=== PATIENT | male | born 1930 | race Caucasian/White ===

== ENCOUNTER 2018-11-29 18:47 | Inpatient (IN) | payer OTHER ==
[~2018-11-29] VITALS: Ht 167.6 cm; Wt 73.9 kg
--- NOTE | 2018-11-29 18:47 | NUR ---
Patient BIBA [facility] accompanied by Robin 183, triaged by RN. Waiting for an available bed.
[2018-11-29 18:50] VITALS: BP 131/76
--- NOTE | 2018-11-29 18:50 | NUR ---
Patient transferred to bed 1. RN evaluating patient at bedside.
--- NOTE | 2018-11-29 18:59 | NUR ---
BIB [facility] FROM HOME WITH C/O SEPTIC, ALOC, AND SOB X 1 DAY. ON CONTINOUS BREATHING TX WITH ALBUTEROL UPON ARIVAL. PT NON VERBAL. HX ALL TAKEN FROM [facility]; STROKE 2 YRS AGO RX; SEE MED SHEETS Addendum: 11/29/18 at 1904 by [email or web address] PT HAS G TUBE AT ABDOMEN
--- NOTE | 2018-11-29 19:27 | NUR ---
Pt report given to MICHAEL PRITCHARD. Transfer of care at this time.
--- NOTE | 2018-11-29 19:27 | NUR ---
ASSUMED CARE OF PT FROM MACHO BOWLES
[2018-11-29] MEDS ORDERED: NACL 0.9% 1,000 ML IV ONE (19:30)
[2018-11-29] MEDS ORDERED: ALBUTEROL SULFATE/IPRATROPIU 3 ML SOL IH ONE (19:30)
--- NOTE | 2018-11-29 19:30 | NUR ---
# 14 FR Urinary catheter inserted utilizing sterile technique. Immediate return of 135 ml YELLOW CLEAR urine noted. Urine sample collected and sent to lab. Pt tolerated procedure WELL. CATH REMOVED, INTACT.
[2018-11-29] MEDS ORDERED: RIVA20TA PO (19:44)
[2018-11-29] MEDS ORDERED: FINA5TAB1 PO (19:44)
[2018-11-29] MEDS ORDERED: LEVE100S PO (19:44)
[2018-11-29] MEDS ORDERED: CAR30 PO (19:44)
[2018-11-29] MEDS ORDERED: METO25TA PO (19:44)
[2018-11-29] MEDS ORDERED: DIGO0.122 PO (19:44)
[2018-11-29] MEDS ORDERED: ACETAMINOPHEN 650 MG SUPP RC ONE (20:15)
[2018-11-29 20:22] LABS: BASOPHILS % (AUTO) 0.2 % (0.0-2.0); EOSINOPHILS % (AUTO) 0.3 % (0.0-4.0); HEMATOCRIT 37.3 % (36-52); HEMOGLOBIN 11.9 g/dL (12.0-18.0); LYMPHOCYTES # (AUTO) 1.8 K/uL (2.0-11.5); LYMPHOCYTES % (AUTO) 13.9 % (20.5-51.1); MEAN CORPUSCULAR HEMOGLOBIN 30 pg (27-31); MEAN CORPUSCULAR HGB CONC 32 g/dL (33-37); MEAN CORPUSCULAR VOLUME 94.9 fL (80-94); MONOCYTES % (AUTO) 7.4 % (1.7-9.3); NEUTROPHILS # (AUTO) 10.3 K/uL (1.8-7.7); NEUTROPHILS % (AUTO) 78.2 % (42.2-75.2); PLATELET COUNT (AUTO) 199 K/uL (140-450); RED BLOOD CELL COUNT(AUTO) 3.93 MIL/uL (4.20-6.10); RED CELL DISTRIBUTION WIDTH 15.6 % (11.6-13.7); WHITE BLOOD COUNT (AUTO) 13.2 K/uL (4.8-10.8)
[2018-11-29 20:29] LABS: APPEARANCE,URINE CLEAR (CLEAR); BILIRUBIN,URINE NEGATIVE (NEGATIVE); BLOOD, URINE NEGATIVE (NEGATIVE); COLOR,URINE YELLOW (YELLOW); LEUKOCYTE ESTERASE ,URINE NEGATIVE (NEGATIVE); NITRITE, URINE NEGATIVE (NEGATIVE); UGLUCOSE 3+ (NEGATIVE)
[2018-11-29 20:31] LABS: ANION GAP 12.6 (8-16); CARBON DIOXIDE 27.9 mmol/L (21-32); CHLORIDE 101 mmol/L (98-107); CREATININE 0.8 mg/dL (0.7-1.3); GLUCOSE 258 mg/dL (74-106); POTASSIUM 3.5 mmol/L (3.5-5.1); SODIUM SERUM 138 mmol/L (136-145); UREA NITROGEN, BLOOD 13 mg/dL (7-18)
[2018-11-29 20:37] LABS: ALBUMIN 2.3 g/dL (3.4-5.0); ASPARTATE AMINOTRANSFERASE 25 U/L (15-37); TOTAL BILIRUBIN 0.9 mg/dL (0.0-1.0)
[2018-11-29] MEDS ORDERED: PIPERACILLIN/TAZOBACTAM 3.375 GM in DEXTROSE 5% 50 ML IV ONE (20:40)
[2018-11-29 20:41] LABS: PROTHROMBIN TIME 13.2 secs (10.8-13.4)
[2018-11-29] MEDS ORDERED: PIPERACILLIN/TAZOBACTAM 3.375 GM VIAL IV ONE (20:49)
--- NOTE | 2018-11-29 20:53 | NUR ---
PT CLEANED AND REPOSITIONED. SHEETS CHANGED. PT FAMILY AT BEDSIDE AT THIS TIME. ALL QUESTIONS AND CONCERNS ADDRESSED.
--- NOTE | 2018-11-29 21:05 | NUR ---
FLU SWAB COMPLETE.
--- NOTE | 2018-11-29 21:32 | NUR ---
PT IN BED, ALL VSS.
[2018-11-29] MEDS ORDERED: ONDANSETRON 4 MG/2 ML VIAL IM/IVP PRN (22:25)
[2018-11-29] MEDS ORDERED: HYDROcodone/APAP 7.5/325 MG 1 TAB PO PRN (22:25)
[2018-11-29] MEDS ORDERED: DOCUSATE SODIUM 100 MG GELCAP PO PRN (22:25)
[2018-11-29] MEDS ORDERED: ACETAMINOPHEN 325 MG TAB PO PRN (22:25)
[2018-11-29] MEDS ORDERED: MEDICATION REC. PHARMACY CONS. 1 EA MISC MC PRN (22:30)
--- NOTE | 2018-11-29 22:54 | NUR ---
Patient will be admitted to care of DR RICHEY. Admited to TELE. Will go to room 107-B. Belongings list completed. Report to MACHO MEDINA.
--- NOTE | 2018-11-29 22:55 | NUR ---
Patient arrived in unit via [place], assisted by two TRAVELING FREIGHT AGENT's; patient is A/Ox1, drowsy and aphasic. Unable to ambulate from [facility]. Introduced self, updated board, oriented patient to hospital environment. No SOB or distress noted, on O2 at 2LPM via nasal cannula. IV site on right hand, 22 gauge, flushed and patent. Skin intact. Chief complaint of SOB and ALOC. Diagnosis is Sepsis, unknown source. Vital signs upon admission are as follows: BP 134/59, RR 21, HR 84, Temp 98.2 degrees F., O2Sat at 96% on O2 2LPM. Bed in the lowest position, call light within reach. Initial assessment done. Will continue to monitor.
[2018-11-29] MEDS ORDERED: NACL 0.9% 1,000 ML IV SCH (23:00)
[2018-11-29 23:08] LABS: CHOL/HDL RATIO 2.9 (1-4.5); FREE T4 (FREE THYROXINE) 1.06 ng/dL (0.76-1.46); MAGNESIUM 2.3 mg/dL (1.8-2.4); PHOSPHORUS 1.9 mg/dL (2.5-4.9); THYROID STIMULATING HORMONE 1.62 uIU/mL (0.34-3.74)
[2018-11-30] VITALS: BP 127/57
[2018-11-30] MEDS ORDERED: SODIUM PHOS / POTASSIUM PHOS 1 PKT PDR GT SCH
[2018-11-30] MEDS: DEXT 5% /NACL 0.9% 1,000 ML IV SCH ×3 (00:10→15:44)
--- NOTE | 2018-11-30 00:40 | NUR ---
Vitals taken; notice patient was shaking/possible seizure. Dr. Laws made aware; orders made and carried out. Will continue to monitor.
[2018-11-30] MEDS ORDERED: LORazepam 2 MG/ML VIAL IVP PRN (00:45)
--- NOTE | 2018-11-30 02:00 | NUR ---
Frequent checks made, no distress noted.
[2018-11-30 04:00] VITALS: BP 147/64
--- NOTE | 2018-11-30 04:05 | NUR ---
Vitals taken, patient asleep, visible chest rise and fall noted.
--- NOTE | 2018-11-30 07:05 | NUR ---
Endorsed patient to AM shift RN; patient in stable condition.
--- NOTE | 2018-11-30 07:06 | NUR ---
RECEIVED REPORT FROM PM NURSE AT BEDSIDE. PT IS ON SEIZURE PRECAUTION. AOX1/ HAS RT WRIST 22 G. IVF INFUSING WELL. PT IS APHASIC, IS NPO . PT HAS G-TUBE . NO TUBE FEEDING STARTED ON PT YET. SIDE RAILS PADDED, FALL RISK PROTOCOL IN PLACE. WILL CONTINUE TO MONITOR PT.
[2018-11-30 07:17] LABS: BASOPHILS % (AUTO) 0.3 % (0.0-2.0); EOSINOPHILS % (AUTO) 0.3 % (0.0-4.0); HEMATOCRIT 38.6 % (36-52); HEMOGLOBIN 12.4 g/dL (12.0-18.0); LYMPHOCYTES # (AUTO) 0.8 K/uL (2.0-11.5); LYMPHOCYTES % (AUTO) 6.2 % (20.5-51.1); MEAN CORPUSCULAR HEMOGLOBIN 31 pg (27-31); MEAN CORPUSCULAR HGB CONC 32 g/dL (33-37); MEAN CORPUSCULAR VOLUME 95.8 fL (80-94); MONOCYTES # (AUTO) 0.6 K/uL (0.8-1.0); MONOCYTES % (AUTO) 4.7 % (1.7-9.3); NEUTROPHILS # (AUTO) 10.9 K/uL (1.8-7.7); NEUTROPHILS % (AUTO) 88.5 % (42.2-75.2); PLATELET COUNT (AUTO) 220 K/uL (140-450); RED BLOOD CELL COUNT(AUTO) 4.02 MIL/uL (4.20-6.10); RED CELL DISTRIBUTION WIDTH 15.6 % (11.6-13.7); WHITE BLOOD COUNT (AUTO) 12.3 K/uL (4.8-10.8)
[2018-11-30 07:55] VITALS: BP 126/57
--- NOTE | 2018-11-30 08:38 | NUR ---
PATIENT HAS BEEN SCREENED AND CATEGORIZED HIGH NUTRITION RISK. PATIENT WILL BE SEEN WITHIN 1-2 DAYS OF ADMISSION. 11/30/18-12/01/[address]
[2018-11-30] MEDS ORDERED: levETIRAcetam 100 MG/ML ORASYR PO SCH (09:00)
[2018-11-30] MEDS ORDERED: DIGOXIN 0.125 MG TAB PO SCH (09:00)
[2018-11-30] MEDS: FINASTERIDE 5 MG TAB PO SCH (09:18)
[2018-11-30] MEDS: levETIRAcetam 100 MG/ML ORASYR PO SCH ×2 (09:18→20:47)
[2018-11-30] MEDS: LACTOBACILLUS RHAMNOSUS GG 1 EACH CAP PO SCH (09:18)
[2018-11-30] MEDS: PIPER/TAZO 3.375GM/D5W PREMIX 50 ML IV SCH ×3 (09:32→22:13)
--- NOTE | 2018-11-30 09:40 | NUR ---
ADMINISTERED MEDS TO PT ORDERED VIA G-TUBE. GT PATENT AND INTACT. NO GASTRIC RESIDUAL OBTAINED. PT TRANSPORTATION ESCORT AT THE BEDSIDE. STATES PT SLEEPS ALL THE TIME/ GETS ALL MEDS THROUGH HIS GT. NO SIGN OF DISTRESS NOTED. PTS LACTIC ACID 3.9, AWARE. WILL CONTINUE TO MONITOR PT
[2018-11-30] MEDS ORDERED: CLINICAL MONITORING MC PRN (10:25)
--- NOTE | 2018-11-30 11:00 | NUR ---
PT LYING ON HIS BED. CONTINUOUS IMPROVEMENT MANAGER AT THE BEDSIDE. TALKED TO HIS SON EARLIER, UPDATED ON PT. INFORMED PTS SON THAT PT IS BEING TREATED WITH ABX FOR HIS SEPSIS AND HAS HIGHER LACTIC ACID. NO SIGN OF DISTRESS NOTED. ALL SAFETY MEASURE IN PLACE. WILL CONTINUE TO MONITOR PT.
[2018-11-30 11:10] LABS: ANION GAP 17.2 (8-16); CARBON DIOXIDE 24.9 mmol/L (21-32); CHLORIDE 105 mmol/L (98-107); CREATININE 0.8 mg/dL (0.7-1.3); GLUCOSE 189 mg/dL (74-106); POTASSIUM 4.1 mmol/L (3.5-5.1); SODIUM SERUM 143 mmol/L (136-145); UREA NITROGEN, BLOOD 9 mg/dL (7-18)
[2018-11-30 12:00] VITALS: BP 115/52
[2018-11-30] MEDS ORDERED: DILTIAZEM 30 MG TAB PO SCH (13:00)
--- NOTE | 2018-11-30 13:55 | NUR ---
CHECKED ON THE PT. WITH SURGICAL TECH AT BEDSIDE. NO SIGN OF DISTRESS NOTED. NO SEIZURE NOTED AT THIS TIME. PT FAMILY AT THE BEDSIDE. WILL CONTINUE TO MONITOR PT.
--- NOTE | 2018-11-30 14:10 | NUR ---
11/30/18 RD INITIAL ASSESSMENT COMPLETED PLEASE REFER TO NUTRITION ASSESSMENT UNDER CARE ACTIVITY FOR ESTIMATED NUTRITIONAL NEEDS. 1. CONTINUE NPO MEDICALLY APPROPRIATE 2. WHEN PT IS STABLE TO RECEIVE NUTRITION, RECOMMEND VITAL 1.2 AT 65 ML/HR -THIS WILL PROVIDE A VOLUME OF 1560 ML, 1872 KCAL, 117 GRAM PROTEIN. IT WILL MEET 100% OF PT�S ENERGY AND PROTEIN NEEDS. 3. RECOMMEND FWF [address] TO FOLLOW-UP 2-3 DAYS, HIGH RISK JANICE LABOY RD
[2018-11-30 16:00] VITALS: BP 121/66
[2018-11-30] MEDS: RIVAROXABAN 10 MG TAB PO SCH (16:50)
--- NOTE | 2018-11-30 16:50 | NUR ---
ADMINISTERED MEDS TO PT ORDERED. PT LYING ON HIS LFT LATERAL POSITION. NO SIGN OF DISTRESS NOTED. PT CAREGIVER AT THE BEDSIDE. GT PATENT AND FLUSHED WELL. NO GASTRIC RESIDUAL NOTED FORM THE PT, HAS SLIGHTLY DISTENSION OF THE STOMACH. KUB DONE IN AM, WAITING FOR THE RESULT. PT DAUGHTER CALLED REGARDING THE GT TUBE FEEDING. INFORMED HER THAT WAITING ON THE KUB RESULT TO RULE OUT THE OBSTRUCTION OF THE STOMACH. VERBALIZED UNDERSTANDING. WILL CONTINUE TO MONITOR PT.
[2018-11-30] MEDS: DILTIAZEM 60 MG TAB PO SCH ×2 (18:00→23:58)
--- NOTE | 2018-11-30 19:20 | NUR ---
ENDORSED PT TO PM NURSE AT BEDSIDE. PT IN STABLE CONDITION.
--- NOTE | 2018-11-30 19:21 | NUR ---
RECEIVED REPORT FROM DAY SHIFT NURSE ERNA-RN AT BEDSIDE. PT FAMILY AT BEDSIDE. AOX1- NON-VERBAL, ON 2L/NC, RIGHT HAND #22G AND G-TUBE IN PLACE. DISCUSSED PLAN OF CARE AND PT FAMILY VERBALIZED UNDERSTANDING. NO S/S OF RESPIRATORY DISTRESS OR DISCOMFORT AT THIS TIME. BED IN LOWEST POSITION, BED BREAKS ON, BOTH SIDE RAILS UP AND BOTH FALL AND SEIZURE PRECAUTIONS ARE IN PLACE. BEDSIDE TABLE AND CALL LIGHT ARE WITHIN REACH. WILL CONTINUE TO MONITOR.
[2018-11-30 20:00] VITALS: BP 145/53
--- NOTE | 2018-11-30 20:00 | NUR ---
VITAL SIGNS TAKEN AND TOLERATED WELL. NO S/S OF RESPIRATORY DISTRESS OR DISCOMFORT NOTED AT THIS TIME. WILL CONTINUE TO MONITOR.
[2018-11-30] MEDS: METOPROLOL 50 MG TAB PO SCH (20:47)
--- NOTE | 2018-11-30 20:47 | NUR ---
SCHEDULED MEDICATION GIVEN AND TOLERATED WELL. ZERO RESIDUAL. NO S/S OF RESPIRATORY DISTRESS OR DISCOMFORT NOTED AT THIS TIME. WILL CONTINUE TO MONITOR.
--- NOTE | 2018-11-30 21:30 | NUR ---
G-TUBE FEEDING WITH VITAL AF 1.2 STARTING AT 35ML/HR AND INCREASE 10ML/HR Q6H, WATER FLUSHES 150ML @6H. HOLD IF RESIDUAL IS <200ML, REASSESS IN ONE HOUR AND RESUME IF RESIDUAL IS <50ML. PT TOLERATING WELL. NO S/S OF RESPIRATORY DISTRESS OR DISCOMFORT NOTED AT THIS TIME. WILL CONTINUE TO MONITOR.
--- NOTE | 2018-11-30 22:13 | NUR ---
SCHEDULED MEDICATION ZOSYN GIVEN AND TOLERATED WELL. NO S/S OF RESPIRATORY DISTRESS OR DISCOMFORT NOTED AT THIS TIME. WILL CONTINUE TO MONITOR.
--- NOTE | 2018-11-30 23:58 | NUR ---
VITAL SIGNS TAKEN AND TOLERATED WELL. SCHEDULED MEDICATION CARDIZEM GIVEN AND TOLERATED WELL. NO S/S OF RESPIRATORY DISTRESS OR DISCOMFORT NOTED AT THIS TIME. WILL CONTINUE TO MONITOR.
[2018-12-01] VITALS: BP 118/47
--- NOTE | 2018-12-01 02:00 | NUR ---
PT SLEEPING IN BED. NO S/S OF RESPIRATORY DISTRESS OR DISCOMFORT NOTED AT THIS TIME. WILL CONTINUE TO MONITOR.
[2018-12-01 04:00] VITALS: BP 113/50
--- NOTE | 2018-12-01 04:00 | NUR ---
VITAL SIGNS TAKEN AND TOLERATED WELL. NO S/S OF RESPIRATORY DISTRESS OR DISCOMFORT NOTED AT THIS TIME. WILL CONTINUE TO MONITOR.
[2018-12-01] MEDS: DILTIAZEM 60 MG TAB PO SCH ×3 (05:35→17:13)
--- NOTE | 2018-12-01 05:35 | NUR ---
SCHEDULED MEDICATION GIVEN AND TOLERATED WELL. NO S/S OF RESPIRATORY DISTRESS OR DISCOMFORT NOTED AT THIS TIME. WILL CONTINUE TO MONITOR.
[2018-12-01 06:19] LABS: BASOPHILS # (AUTO) 0.1 K/uL (0.00-0.22); BASOPHILS % (AUTO) 0.6 % (0.0-2.0); EOSINOPHILS # (AUTO) 0.4 K/uL (0-0.4); EOSINOPHILS % (AUTO) 4.1 % (0.0-4.0); HEMATOCRIT 33.8 % (36-52); HEMOGLOBIN 11.2 g/dL (12.0-18.0); LYMPHOCYTES % (AUTO) 10.5 % (20.5-51.1); MEAN CORPUSCULAR HEMOGLOBIN 32 pg (27-31); MEAN CORPUSCULAR HGB CONC 33 g/dL (33-37); MEAN CORPUSCULAR VOLUME 95.4 fL (80-94); MONOCYTES # (AUTO) 0.6 K/uL (0.8-1.0); MONOCYTES % (AUTO) 6.9 % (1.7-9.3); NEUTROPHILS # (AUTO) 7.1 K/uL (1.8-7.7); NEUTROPHILS % (AUTO) 77.9 % (42.2-75.2); PLATELET COUNT (AUTO) 207 K/uL (140-450); RED BLOOD CELL COUNT(AUTO) 3.55 MIL/uL (4.20-6.10); RED CELL DISTRIBUTION WIDTH 15.3 % (11.6-13.7); WHITE BLOOD COUNT (AUTO) 9.1 K/uL (4.8-10.8)
[2018-12-01 06:33] LABS: ANION GAP 8.7 (8-16); CARBON DIOXIDE 29.9 mmol/L (21-32); CHLORIDE 108 mmol/L (98-107); CREATININE 0.7 mg/dL (0.7-1.3); GLUCOSE 167 mg/dL (74-106); POTASSIUM 3.6 mmol/L (3.5-5.1); SODIUM SERUM 143 mmol/L (136-145); UREA NITROGEN, BLOOD 8 mg/dL (7-18)
[2018-12-01] MEDS: PIPER/TAZO 3.375GM/D5W PREMIX 50 ML IV SCH ×3 (06:35→20:20)
--- NOTE | 2018-12-01 06:35 | NUR ---
SCHEDULED MEDICATION ZOSYN GIVEN AND TOLERATED WELL. NO S/S OF RESPIRATORY DISTRESS OR DISCOMFORT NOTED AT THIS TIME. WILL CONTINUE TO MONITOR.
[2018-12-01] MEDS: DEXT 5% /NACL 0.9% 1,000 ML IV SCH (06:39)
[2018-12-01 06:43] LABS: MAGNESIUM 2.2 mg/dL (1.8-2.4); PHOSPHORUS 2.3 mg/dL (2.5-4.9)
--- NOTE | 2018-12-01 07:05 | NUR ---
ENDORSED PT CARE TO DAY SHIFT NURSE SITAL-RN FOR CONTINUITY OF CARE.
--- NOTE | 2018-12-01 07:06 | NUR ---
RECEIVED REPORT FROM PM NURSE AT BEDSIDE. PT ON TUBE FEEDING, INFUSING AT 45 ML/HR. TO BE INCREASED BY 10 ML EVERY 6 HRS, GAOL IS 65 ML/HR.TUBE FEEDING INFUSING WELL. PT IS ON SEIZURE PRECAUTION. HAS IVF INFUSING WELL. ALL SAFETY MEASURE IN PLACE. VS NOTED NORMAL . WILL CONTINUE TO MONITOR PT.
[2018-12-01 07:55] VITALS: BP 125/57
[2018-12-01 08:23] LABS: FOLIC ACID 17.5 ng/mL (>3.0)
[2018-12-01] MEDS: METOPROLOL 50 MG TAB PO SCH ×2 (09:40→20:22)
[2018-12-01] MEDS: FINASTERIDE 5 MG TAB PO SCH (09:40)
[2018-12-01] MEDS: LACTOBACILLUS RHAMNOSUS GG 1 EACH CAP PO SCH (09:40)
[2018-12-01] MEDS: levETIRAcetam 100 MG/ML ORASYR PO SCH ×2 (09:41→20:21)
[2018-12-01] MEDS: DIGOXIN 0.125 MG/2.5 ML UDC GT SCH (09:41)
--- NOTE | 2018-12-01 10:03 | NUR ---
ADMINISTERED MEDS O PT ORDERED. TELEPHONE ANSWERER AT THE BEDSIDE. PT HAS TUBE FEEDING RUNNING. INCREASED TO 55 ML/HR, 3 ML GASTRIC RESIDUAL OBSERVED. NO SIGN OF DISTRESS. PT HAS THE FLAME, SUCTIONED THE PT.TALKED TO PT FAMILY, ASKING IF PT CAN GET THE BREATHING TREATMENT PT GETS BREATHING TREATMENT AT HOME FOR THE FLAMES. CHARGE NURSE MADE AWARE. WILL TALK TO MD AT BED MOE.. NO DISTRESS NOTED AT THIS TIME. WILL CONTINUE TO MONITOR PT.
[2018-12-01] MEDS ORDERED: ALBUTEROL SULFATE/IPRATROPIU 3 ML SOL IH PRN (10:30)
[2018-12-01 12:00] VITALS: BP 118/57
--- NOTE | 2018-12-01 12:33 | NUR ---
ADMINISTERED MEDS TO PT ORDERED. PT LYING COMFORTABLY IN HIS BED. SPD MANAGER AT THE BEDSIDE. PT HAS NO GASTRIC RESIDUAL. HAS TUBE FEEDING INFUSING WELL. ALL SAFETY MEASURE IN PL;SANDOR. DR PEREZ AT THE BEDSIDE. WILL CONTINUE TO MONITOR PT.
[2018-12-01] MEDS: ALBUTEROL SULFATE/IPRATROPIU 3 ML SOL IH SCH ×2 (13:56→19:34)
--- NOTE | 2018-12-01 14:10 | NUR ---
BENNIE AT BEDSIDE FOR INTERPRETATION FOR INCENTIVE SPIROMETRY THERAPY PATIENT UNABLE TO SUSTAIN ADEQUATE INSPIRATION CABLE TELEVISION INSTALLER TO ATTEMPT AGAIN AT A LATER TIME
--- NOTE | 2018-12-01 14:23 | NUR ---
CHECKED PT AT HIS BEDSIDE. PT SEEMS MORE AWAKE, THAN BEFORE. PT SEEN BY NEUROLOGIST, AWARE. CHECKED ON THE IV ACCESS SITE, INFUSING WELL. ELEVATED RT HAND. IVF INFUSING WELL. PT HAS GT INFUSING WELL. NO SIGN OF DISTRESS. PT SEEN BY RT. MARINA PORTER AT THE BEDSIDE. WILL CONTINUE TO MONITOR PT.
[2018-12-01 16:00] VITALS: BP 115/48
[2018-12-01] MEDS: SODIUM PHOS / POTASSIUM PHOS 1 PKT PDR GT SCH (17:10)
[2018-12-01] MEDS: RIVAROXABAN 10 MG TAB PO SCH (17:15)
--- NOTE | 2018-12-01 17:32 | NUR ---
Internal Controls Analyst Note: I called and spoke with patient's son Jakob Cronin . He provided me with the following information. Patient lives alone at home. However, patient has 5 adult children including Jakob who visit patient at home and assist him with ADLs. Patient is never left alone. He has a angy lift, wheelchair, and hospital bed (no home O2). Patient's pcp is Nathan Stewart and his last appt with was about 6 months ago. Patient's children do not have any difficulty filling patient's prescriptions. Patient's family pays for private transportation to pcp's office. Patient was not receiving home health services prior to hospital admission. Jakob stated patient does not have capacity to make medical decisions and provided hospital staff with a copy of Power of Orthopedic Radiologic Technologist for health care documents. I reviewed documents for validity, no concerns noted. Documents indicate Jakob is patient's health care decision maker. Jakob would like patient to return home upon discharge, no temporary snf placement. Deputy County Clerk and/or Mechanical Apprentice will follow up as needed.
--- NOTE | 2018-12-01 19:20 | NUR ---
ENDORSED PT TO PM NURSE AT BEDSIDE. PT IN STABLE CONDITION.
--- NOTE | 2018-12-01 19:25 | NUR ---
SON AND DAUGHTER IN LAW AT BEDSIDE. STATED THAT PATIENT IS PHYSICALLY UNABLE TO PERFORM I.S. DUE TO EFFECTS OF PREVIOUS STROKE AND DIFFICULTY SWALLOWING.
--- NOTE | 2018-12-01 19:26 | NUR ---
RECEIVED REPORT FROM MACHO UMANZOR FOR CONTINUITY OF CARE. PT IS APHASIC ON 2L O2 VIA NASAL CANNULA. PT IS UNABLE TO FOLLOW COMMANDS, UNABLE TO MAKE NEEDS KNOWN. PT IS BEDBOUND AFTER STROKE IN 2017, AND SKIN IS INTACT. PT HAS A 22G IV TO RIGHT HAND, ASYMPTOMATIC AND INTACT. G-TUBE IN PLACE WITH TUBE FEEDING RUNNING. NO SIGNS OF DISTRESS NOTED AT THIS TIME. DISCUSSED PLAN OF CARE WITH PT, PT VERBALIZED UNDERSTANDING. PT DENIES PAIN. VITAL SIGNS STABLE. POSITIONED PT FOR COMFORT. BED IN LOWEST POSITION AND CALL LIGHT WITHIN REACH. WILL CONTINUE TO MONITOR.
[2018-12-01 20:00] VITALS: BP 130/47
--- NOTE | 2018-12-01 20:27 | NUR ---
ADMINISTERED SCHEDULED MEDICATIONS WITH WATER FLUSH AFTER EACH MED ADMINISTRATION. PT TOLERATED WELL. BED IN LOWEST POSITION, CALL LIGHT WITHIN REACH. WILL CONTINUE TO MONITOR.
[2018-12-01] MEDS ORDERED: MUPIROCIN CA NASAL 2% 1GM TUBE NS SCH (21:00)
[2018-12-01] MEDS ORDERED: INFLUENZA VIRUS VACCINE QUAD 0.5 ML SYR IMVAC PRN (21:40)
[2018-12-02] VITALS: BP 113/44
--- NOTE | 2018-12-02 | NUR ---
VITAL SIGNS STABLE, DENIES HAVING ANY PAIN. NO SIGNS OF DISTRESS NOTED. POSITIONED PT FOR COMFORT. BED IN LOWEST POSITION AND CALL LIGHT WITHIN REACH. WILL CONTINUE TO MONITOR.
[2018-12-02] MEDS: DILTIAZEM 60 MG TAB PO SCH ×4 (00:33→18:24)
--- NOTE | 2018-12-02 02:20 | NUR ---
PT HAD BM, AND WAS CLEANED AND REPOSITIONED PT FOR COMFORT. BED IN LOWEST POSITION AND CALL LIGHT WITHIN REACH. WILL CONTINUE TO MONITOR.
[2018-12-02 04:00] VITALS: BP 135/64
[2018-12-02] MEDS: PIPER/TAZO 3.375GM/D5W PREMIX 50 ML IV SCH ×2 (05:13→12:01)
--- NOTE | 2018-12-02 05:14 | NUR ---
ADMINISTERED SCHEDULED MEDICATIONS, PT TOLERATED WELL. BED IN LOWEST POSITION AND CALL LIGHT WITHIN REACH. WILL CONTINUE TO MONITOR.
--- NOTE | 2018-12-02 05:53 | NUR ---
STARTED NEW 24G IV TO LEFT HAND, PT TOLERATED WELL.
[2018-12-02 06:38] LABS: BASOPHILS % (AUTO) 0.8 % (0.0-2.0); EOSINOPHILS # (AUTO) 0.4 K/uL (0-0.4); EOSINOPHILS % (AUTO) 5.6 % (0.0-4.0); HEMATOCRIT 35.2 % (36-52); HEMOGLOBIN 11.4 g/dL (12.0-18.0); LYMPHOCYTES % (AUTO) 16.3 % (20.5-51.1); MEAN CORPUSCULAR HEMOGLOBIN 31 pg (27-31); MEAN CORPUSCULAR HGB CONC 32 g/dL (33-37); MEAN CORPUSCULAR VOLUME 95.3 fL (80-94); MONOCYTES # (AUTO) 0.4 K/uL (0.8-1.0); MONOCYTES % (AUTO) 6.1 % (1.7-9.3); NEUTROPHILS # (AUTO) 4.5 K/uL (1.8-7.7); NEUTROPHILS % (AUTO) 71.2 % (42.2-75.2); PLATELET COUNT (AUTO) 236 K/uL (140-450); RED BLOOD CELL COUNT(AUTO) 3.69 MIL/uL (4.20-6.10); RED CELL DISTRIBUTION WIDTH 15.4 % (11.6-13.7); WHITE BLOOD COUNT (AUTO) 6.4 K/uL (4.8-10.8)
[2018-12-02 06:56] LABS: ANION GAP 10.8 (8-16); CARBON DIOXIDE 28.8 mmol/L (21-32); CHLORIDE 107 mmol/L (98-107); CREATININE 0.6 mg/dL (0.7-1.3); GLUCOSE 155 mg/dL (74-106); POTASSIUM 3.6 mmol/L (3.5-5.1); SODIUM SERUM 143 mmol/L (136-145); UREA NITROGEN, BLOOD 12 mg/dL (7-18)
--- NOTE | 2018-12-02 07:05 | NUR ---
ENDORSED REPORT TO OBSTETRICS SPECIALIST RN LYRIC AT BEDSIDE FOR CONTINUITY OF CARE. PATIENT IN STABLE CONDITION WAITING TO BE TRANSPORTED HOME. Addendum: 12/02/18 at 2049 by Edinson Arcos RN WRONG TIME: 1904
--- NOTE | 2018-12-02 07:10 | NUR ---
RECEIVED REPORT FROM STOCKROOM ATTENDANT RN ELIZABETH AT BEDSIDE FOR CONTINUITY OF CARE. PATIENT APHASIC, RESPIRATIONS EVEN AND UNLABORED ON O2 VIA NC. IV SITE PATENT, INTACT AND INFUSING IVF. PATIENT HAS GTUBE, GTUBE AUSCULTATED FOR PLACEMENT, 0 ML OR RESIDUAL NOTED. FLACC-0. UPDATED BOARD. SAFETY, SEIZURE, AND ISOLATION PRECAUTION IN PLACE, CALL LIGHT WITHIN REACH, WILL CONTINUE TO MONITOR PATIENT.
--- NOTE | 2018-12-02 07:20 | NUR ---
ENDORSED PT TO DAY SHIFT RN KY FOR CONTINUITY OF CARE. PT IN STABLE CONDITION.
[2018-12-02] MEDS ORDERED: BUDESONIDE 0.5 MG/2 ML NEBU INH SCH (07:30)
[2018-12-02] MEDS: ALBUTEROL SULFATE/IPRATROPIU 3 ML SOL IH SCH ×2 (07:30→14:01)
[2018-12-02 08:00] VITALS: BP 133/84
[2018-12-02] MEDS: levETIRAcetam 100 MG/ML ORASYR PO SCH (08:33)
[2018-12-02] MEDS: LACTOBACILLUS RHAMNOSUS GG 1 EACH CAP PO SCH (08:33)
[2018-12-02] MEDS: DIGOXIN 0.125 MG/2.5 ML UDC GT SCH (08:33)
[2018-12-02] MEDS: FINASTERIDE 5 MG TAB PO SCH (08:33)
[2018-12-02] MEDS: METOPROLOL 50 MG TAB PO SCH (08:33)
--- NOTE | 2018-12-02 08:33 | NUR ---
0 ML RESIDUAL NOTED VIA GTUBE. ORDERED MEDICATIONS GIVEN VIA GTUBE WITH 120 ML OF WATER. PATIENT TOLERATED IT WELL. FLACC-0, NO SIGNS OF DISTRESS OR SOB NOTED. SAFETY PRECAUTIONS IN PLACE, CALL LIGHT WITHIN REACH, WILL CONTINUE TO MONITOR PATIENT.
[2018-12-02] MEDS ORDERED: CHLORHEXADINE GLUC 2% CLOTH TP SCH (09:00)
[2018-12-02] MEDS ORDERED: MUPIROCIN CA NASAL 2% 1GM TUBE NS SCH (09:00)
[2018-12-02] MEDS: DEXT 5% /NACL 0.9% 1,000 ML IV SCH (09:12)
[2018-12-02] MEDS ORDERED: KEP500L GT (11:45)
--- NOTE | 2018-12-02 11:55 | NUR ---
0 ML RESIDUAL NOTED VIA GTUBE. ORDERED MEDICATIONS GIVEN VIA GTUBE WITH 60 ML OF WATER. PATIENT TOLERATED IT WELL. FLACC-0, NO SIGNS OF DISTRESS OR SOB NOTED. PATIENT'S NIECE, ARNOL AT BEDSIDE. INFORMED HER OF DISCHARGE ORDER BUT NO NEWS OF TRANSPORTATION YET, SHE VERBALIZED UNDERSTANDING. SAFETY, ISOLATION, AND SEIZURE PRECAUTIONS IN PLACE, CALL LIGHT WITHIN REACH, WILL CONTINUE TO MONITOR PATIENT.
[2018-12-02 12:02] VITALS: BP 108/46
--- NOTE | 2018-12-02 14:26 | NUR ---
Hr Intern Note: I received a call from patient's son Jakob Cronin . He stated [facility] takes patient to pcp's office and coordinating transportation services with [facility] [employer] requires a day in advance notice. I told him Thread Drawer Audrey will contact Thread Drawer from patient's health insurance plan and inquire if transportation services to home from hospital are available and if not Thread Drawer Audrey will obtain private pay quote for transportation. Thread Drawer Audrey made aware of above information and will contact Jakob Mehrdad to provide him with an update. Addendum: 12/02/18 at 1451 by Glenna VASQUES I verified patient's home address [address] [place] [id number] with patient's son Jakob Cronin
--- NOTE | 2018-12-02 14:30 | NUR ---
CALLED PATIENT'S SON ROSHNI BECAUSE ARNOL, PT'S NIECE AND CAREGIVE STATES THAT HE MAKES ALL THE DECISIONS. HE STATED THAT HE JUST SPOKE TO JACKIE GARNER, SHE WILL HANDLE TRANSPORT AND WILL INFORM RN ONCE IT IS DONE. RN VERBALIZED UNDERSTANDING. CALLED PATSY, SHE STATED THAT KENDRA MOSAIC TILE MAKER WILL BE WORKING ON PATIENT'S DISCHARGE AND WILL GIVE INFO ABOUT DISCHARGE TRANSPORT WHEN THEY BECOME AVAILABLE.
--- NOTE | 2018-12-02 14:54 | NUR ---
PERICO NOTE PER JOSE DANIEL GARNER, THE PATIENT HAS NO TRANSPORTATION GOING HOME TODAY. PER ANATOLIY CORONADO PH# [phone], PATIENT'S INSURANCE DOESN'T COVER TRANSPORTATION GOING HOME. I SPOKE WITH GONZÁLEZ OF [facility] TO GET A [place] QUOTE AND I LET THE PATIENT'S SON ROSHNI AUGUST KNOW. PER PATIENT'S SON ROSHNI AUGUST PH# [phone], HE WILL BE FINANCIALLY RESPONSIBLE FOR [facility]. I CONFIRMED WITH ROSHNI THE PATIENT'S HOME ADDRESS. [facility] # [phone], PATIENT WILL BE PICKED UP 1800 TIME TODAY TO GO HOME. CHARGE NURSE SHAHEED SANTANA.
[2018-12-02] MEDS: SODIUM PHOS / POTASSIUM PHOS 1 PKT PDR GT SCH (16:20)
--- NOTE | 2018-12-02 16:20 | NUR ---
0 ML RESIDUAL NOTED VIA GTUBE. ORDERED MEDICATIONS GIVEN VIA GTUBE WITH 60 ML OF WATER. PATIENT TOLERATED IT WELL. FLACC-0, NO SIGNS OF DISTRESS OR SOB NOTED. INFORMED ARNOL THAT PATIENT WILL BE DISCHARGED AT 1800 BY [facility]. SON ROSHNI AWARE. SAFETY PRECAUTIONS IN PLACE, CALL LIGHT WITHIN REACH, WILL CONTINUE TO MONITOR PATIENT.
[2018-12-02] MEDS: RIVAROXABAN 10 MG TAB PO SCH (16:21)
--- NOTE | 2018-12-02 18:30 | NUR ---
DISCHARGE INSTRUCTIONS GIVEN TO PATIENT'S DAUGHTER. SHE VERBALIZED UNDERSTANDING, SIGNED ALL PAPERWORK AND VERBALIZED UNDERSTANDING ABOUT PATIENT'S NEW PRESCRIPTION. 0 ML RESIDUAL NOTED VIA GTUBE. ORDERED MEDICATIONS GIVEN VIA GTUBE WITH 30 ML OF WATER. PATIENT TOLERATED IT WELL. SAFETY PRECAUTIONS IN PLACE, CALL LIGHT WITHIN REACH, WILL CONTINUE TO MONITOR PATIENT AND WAIT FOR TRANSPORT TO ARRIVE TO DISCHARGE PATIENT.
[2018-12-02] MEDS ORDERED: PNEUMOCOCCAL VACCINE 23 MCG/0.5 ML VIAL IMVAC SCH (18:40)
--- NOTE | 2018-12-02 18:50 | NUR ---
FLU AND PNA VACCINE GIVEN. NO REACTION NOTED AT THIS TIME. WILL WAIT AND ASSESS PATIENT. IV SITE REMOVED, IV CATHETER INTACT, MINIMAL BLOOD NOTED. TELE MONITOR REMOVED, ID BANDS CUT. [facility] IS PRESENT WAITING TO TRANSPORT PATIENT HOME.
--- NOTE | 2018-12-02 19:10 | NUR ---
RECEIVED REPORT ON PT FROM AM NURSE. AWAKE, ON BEDREST. PT IS FOR DC HOME TO BE PORCELAIN FINISHER BY [facility]. FAMILY AT BEDSIDE. AM NURSE REMOVED ALREADY IV ACCESS, TELE MONITOR AND ALL THE DISCHARGE PAPERS GIVEN TO PT/FAMILY BY AM NURSE. WILL CONTINUE TO MONITOR WHILE WAITING FOR TRANSPORT.
--- NOTE | 2018-12-02 19:35 | NUR ---
FAMILY BROUGHT THEIR OWN PADS FOR THE PURVI LIFT. TRANSFERRED PT FROM BED TO WHEELCHAIR WITH NO PROBLEM. PT COMFORTABLE IN THE WHEELCHAIR [facility] TOOK PT IN STABLE CONDITION TO BE DISCHARGE TO HOME. FAMILY TOOK ALL PERSONAL BELONGINGS.
== END 2018-12-02 19:35 | disposition home or self-care (01) | DRG 100 ==
LOC: MED 18:47 → MTU 22:28
PROVIDERS: ADMIT General Practice; ATTEND General Practice
PROC: 4A00X4Z Measurement of Central Nervous Electrical Activity, External Approach (ICD-10-PCS; principal; 2018-12-01)
DX: G40.909 Epilepsy, unspecified, not intractable, without status epilepticus (principal); E43 Unspecified severe protein-calorie malnutrition; R65.10 Systemic inflammatory response syndrome (SIRS) of non-infectious origin without acute organ dysfunction; I69.351 Hemiplegia and hemiparesis following cerebral infarction affecting right dominant side; I50.42 Chronic combined systolic (congestive) and diastolic (congestive) heart failure; Z68.26 Body mass index [BMI] 26.0-26.9, adult; E83.39 Other disorders of phosphorus metabolism; Z93.1 Gastrostomy status; I10 Essential (primary) hypertension; Z60.2 Problems related to living alone; I27.20 Pulmonary hypertension, unspecified; R73.9 Hyperglycemia, unspecified; N40.0 Benign prostatic hyperplasia without lower urinary tract symptoms; Z74.01 Bed confinement status; I48.91 Unspecified atrial fibrillation; D63.8 Anemia in other chronic diseases classified elsewhere
CPT/HCPCS: 36415; 36600; 70450; 71045; 74018; 80048; 80053; 80162; 81003; 82140; 82550; 82607; 82728; 82746; 82803; 83036; 83540; 83605; 83690; 83735; 83880; 84100; 84439; 84443; 84484; 85025; 85045; 85610; 85730; 87040; 87081; 87086; 87804; 90732; 93005; 94640; 95816; 96361; 96365; 99285; C1758; J2060; J2543; J7030; J7042; J7060; J7620; J7626; Q0092

== ENCOUNTER 2019-02-21 15:53 | Inpatient (IN) | payer OTHER ==
[~2019-02-21] VITALS: Ht 172.7 cm; Wt 81.2 kg
[~2019-02-21 15:53] MED LIST: CAR30 PO; DIGO0.122 PO; FINA5TAB1 PO; KEP500L GT; LEVE100S PO; METO25TA PO; RIVA20TA PO
--- NOTE | 2019-02-21 15:55 | NUR ---
PT MIKALAA ALS TO ER BED 10, RT'S BEDSIDE
[2019-02-21 15:57] VITALS: BP 131/55
--- NOTE | 2019-02-21 16:00 | NUR ---
88 Y MALE BIBA FOR LOW OXYGEN SATURATION AT HOME. PT ON ARRIVAL WAS AT 88% RA, PT PLACED ON NON-REBREATHER 02 SAT AT 99%. PT AT NORMAL GCS, HX STROKE W/ RT SIDE DEFICEIT. PT IS NOT ON OXYGEN AT HOME AND IS DNR WITH COMFORT MEASURE. PT RESPONSIVE TO PAIN. EDEMA PRESENT BILATERALLY IN LOWER EXTREMITIES, NON-PITTING. PMH EMPHYSEMA, SEIZURE, CARDIAC PROBLEMS
--- NOTE | 2019-02-21 16:01 | NUR ---
PT IS NON-VERBAL. BED IS DOWN, LOCKED, BED RAIL X 2, ERMD TO SEE PT. SEIZURE PRECAUTIONS IN PLACE. PMH- STROKE R SIDED DEFICET
--- NOTE | 2019-02-21 16:02 | NUR ---
DR. PAINTING BEDSIDE EVALUATING PT
--- NOTE | 2019-02-21 16:02 | NUR ---
PT HAS GTUBE
--- NOTE | 2019-02-21 16:14 | NUR ---
PT STARTED ON NC AT 4 L. PATIENTS OXYGEN AT 100%
[2019-02-21] MEDS ORDERED: NACL 0.9% 1,000 ML IV ONE (16:15)
--- NOTE | 2019-02-21 16:19 | NUR ---
XRAY AT BEDSIDE
--- NOTE | 2019-02-21 16:19 | NUR ---
RT AT BEDSIDE
--- NOTE | 2019-02-21 16:20 | NUR ---
# 14 FR Urinary catheter inserted utilizing sterile technique. Immediate return of 300 ml YELLOW urine noted. Urine sample collected and sent to lab. Pt tolerated procedure WELL.
--- NOTE | 2019-02-21 16:32 | NUR ---
LAB AT BEDSIDE
--- NOTE | 2019-02-21 16:38 | NUR ---
PT TITRATED DOWN TO 2 L NC. OXYGEN SATURATING AT 94%
[2019-02-21 16:54] LABS: BASOPHILS # (AUTO) 0.1 K/uL (0.00-0.22); BASOPHILS % (AUTO) 0.7 % (0.0-2.0); EOSINOPHILS # (AUTO) 0.2 K/uL (0-0.4); EOSINOPHILS % (AUTO) 2.1 % (0.0-4.0); HEMATOCRIT 32.9 % (36-52); HEMOGLOBIN 10.1 g/dL (12.0-18.0); LYMPHOCYTES # (AUTO) 1.2 K/uL (2.0-11.5); LYMPHOCYTES % (AUTO) 16.3 % (20.5-51.1); MEAN CORPUSCULAR HEMOGLOBIN 27 pg (27-31); MEAN CORPUSCULAR HGB CONC 31 g/dL (33-37); MEAN CORPUSCULAR VOLUME 88.8 fL (80-94); MONOCYTES # (AUTO) 0.7 K/uL (0.8-1.0); MONOCYTES % (AUTO) 9.4 % (1.7-9.3); NEUTROPHILS # (AUTO) 5.3 K/uL (1.8-7.7); NEUTROPHILS % (AUTO) 71.5 % (42.2-75.2); PLATELET COUNT (AUTO) 306 K/uL (140-450); WHITE BLOOD COUNT (AUTO) 7.4 K/uL (4.8-10.8)
[2019-02-21 17:06] LABS: APPEARANCE,URINE CLEAR (CLEAR); BILIRUBIN,URINE NEGATIVE (NEGATIVE); BLOOD, URINE NEGATIVE (NEGATIVE); COLOR,URINE YELLOW (YELLOW); LEUKOCYTE ESTERASE ,URINE TRACE (NEGATIVE); NITRITE, URINE NEGATIVE (NEGATIVE); UGLUCOSE NEGATIVE (NEGATIVE)
[2019-02-21 17:07] LABS: ANION GAP 4.5 (8-16); CARBON DIOXIDE 36.3 mmol/L (21-32); CHLORIDE 102 mmol/L (98-107); CREATININE 0.6 mg/dL (0.7-1.3); GLUCOSE 99 mg/dL (74-106); POTASSIUM 3.8 mmol/L (3.5-5.1); SODIUM SERUM 139 mmol/L (136-145); UREA NITROGEN, BLOOD 13 mg/dL (7-18)
[2019-02-21 17:10] LABS: PROTHROMBIN TIME 9.9 secs (10.8-13.4)
[2019-02-21] MEDS ORDERED: NACL 0.9% 1,000 ML IV SCH (17:11)
[2019-02-21 17:15] LABS: RBC,URINE 0-5 /HPF (0-5); WBC,URINE 0-5 /HPF (0-5)
[2019-02-21] MEDS ORDERED: MORPHINE SULFATE 2 MG/ML SYR IVP PRN (17:15)
[2019-02-21] MEDS ORDERED: LORazepam 2 MG/ML VIAL IM/IVP PRN (17:15)
[2019-02-21] MEDS ORDERED: HYDROcodone/APAP 5/325 MG 1 TAB TAB PO PRN (17:15)
[2019-02-21] MEDS ORDERED: DOCUSATE SODIUM 100 MG GELCAP PO PRN (17:15)
[2019-02-21] MEDS ORDERED: ACETAMINOPHEN 325 MG TAB PO PRN (17:15)
[2019-02-21] MEDS ORDERED: ALBUTEROL SULFATE/IPRATROPIU 3 ML SOL IH PRN ×2 (17:15→19:10)
[2019-02-21] MEDS ORDERED: ONDANSETRON 4 MG/2 ML VIAL IM/IVP PRN (17:15)
[2019-02-21] MEDS ORDERED: methylPREDNISolone SS 125 MG in WATER STERILE 2 ML IV ONE (17:20)
[2019-02-21 17:21] LABS: ALBUMIN 2.3 g/dL (3.4-5.0); ASPARTATE AMINOTRANSFERASE 30 U/L (15-37); LIPASE 420 U/L (73-393); TOTAL BILIRUBIN 0.4 mg/dL (0.0-1.0)
[2019-02-21 17:43] LABS: MAGNESIUM 2.3 mg/dL (1.8-2.4); PHOSPHORUS 3.3 mg/dL (2.5-4.9); THYROID STIMULATING HORMONE 3.93 uIU/mL (0.34-3.74)
--- NOTE | 2019-02-21 18:15 | NUR ---
Patient will be admitted to care of RICHEY. Admited to TELE. Will go to room 113. Belongings list completed. Report to GEOVANY PRITCHARD.
--- NOTE | 2019-02-21 18:24 | NUR ---
RECEIVED PT FROM ED NURSE NICK. PT IS ASLEEP, ON 2L O2 NC, NO S/S OF ACUTE DISTRESS NOTED. PT IS NONVERBAL AND UNABLE TO SWALLOW. G TUBE NOTED; PER PT'S DAUGHTER, PT GETS ALL FEEDING AND MEDS THROUGH THE G-TUBE. SKIN IS INTACT. IV SITE IS ON THE R WRIST, 20 G, PATENT AND INTACT. LAST BM 02/21 IN THE ED. CALL LIGHT GIVEN WITHIN REACH, WILL CONTINUE TO MONITOR.
[2019-02-21] MEDS: ALBUTEROL SULFATE/IPRATROPIU 3 ML SOL IH SCH (19:12)
--- NOTE | 2019-02-21 19:25 | NUR ---
PT ENDORSED TO TAKE OUT WAITER IN STABLE CONDITION.
--- NOTE | 2019-02-21 19:28 | NUR ---
RCV'D PT ON 2 L NC. PT IS NOT ALERT. HHN TX GIVEN WITH NO ADVERSE REACTION. PT HAS BIPAP PRN ORDER BUT PT DOES NOT NEED BIPAP AT THIS TIME. MD LANDON AWARE. MACHO MEDINA AT BEDSIDE. NO SOB OR DISTRESS NOTED. DAUGHTER FORMINA AT BEDSIDE. WILL CONTINUE TO MONITOR.
--- NOTE | 2019-02-21 19:30 | NUR ---
Received endorsement from AM shift RN; patient A/Ox1, sleeping, unable to ambulate, aphasic. Daughter, Sofiya, in room, said patients current condition is baseline. Introduced self, updated board. No SOB or distress noted, on O2 2LPM via nasal cannula. IV site on right wrist, 20 gauge, saline locked. G-tube in place. Skin intact. Bed in the lowest position, call light within reach. Initial assessment done. Will continue to monitor.
--- NOTE | 2019-02-21 19:55 | NUR ---
Vitals taken, no distress noted.
[2019-02-21 20:00] VITALS: BP 126/51
--- NOTE | 2019-02-21 20:05 | NUR ---
Dr. Ramos at bedside consulting patient and daughter Sofiya.
[2019-02-21] MEDS: NYSTATIN 500 MU/5 ML UDC PO SCH (20:28)
[2019-02-21] MEDS ORDERED: LACTULOSE 20 GM/30 ML UDC GT SCH (20:30)
[2019-02-21] MEDS ORDERED: cefTRIAXone 1,000 MG VIAL ONE (20:33)
[2019-02-21] MEDS ORDERED: DEXT 5% /NACL 0.9% 1,000 ML IV SCH (21:00)
[2019-02-21] MEDS ORDERED: LORazepam 2 MG/ML VIAL IVP PRN (21:05)
--- NOTE | 2019-02-21 21:35 | NUR ---
Patient noted with wetness in diaper; patient cleaned, linens and chux changed; tolerated well.
--- NOTE | 2019-02-21 21:50 | NUR ---
Due meds given, tolerated well. No residual noted in g-tube.
[2019-02-21] MEDS ORDERED: levETIRAcetam 100 MG/ML ORASYR GT SCH (23:00)
[2019-02-21] MEDS ORDERED: ACETAMINOPHEN 325 MG TAB GT PRN (23:14)
[2019-02-21] MEDS ORDERED: DIGOXIN 0.125 MG/2.5 ML UDC GT SCH (23:15)
[2019-02-21] MEDS ORDERED: DOCUSATE 100 MG/10 ML UDC GT PRN (23:15)
[2019-02-21] MEDS ORDERED: HYDROcodone/APAP 5/325 MG 1 TAB TAB GT PRN (23:15)
[2019-02-21] MEDS ORDERED: FINASTERIDE 5 MG TAB GT SCH (23:30)
--- NOTE | 2019-02-21 23:55 | NUR ---
Vitals taken, no distress noted. Patient still asleep.
[2019-02-22] VITALS: BP 132/49
--- NOTE | 2019-02-22 01:48 | NUR ---
Rounds done; no SOB or distress noted.
[2019-02-22] MEDS: methylPREDNISolone SS 125 MG/2 ML VIAL IVP SCH ×4 (02:05→18:49)
[2019-02-22 04:00] VITALS: BP 132/51
--- NOTE | 2019-02-22 04:00 | NUR ---
Vitals taken, no distress noted. Patient asleep, visible chest rise and fall noted.
[2019-02-22 06:21] LABS: ANION GAP 7.3 (8-16); CARBON DIOXIDE 35.3 mmol/L (21-32); CHLORIDE 106 mmol/L (98-107); CREATININE 0.8 mg/dL (0.7-1.3); GLUCOSE 285 mg/dL (74-106); POTASSIUM 4.6 mmol/L (3.5-5.1); SODIUM SERUM 144 mmol/L (136-145); UREA NITROGEN, BLOOD 10 mg/dL (7-18)
[2019-02-22 06:38] LABS: CHOL/HDL RATIO 4.1 (1-4.5); MAGNESIUM 2.4 mg/dL (1.8-2.4); PHOSPHORUS 3.1 mg/dL (2.5-4.9)
[2019-02-22 07:16] LABS: BASOPHILS % (AUTO) 0.2 % (0.0-2.0); LYMPHOCYTES # (AUTO) 0.2 K/uL (2.0-11.5); LYMPHOCYTES % (AUTO) 3.7 % (20.5-51.1); MEAN CORPUSCULAR HEMOGLOBIN 28 pg (27-31); MEAN CORPUSCULAR HGB CONC 31 g/dL (33-37); MEAN CORPUSCULAR VOLUME 90.8 fL (80-94); MONOCYTES % (AUTO) 0.4 % (1.7-9.3); NEUTROPHILS # (AUTO) 6.2 K/uL (1.8-7.7); NEUTROPHILS % (AUTO) 95.7 % (42.2-75.2); PLATELET COUNT (AUTO) 318 K/uL (140-450); RED BLOOD CELL COUNT(AUTO) 3.97 MIL/uL (4.20-6.10); RED CELL DISTRIBUTION WIDTH 17.1 % (11.6-13.7); WHITE BLOOD COUNT (AUTO) 6.4 K/uL (4.8-10.8)
[2019-02-22] MEDS: ALBUTEROL SULFATE/IPRATROPIU 3 ML SOL IH SCH ×3 (07:23→19:38)
--- NOTE | 2019-02-22 07:23 | NUR ---
ENDORSED PATIENT TO DAY SHIFT NURSE. PATIENT IS STABLE AT THIS TIME.
--- NOTE | 2019-02-22 07:25 | NUR ---
RECEIVED REPORT FROM ETHYLBENZENE CRACKING SUPERVISOR NURSE. PT ASLEEP LYING IN BED, UNABLE TO ASSESS ORIENTATION LEVEL AT THIS TIME. RESPIRATIONS EVEN AND UNLABORED ON O2 1L VIA N/C. PT ON COMIC BOOK DESIGNER. BOWEL SOUNDS ACTIVE, LBM 02/21. GTUBE IN PLACE, NO RESIDUALS AT THIS TIME AND FLUSHING WELL, DRESSING CLEAN, DRY AND INTACT. IV ON RT WRIST 20 GA RUNNING IVF PER ORDER, DRESSING CLEAN, DRY AND INTACT. SKIN COLOR IS APPROPRIATE TO ETHNICITY, WARM TO TOUCH, SKIN IS INTACT. NO EDEMA NOTED. WILL REVIEW PLAN OF CARE WHEN PT IS AWAKE. WILL CONTINUE TO MONITOR.
[2019-02-22 08:00] VITALS: BP 129/63
--- NOTE | 2019-02-22 08:15 | NUR ---
FNS notified of tube feeding order for Osmolite 1.5 @ 20ml/hr. Per Radha, she will assess pt & will notify primary nurse of dietary recommendation. Pt currently resting in bed, nonverbal, responsive to verbal & tactile stimuli. No signs of distress. GT intact & patent, no feeding at this time. Right hand IV intact with ongoing 1/2 NS @ 60ml/hr. Call light within reach.
[2019-02-22] MEDS: METOPROLOL 25 MG TAB GT SCH ×3 (08:20→21:06)
[2019-02-22] MEDS: FINASTERIDE 5 MG TAB GT SCH ×2 (08:20→08:36)
[2019-02-22] MEDS: DIGOXIN 0.125 MG/2.5 ML UDC GT SCH (08:21)
[2019-02-22] MEDS: levETIRAcetam 100 MG/ML ORASYR GT SCH ×2 (08:22→21:07)
[2019-02-22] MEDS: NYSTATIN 500 MU/5 ML UDC PO SCH ×4 (08:22→21:07)
[2019-02-22] MEDS: DILTIAZEM 30 MG TAB GT SCH ×3 (08:22→21:06)
--- NOTE | 2019-02-22 08:46 | NUR ---
PER D[facility] FROM RADIOLOGY, PT/FAMILY NEEDS TO SIGN CONSENT FOR CT CHEST WITH CONTRAST PROCEDURE, AND REQUIRES IV 20 GA.
--- NOTE | 2019-02-22 09:16 | NUR ---
LEFT VOICEMAIL FOR LESLEE REGARDING CONSENT FOR PROCEDURE TO BE DONE TODAY.
--- NOTE | 2019-02-22 09:22 | NUR ---
PATIENT HAS BEEN SCREENED AND CATEGORIZED HIGH NUTRITION RISK. PATIENT WILL BE SEEN WITHIN 1-2 DAYS OF ADMISSION. 02/22/19-02/23/[address]
[2019-02-22] MEDS ORDERED: LACTOBACILLUS RHAMNOSUS GG 1 EACH CAP PO SCH (09:30)
[2019-02-22] MEDS ORDERED: LACTULOSE 20 GM/30 ML UDC GT SCH (09:30)
[2019-02-22] MEDS ORDERED: AZITHROMYCIN 250 MG TAB PO SCH (09:30)
--- NOTE | 2019-02-22 09:30 | NUR ---
PT GIVEN ICE PER REQUEST. NO SIGNS OF DISTRESS AND NO C/O PAIN AT THIS TIME. Addendum: 02/22/19 at 1243 by Sarai Jacobs RN CLARIFICATION: WRONG PATIENT.
--- NOTE | 2019-02-22 10:55 | NUR ---
SPOKE WITH PT'S SON ROSHNI AUGUST TO OBTAIN CONSENT FOR CT CHEST WITH CONTRAST PROCEDURE TO BE DONE TODAY. CONSENT VERIFIED BY 2 NURSES.
[2019-02-22] MEDS: NACL 0.45% 1,000 ML IV SCH (11:11)
[2019-02-22 12:00] VITALS: BP 116/44
--- NOTE | 2019-02-22 12:15 | NUR ---
INSERTED IV TO RIGHT FA 20 GA, BLOOD RETURN NOTED, LINE FLUSHING WELL. PT TOLERATED WELL.
--- NOTE | 2019-02-22 12:55 | NUR ---
PT TRANSPORTED TO RADIOLOGY BY [facility]. PT SHOWS NO SIGNS OF DISTRESS AT THIS TIME.
[2019-02-22] MEDS ORDERED: FUROSEMIDE 20 MG/2 ML VIAL IVP SCH (15:30)
--- NOTE | 2019-02-22 15:33 | NUR ---
02/22/19 RD INITIAL ASSESSMENT COMPLETED PLEASE REFER TO NUTRITION ASSESSMENT UNDER CARE ACTIVITY FOR ESTIMATED NUTRITIONAL NEEDS. CONSIDER INCREASING OSMOLITE RATE TO 50 ML/HR X 24 HRS -THIS WILL PROVIDE 1,764 KCAL, 74 G PROTEIN AND 927 ML OF FREE WATER. WHICH MEETS 100% OF ESTIMATED NEEDS. 2. FREE WATER FLUSH OF [address] TO FOLLOW-UP 2-3 DAYS, HIGH RISK JANICE LABOY RD
[2019-02-22 16:00] VITALS: BP 119/56
[2019-02-22] MEDS: RIVAROXABAN 10 MG TAB GT SCH (16:13)
--- NOTE | 2019-02-22 18:00 | NUR ---
Pt resting in bed, awake, respirations even & nonlabored. SaO2 96-97% on O2 @ 3Lpm via n/c. O2 titrated down to 2Lpm with SaO2 94-96%. Pt HOB @ 30�. GT intact with ongoing feeding. Right forearm IV intact with ongoing IVF. Call light within reach. Will cont to monitor.
--- NOTE | 2019-02-22 19:10 | NUR ---
RECEIVED BEDSIDE REPORT FROM DAY SHIFT NURSE. PATIENT IS AWAKE, APHASIC, AND COOPERATIVE. RESPIRATION EVEN UNLABORED ON 2L NC. NO DISTRESS NOTED. SKIN IS WARM AND DRY. IV PATENT AND INTACT. FAMILY AT BEDSIDE. PLAN OF CARE WAS DISCUSSED. ALL SAFETY MEASURES IN PLACE. PATIENT PLACE IN ISOLATION FOR CONTACT PRECAUTION MRSA NARES. BED IS AT LOW POSITION. BED ALARM ON. CALL LIGHT WITHIN REACH WILL CONTINUE TO MONITOR.
--- NOTE | 2019-02-22 19:10 | NUR ---
ENDORESED PT TO MONUMENT MASON NURSE. PT HAS NO SIGNS OF DISTRESS AT THIS TIME.
--- NOTE | 2019-02-22 19:10 | NUR ---
PATIENT HAS A G-TUBE RUNNING AT 50ML/HR.
--- NOTE | 2019-02-22 19:20 | NUR ---
ADVANCED DIRECTIVES/DPOA: Dyllan Robert came in to see pt with Advance Directives/DPOA documents. Copy made & filed in pt's chart. Original documents returned to son.
[2019-02-22 20:00] VITALS: BP 140/65
--- NOTE | 2019-02-22 20:00 | NUR ---
INITIAL ASSESSMENT DONE. VITALS WERE TAKEN. CHECKED G-TUBE RESIDUAL. OBTAINED 0CC. NO DISTRESS NOTED. WILL CONTINUE TO MONITOR.
--- NOTE | 2019-02-22 21:00 | NUR ---
ALL SCHEDULED MEDS WERE GIVEN AND TOLERATED THEM WELL. WILL CONTINUE TO MONITOR
--- NOTE | 2019-02-22 22:30 | NUR ---
CHECKED PATIENT. PATIENT SLEEPING RESPIRATION EVEN UNLABORED ON 2L NC. NO DISTRESS NOTED. WILL CONTINUE TO MONITOR.
[2019-02-23] VITALS: BP 118/60
--- NOTE | 2019-02-23 | NUR ---
VITALS WERE TAKEN. PATIENT CONDITION STABLE. NO DISTRESS NOTED. WILL CONTINUE TO MONITOR.
--- NOTE | 2019-02-23 02:00 | NUR ---
CHECKED PATIENT. PATIENT SLEEPING RESPIRATION EVEN UNLABORED ON 2L NC. NO DISTRESS NOTED. WILL CONTINUE TO MONITOR.
[2019-02-23 04:00] VITALS: BP 130/47
--- NOTE | 2019-02-23 04:05 | NUR ---
PER PIPE ROLLER PATIENT IS HAVING A SEIZURE FOR 35SECS. CHECKED PATIENT. PATIENT IS OKAY WITH NO DISTRESS NOTED. CHECKED TELE MONITOR FOR ANY SIGNS OF SEIZURE ACTIVITIES NO NOTED. WILL CONTINUE TO MONITOR.
[2019-02-23] MEDS: NACL 0.45% 1,000 ML IV SCH ×2 (04:21→17:07)
[2019-02-23] MEDS: methylPREDNISolone SS 40 MG/ML VIAL IVP SCH ×2 (05:48→17:07)
--- NOTE | 2019-02-23 06:00 | NUR ---
CHECKED PATIENT. PATIENT SLEEPING NO DISTRESS NOTED. WILL CONTINUE TO MONITOR.
[2019-02-23 06:54] LABS: BASOPHILS % (AUTO) 0.2 % (0.0-2.0); HEMATOCRIT 31.2 % (36-52); HEMOGLOBIN 9.6 g/dL (12.0-18.0); LYMPHOCYTES # (AUTO) 0.5 K/uL (2.0-11.5); LYMPHOCYTES % (AUTO) 5.7 % (20.5-51.1); MEAN CORPUSCULAR HEMOGLOBIN 27 pg (27-31); MEAN CORPUSCULAR HGB CONC 31 g/dL (33-37); MEAN CORPUSCULAR VOLUME 89.5 fL (80-94); MONOCYTES # (AUTO) 0.7 K/uL (0.8-1.0); MONOCYTES % (AUTO) 7.2 % (1.7-9.3); NEUTROPHILS # (AUTO) 7.9 K/uL (1.8-7.7); NEUTROPHILS % (AUTO) 86.9 % (42.2-75.2); PLATELET COUNT (AUTO) 311 K/uL (140-450); RED BLOOD CELL COUNT(AUTO) 3.49 MIL/uL (4.20-6.10); RED CELL DISTRIBUTION WIDTH 17.5 % (11.6-13.7); WHITE BLOOD COUNT (AUTO) 9.1 K/uL (4.8-10.8)
[2019-02-23 07:04] LABS: MAGNESIUM 2.2 mg/dL (1.8-2.4); PHOSPHORUS 2.1 mg/dL (2.5-4.9)
[2019-02-23 07:12] LABS: CREATININE 0.7 mg/dL (0.7-1.3); GLUCOSE 241 mg/dL (74-106); UREA NITROGEN, BLOOD 18 mg/dL (7-18)
[2019-02-23 07:16] LABS: CARBON DIOXIDE 35.4 mmol/L (21-32); CHLORIDE 104 mmol/L (98-107); POTASSIUM 4.1 mmol/L (3.5-5.1); SODIUM SERUM 142 mmol/L (136-145)
[2019-02-23] MEDS: ALBUTEROL SULFATE/IPRATROPIU 3 ML SOL IH SCH ×3 (07:19→19:52)
--- NOTE | 2019-02-23 07:28 | NUR ---
ENDORSED PATIENT TO DAY SHIFT NURSE. PATIENT IS STABLE AT THIS TIME.
[2019-02-23 07:31] LABS: ANION GAP 6.7 (8-16)
--- NOTE | 2019-02-23 07:40 | NUR ---
PATIENT WAS SLEEPING COMFORTABLY, EASILY AROUSABLE BY NAME. RESPIRATION EVEN, UNLABOR ON 2L NC. SKIN DRY AND WARM. IV PATENT AND INTACT. FLACC 0. GTUBE CLEAR AND DRY. PLAN OF CARE WAS DISCUSSED WITH PATIENT. BED AT LOW POSITION, SIDE RAILS UP. CALL LIGHT WITHIN REACH
[2019-02-23 08:00] VITALS: BP 134/57
[2019-02-23] MEDS: DILTIAZEM 30 MG TAB GT SCH ×2 (09:00→21:14)
[2019-02-23 09:06] LABS: TRANSFERRIN 290 mg/dL (200-370)
[2019-02-23] MEDS: DIGOXIN 0.125 MG/2.5 ML UDC GT SCH (09:27)
[2019-02-23] MEDS: levETIRAcetam 100 MG/ML ORASYR GT SCH ×2 (09:27→21:15)
[2019-02-23] MEDS: AZITHROMYCIN 250 MG TAB PO SCH (09:28)
[2019-02-23] MEDS: LACTOBACILLUS RHAMNOSUS GG 1 EACH CAP PO SCH (09:28)
[2019-02-23] MEDS: NYSTATIN 500 MU/5 ML UDC PO SCH ×4 (09:29→21:16)
[2019-02-23] MEDS: FINASTERIDE 5 MG TAB GT SCH (09:29)
[2019-02-23] MEDS: METOPROLOL 25 MG TAB GT SCH ×2 (09:29→21:15)
[2019-02-23] MEDS ORDERED: LACTULOSE 20 GM/30 ML UDC GT SCH (09:30)
[2019-02-23] MEDS ORDERED: SODIUM PHOS / POTASSIUM PHOS 1 PKT PDR GT SCH (09:30)
--- NOTE | 2019-02-23 10:04 | NUR ---
PATIENT WAS AWAKE, RESPONSIVE TO NAME. RESPIRATION EVEN, UNLABOR ON 2L. RESIDUAL CHECK AT 0. PATIENT TOLERATED FEEDING WELL. PATIENT WAS REPOSITIONED, PERINEAL CARE WAS GIVEN. OCCULT BLOOD WAS COLLECTED TO SENT TO LAB PER ORDER
--- NOTE | 2019-02-23 11:07 | NUR ---
REMOVED 2 LITER NASAL CANULA. PT SATURATING 98% ON ROOM AIR.
--- NOTE | 2019-02-23 11:55 | NUR ---
PATIENT WAS AWAKE, EYES OPENING SPONTANEOUSLY. RESPIRATION EVEN, UNLABOR ON 2L NC. FLACC 0. NO DISTRESS NOTED AT THIS TIME
--- NOTE | 2019-02-23 13:28 | NUR ---
CALLED GENARO FROM [facility] AT [phone], PROVIDED HER WITH UPDATES ON PATIENT'S CONDITION AND MADE HER AWARE THAT PATIENT IS BEING EVALUATED FOR HOME 02.
--- NOTE | 2019-02-23 13:30 | NUR ---
NEW TUBE FEEDING WAS CHANGED, RESIDUAL CHECK AT 5ML. PATIENT TOLERATED FEEDING WELL. NO DISTRESS NOTED AT THIS TIME. FAMILY AT BEDSIDE
[2019-02-23 16:00] VITALS: BP 127/88
--- NOTE | 2019-02-23 16:00 | NUR ---
PATIENT WAS AWAKE. RESPIRATION EVEN, UNLABOR ON ROOM AIR. FLACC 0. NO DISTRESS NOTED AT THIS TIME. FAMILY AT BEDSIDE
[2019-02-23] MEDS: RIVAROXABAN 10 MG TAB GT SCH (17:18)
[2019-02-23] MEDS ORDERED: BOWEL EVACUANT DRINK 4,000 ML PDS GT ONE (18:00)
--- NOTE | 2019-02-23 18:03 | NUR ---
CONSENT FOR COLONOSCOPY AND EGD WERE OBTAINED VIA TELEPHONE WITH SON AUTHOR AUGUST, WITNESSED BY 2 RN
[2019-02-23] MEDS ORDERED: MAGNESIUM CITRATE 300 ML BTL PO SCH (19:00)
--- NOTE | 2019-02-23 19:23 | NUR ---
ENDORSEMENT GIVEN TO ICE HANDLER NURSE. PATIENT IS STABLE AT THIS TIME
--- NOTE | 2019-02-23 19:24 | NUR ---
RECD. RESTING IN BED, AWAKE, ALERT, APHASIC. IV OF 1/S NS INFUSING AT 40 ML/HR. GT FEEDING OF OSMOLITE 1.2 INFUSING AT 50 ML/HR. RESIDUAL - 2 ML, TOLERATING FEEDING WELL. ON BILATERAL LEG SEQUENTIALS. SAFETY MEASURES ENFORCED. FAMILY AT THE BEDSIDE. PLAN OF CARE DISCUSSED WITH PATIENT, NEEDS REINFORCEMENT. FAMILY VERBALIZED UNDERSTANDING. NO APPEARANCE OF PAIN NOTED 0/10.
--- NOTE | 2019-02-23 20:00 | NUR ---
Patient's Plan of Care was discussed and reviewed with HARMAN: MANPREET
--- NOTE | 2019-02-23 20:01 | NUR ---
RECEIVED PATIENT ON ROM AIR, PULSE OX SAT 91%. FAMILY AT BEDSIDE. SCHEDULED BREATHING TREATMENT ADMINISTERED. TOLERATED TX WELL WITHOUT ADVERSE SIDE EFFECTS. NO RESPIRATORY DISTRESS NOTED AT THIS TIME. WILL CONTINUE TO MONITOR.
--- NOTE | 2019-02-23 22:00 | NUR ---
ON GOLYTELY, CLEANSED WITH EQUINE INTERNSHIP. PATIENT NOT YET CLEAR. WILL CONTINUE GIVING BOWEL PREP.
[2019-02-24] VITALS: BP 134/68
--- NOTE | 2019-02-24 | NUR ---
CLEANSED AND MADE COMFORTABLE, BM NOT YET CLEAR.
--- NOTE | 2019-02-24 04:00 | NUR ---
REPOSITIONED, CLEANSED, BM NOT YET CLEAR.
[2019-02-24] MEDS ORDERED: BOWEL EVACUANT DRINK 4,000 ML PDS GT ONE (06:00)
[2019-02-24 06:21] LABS: FOLIC ACID > 20.00 ng/mL (>3.0)
[2019-02-24] MEDS: methylPREDNISolone SS 40 MG/ML VIAL IVP SCH ×2 (06:30→17:53)
[2019-02-24] MEDS: ALBUTEROL SULFATE/IPRATROPIU 3 ML SOL IH SCH ×3 (06:57→19:30)
[2019-02-24 07:00] LABS: CREATININE 0.6 mg/dL (0.7-1.3); GLUCOSE 264 mg/dL (74-106); UREA NITROGEN, BLOOD 18 mg/dL (7-18)
[2019-02-24] MEDS ORDERED: MAGNESIUM CITRATE 300 ML BTL PO SCH (07:00)
[2019-02-24 07:10] LABS: ANION GAP 6.9 (8-16); CHLORIDE 101 mmol/L (98-107); POTASSIUM 3.9 mmol/L (3.5-5.1); SODIUM SERUM 139 mmol/L (136-145)
--- NOTE | 2019-02-24 07:10 | NUR ---
MEDICATED WITH CITROMA ORDERED. CONDITION REMAIN STABLE. WILL ENDORSE TO AM NURSE FOR CONTINUITY OF CARE.
[2019-02-24 07:15] LABS: MAGNESIUM 2.4 mg/dL (1.8-2.4); PHOSPHORUS 2.1 mg/dL (2.5-4.9)
--- NOTE | 2019-02-24 07:30 | NUR ---
RECEIVED BEDSIDE REPORT FROM MACHO CASE. PT STABLE, AWAKE, ALERT AND ORIENTED X1. NO SIGNS OF DISTRESS NOTED. NO REDNESS, SWELLING, OR INFLAMMATION NOTED ON IV SITE. ON TUBE FEEDING AT 50ML/HR. CALL TAYLOR WITHIN REACH. BED IN LOWEST POSITION, BED ALARM ON. SAFETY MEASURES IN PLACE. PLAN OF CARE REVIEWED.
[2019-02-24 08:00] VITALS: BP 116/56
[2019-02-24 08:21] LABS: HEMATOCRIT 29.6 % (36-52); HEMOGLOBIN 9.3 g/dL (12.0-18.0); LYMPHOCYTES # (AUTO) 0.5 K/uL (2.0-11.5); LYMPHOCYTES % (AUTO) 7.3 % (20.5-51.1); MEAN CORPUSCULAR HEMOGLOBIN 28 pg (27-31); MEAN CORPUSCULAR HGB CONC 31 g/dL (33-37); MEAN CORPUSCULAR VOLUME 88.2 fL (80-94); MONOCYTES # (AUTO) 0.5 K/uL (0.8-1.0); MONOCYTES % (AUTO) 7.9 % (1.7-9.3); NEUTROPHILS # (AUTO) 5.5 K/uL (1.8-7.7); NEUTROPHILS % (AUTO) 84.8 % (42.2-75.2); PLATELET COUNT (AUTO) 287 K/uL (140-450); RED BLOOD CELL COUNT(AUTO) 3.36 MIL/uL (4.20-6.10); RED CELL DISTRIBUTION WIDTH 17.2 % (11.6-13.7); WHITE BLOOD COUNT (AUTO) 6.4 K/uL (4.8-10.8)
--- NOTE | 2019-02-24 09:05 | NUR ---
TUBE FEEDING STOPPED PER DR REYES ORDER.
[2019-02-24] MEDS: DILTIAZEM 30 MG TAB GT SCH ×2 (09:56→20:12)
[2019-02-24] MEDS: AZITHROMYCIN 250 MG TAB PO SCH (09:57)
[2019-02-24] MEDS: METOPROLOL 25 MG TAB GT SCH ×2 (09:57→20:14)
[2019-02-24] MEDS: LACTOBACILLUS RHAMNOSUS GG 1 EACH CAP PO SCH (09:57)
[2019-02-24] MEDS: FINASTERIDE 5 MG TAB GT SCH (09:57)
[2019-02-24] MEDS: levETIRAcetam 100 MG/ML ORASYR GT SCH ×2 (09:58→20:13)
[2019-02-24] MEDS: DIGOXIN 0.125 MG/2.5 ML UDC GT SCH (09:58)
[2019-02-24] MEDS: NYSTATIN 500 MU/5 ML UDC PO SCH ×4 (09:58→20:14)
--- NOTE | 2019-02-24 09:58 | NUR ---
ADMINISTERED SCHEDULED MEDICATIONS, PT TOLERATED WELL. NO OTHER NEEDS AT THIS TIME. Addendum: 02/24/19 at 1417 by Min Bah RN VS RECHECKED, BP 142/77 HR 90.
--- NOTE | 2019-02-24 10:30 | NUR ---
PT HAD BOWEL MOVEMENT, LINENS AND GOWN CHANGED.
[2019-02-24] MEDS ORDERED: BOWEL EVACUANT DRINK 4,000 ML PDS PO SCH (11:00)
[2019-02-24] MEDS ORDERED: LACTULOSE 20 GM/30 ML UDC GT SCH (11:00)
[2019-02-24 12:29] LABS: FERRITIN 21 ng/mL (30-400)
--- NOTE | 2019-02-24 12:49 | NUR ---
ADMINISTERED SCHEDULED MEDICATIONS, PT TOLERATED WELL. NO OTHER NEEDS AT THIS TIME. FAMILY AT THE BEDSIDE. Addendum: 02/24/19 at 1250 by Min Bah RN NO RESIDUAL NOTED FROM G-TUBE.
[2019-02-24] MEDS ORDERED: fentaNYL 0.05 MG/ML VIAL ONE (13:53)
[2019-02-24] MEDS ORDERED: diphenhydrAMINE 50 MG/ML VIAL ONE (13:54)
[2019-02-24] MEDS ORDERED: MIDAZOLAM 2 MG/2 ML VIAL ONE (13:54)
--- NOTE | 2019-02-24 14:15 | NUR ---
PT'S DAUGHTER IN LAW ALEAH AT THE BEDSIDE. MADE ALEAH AWARE THAT PATIENT IS GOING TO HAVE EGD TODAY.
--- NOTE | 2019-02-24 15:45 | NUR ---
PT TAKEN TO THE OR FOR EGD AND COLONOSCOPY.
[2019-02-24] MEDS: MIDAZOLAM 2 MG/2 ML VIAL IVP ONE ×2 (15:46→18:04)
[2019-02-24] MEDS: fentaNYL 0.05 MG/ML VIAL IVP ONE ×2 (15:47→18:04)
[2019-02-24] MEDS ORDERED: CALCIUM CARBONATE 500 MG TAB GT SCH (16:30)
[2019-02-24] MEDS ORDERED: SODIUM PHOS / POTASSIUM PHOS 1 PKT PDR GT SCH (16:30)
[2019-02-24 17:30] VITALS: BP 119/60
--- NOTE | 2019-02-24 17:30 | NUR ---
PT CAME BACK FROM OR. VITAL SIGNS TAKEN, PT STABLE. FAMILY AT THE BEDSIDE.
--- NOTE | 2019-02-24 19:25 | NUR ---
ENDORSED PT TO MACHO CRYSTAL FOR CONTINUITY OF CARE. PT STABLE.
--- NOTE | 2019-02-24 19:25 | NUR ---
RECIEVED PT AWAKE , ALERT . BUT NON VERBAL - LIMITED ORIENTATION TO STIMULI AND SORROUNDING DUE TO APHASIA , NID DISTRESS ,ON RA 02 SAT 92 , NPO EXCEPT MEDS , IV SITE INTACT AND PATENT ON LEFT FOREARM , INCONTINENT , SIDERAILS UP X2 , BED IN LOW POSITION , CALL LIGHT WITHIN REACH ,FOR CT ABD/ PELVIS WITH ,WITHOUT CONTRAST TODAY - FOR CONSENT , WILL CONTINUE TO MONITOR,
[2019-02-24] MEDS ORDERED: cefTRIAXone 1,000 MG VIAL ONE (20:13)
--- NOTE | 2019-02-24 22:00 | NUR ---
IV CANNULA RE INSERTION FOR CT SCAN OF ABD. /PELVIS WITH CONTRAST ACCESS - FAILED TO STABLISH IV ACCESS , REFERRED TO CHARGE NURSE FOR IV CANNULA RE INSERTION.
[2019-02-25] VITALS: BP 132/60
--- NOTE | 2019-02-25 | NUR ---
PT AWAKE , ALERT , NID , ON RA , O2 SAT 100% , REINSERTION OF IV CANNULLA DONE C/O CHARGE NURSE , FAILED TO STABLISH IV ACCESS FOR CT SCAN PROCEDURE, WILL CONTINUE TO MONITOR. MAINTAIN NPO EXCEPT MEDS.
[2019-02-25] MEDS: NACL 0.45% 1,000 ML IV SCH (01:46)
--- NOTE | 2019-02-25 02:00 | NUR ---
REINSERTION OF IV CANNULA FOR CT PROCEDURE ACCESS DONE BY ER NURSES BUT FAILED. THE RADIOLOGIST INFORMED THAT THE RNS' FROM THE ER TRIED INSERTION OF IV CANNULA SO MANY TIMES BUT STILL FAILED TO STABLISH IV ACCESS FOR CT PROCEDURE, WILL CONTINUE TO MONITOR.
--- NOTE | 2019-02-25 04:00 | NUR ---
MADE ROUNDS , NO SIGNS OF DISTRESS NOTED AT THIS TIME. THE ADBL./ PELVIS , WITH/ W/O CONTRAST IS PENDING DUE TO NO IV ACCESS FOR THE PROCEDURE. INFORM CHARGE NURSE AND HEEL BLACKER. WILL CONTINUE TO MONITOR .
--- NOTE | 2019-02-25 06:00 | NUR ---
INFORM RADHA FOR SO MANY TIMES FAILURE OF IV REINSERTION , STILL NO IV ACCESS FOR CT PROCEDURE, RADIOLOGIST AWARE ABOUT THE SITUATION . MAINTAIN NPO EXCEPT MEDS. WILL CONTINUE TO MONITOR.
[2019-02-25] MEDS: methylPREDNISolone SS 40 MG/ML VIAL IVP SCH ×2 (06:18→17:03)
[2019-02-25] MEDS: ALBUTEROL SULFATE/IPRATROPIU 3 ML SOL IH SCH ×3 (07:26→18:57)
--- NOTE | 2019-02-25 07:30 | NUR ---
ENDORSED TO AM SHIFT NURSE , NO RESP. DISTRESS NOTED FOR THE WHOLE SHIFT , LATEST O2 SAT. 100%,STILL FOR ABDL./PELVIS CT SCAN .
--- NOTE | 2019-02-25 07:30 | NUR ---
RECEIVED BEDSIDE REPORT FROM MACHO CRYSTAL. PT STABLE, AWAKE, ALERT AND ORIENTED X1. NO SIGNS OF DISTRESS NOTED. NO REDNESS, SWELLING, OR INFLAMMATION NOTED ON IV SITE. PT NPO AT THIS TIME, TUBE FEEDING HELD. CALL TAYLOR WITHIN REACH. BED IN LOWEST POSITION, BED ALARM ON. SAFETY MEASURES IN PLACE. PLAN OF CARE REVIEWED.
[2019-02-25 07:31] LABS: MAGNESIUM 2.2 mg/dL (1.8-2.4); PHOSPHORUS 3.2 mg/dL (2.5-4.9)
[2019-02-25 07:57] LABS: HEMATOCRIT 32.9 % (36-52); HEMOGLOBIN 10.1 g/dL (12.0-18.0); LYMPHOCYTES # (AUTO) 0.3 K/uL (2.0-11.5); LYMPHOCYTES % (AUTO) 6.5 % (20.5-51.1); MEAN CORPUSCULAR HEMOGLOBIN 27 pg (27-31); MEAN CORPUSCULAR HGB CONC 31 g/dL (33-37); MONOCYTES # (AUTO) 0.3 K/uL (0.8-1.0); MONOCYTES % (AUTO) 5.1 % (1.7-9.3); NEUTROPHILS # (AUTO) 4.7 K/uL (1.8-7.7); NEUTROPHILS % (AUTO) 88.4 % (42.2-75.2); PLATELET COUNT (AUTO) 273 K/uL (140-450); RED BLOOD CELL COUNT(AUTO) 3.74 MIL/uL (4.20-6.10); WHITE BLOOD COUNT (AUTO) 5.3 K/uL (4.8-10.8)
[2019-02-25 08:00] VITALS: BP 156/63
[2019-02-25 08:07] LABS: CHLORIDE 102 mmol/L (98-107); CREATININE 0.7 mg/dL (0.7-1.3); GLUCOSE 165 mg/dL (74-106); SODIUM SERUM 138 mmol/L (136-145)
--- NOTE | 2019-02-25 08:45 | NUR ---
NEW ORDER TO TRANSFER TO HIGHER LEVEL OF CARE- TO [facility] FOR FURTHER GI MASS WORKUPS. CALLED [facility] AND LEFT MESSAGE TO GENARO [phone] FOR AUTHORIZATION.
[2019-02-25] MEDS: METOPROLOL 25 MG TAB GT SCH ×2 (09:00→20:26)
[2019-02-25] MEDS: DILTIAZEM 30 MG TAB GT SCH ×2 (09:00→20:26)
--- NOTE | 2019-02-25 09:10 | NUR ---
GENARO RIVER PROM[facility] CALLED BACK AND NOTIFIED OF NEW ORDER TO TRANSFER HIGHER LEVEL OF CARE, NEEDS MORE MEDICAL INFORMATION ON THE URGENGY TO TRANSFER, WILL CONTACT DR PEACOCK.
[2019-02-25] MEDS: FINASTERIDE 5 MG TAB GT SCH (09:43)
[2019-02-25] MEDS: LACTOBACILLUS RHAMNOSUS GG 1 EACH CAP PO SCH (09:44)
[2019-02-25] MEDS: NYSTATIN 500 MU/5 ML UDC PO SCH ×4 (09:44→20:24)
[2019-02-25] MEDS: levETIRAcetam 100 MG/ML ORASYR GT SCH ×2 (09:44→20:25)
[2019-02-25] MEDS: DIGOXIN 0.125 MG/2.5 ML UDC GT SCH (09:45)
[2019-02-25] MEDS: AZITHROMYCIN 250 MG TAB PO SCH (09:45)
[2019-02-25 09:51] LABS: UREA NITROGEN, BLOOD 16 mg/dL (7-18)
--- NOTE | 2019-02-25 09:55 | NUR ---
CALLED AND SPOKE WITH GENARO [phone], NOTIFIED HER THE URGENCY TO TRANSFER TO [facility] FAXED TO [phone]. PROVIDED GENARO DIRECT LINE OF DR GARVIN IF NEEDED TO VERIFY MORE INFORMATION [phone].
--- NOTE | 2019-02-25 09:56 | NUR ---
DR PAULINO AT THE BEDSIDE. NO RESIDUAL NOTED FROM THE G-TUBE. VS CHECKED. BP 124/55, HR 91. HELD SCHEDULED CARDIZEM AND METOPROLOL PER PARAMETERS, ADMINISTERED ALL OTHER SCHEDULED MEDICATIONS. TUBE FEEDING STILL HELD. PT TOLERATED WELL. NO OTHER NEEDS AT THIS TIME.
--- NOTE | 2019-02-25 10:45 | NUR ---
CALLED [facility] [phone] TRANSFER CENTER SPOKE TO [place] [facility], ALL CLINICALS FAXED TO [phone],
--- NOTE | 2019-02-25 10:51 | NUR ---
PT TAKEN TO RADIOLOGY FOR CT OF THE ABDOMEN AND PELVIS WITH AND WITHOUT CONTRAST.
--- NOTE | 2019-02-25 11:05 | NUR ---
INFORMED BY DHIRAJ FROM RADIOLOGY THAT PT'S IV WAS LEAKING DURING PROCEDURE. PT IS COMING BACK TO THE UNIT. WILL INSERT NEW IV.
--- NOTE | 2019-02-25 11:29 | NUR ---
GENARO RIVER FROM [facility] CALLED [phone], SHE SAID THAT THEIR BLOW MOLD OPERATOR DEJAH ORTIZ DID NOT AUTHORIZE TRANSFER TO HIGHER LEVEL AND SHE SAID THAT THEY WILL DO THIS OUTPATIENT CONSULT . DEJAH ORTIZ PHONE NUMBER IS [phone] GARVIN [phone] AND AWARE THAT INSURANCE DECLINE TRANSFER.
--- NOTE | 2019-02-25 12:20 | NUR ---
CN JOWIE INSERTED IV ON RIGHT UA 20G. FLUSHED AND PATENT. PT TOLERATED WELL. INFORMED RADIOLOGY THAT PT IS READY FOR CT OF THE ABDOMEN AND PELVIS.
--- NOTE | 2019-02-25 13:10 | NUR ---
PT BACK FROM RADIOLOGY. PER RADIOLOGY STAFF, THEY WERE UNABLE TO DO CT OF THE ABDOMEN AND PELVIS DUE THEIR CT MACHINE BROKE. PER RADIOLOGY STAFF, THEY WILL LET MD KNOW.
--- NOTE | 2019-02-25 14:06 | NUR ---
02/25/19 RD FOLLOW UP COMPLETED PLEASE REFER TO NUTRITION ASSESSMENT UNDER CARE ACTIVITY FOR ESTIMATED NUTRITIONAL NEEDS. 1. WHEN/IF PT MEDICALLY STABLE TO BEGIN NUTRITION, CONSIDER ADVANCE DIET TOLERATED TO OSMOLITE RATE TO 50 ML/HR X 24 HRS -THIS WILL PROVIDE 1,764 KCAL, 74 G PROTEIN AND 927 ML OF FREE WATER. WHICH MEETS 100% OF ESTIMATED NEEDS. 2. CONTINE FREE WATER FLUSH OF [address] WILL FOLLOW UP 2-3 DAYS, HIGH RISK JANICE LABOY RD
--- NOTE | 2019-02-25 15:30 | NUR ---
PT STABLE, SLEEPING, BUT EASILY AROUSABLE. FAMILY AT THE BEDSIDE.
[2019-02-25 16:00] VITALS: BP 138/59
--- NOTE | 2019-02-25 16:00 | NUR ---
ENDORSED PT TO MACHO FISHER FOR CONTINUITY OF CARE. PT STABLE.
--- NOTE | 2019-02-25 16:01 | NUR ---
RECEIVED REPORT FROM DAY NURSE. PT IS RESTING IN BED BREATHING UNLABORED WITH A RIGHT UPPER ARM IV THAT IS ASYMPTOMATIC AND PATENT. IV IS INFUSING 0.45 DEXTROSE AT 40 ML/HR. PATIENT HAS G TUBE WITH ALL LINES TRACED TO ORIGIN. SAFETY MEASURES IN PLACE AND FAMILY AT BEDSIDE, CALL LIGHT WITHIN REACH.
--- NOTE | 2019-02-25 16:22 | NUR ---
ADMINISTERED MEDICATION VIA G TUBE. 0 RESIDUAL AND FLUSHES WELL.
--- NOTE | 2019-02-25 16:35 | NUR ---
PT RESTING IN BED BREATHING UNLABORED, FEMALE VISITOR AT BEDSIDE. FLACC 0 WITH NO SIGNS OF OBVIOUS DISTRESS.
--- NOTE | 2019-02-25 17:07 | NUR ---
ADMINISTERED MEDICATION TO PT. HE IS BREATHING UNLABORED WITH NO OBVIOUS SIGNS OF DISTRESS. 3 FAMILY MEMBERS AT BEDSIDE VISITING. NO REQUESTS FROM ANYONE PRESENT AT THIS TIME. PT FLACC 0
--- NOTE | 2019-02-25 18:11 | NUR ---
PT RESTING IN BED BREATHING UNLABORED AND WITHOUT DISTRESS.
--- NOTE | 2019-02-25 18:51 | NUR ---
WAS AT BEDSIDE WITH DR BARROW AND PATIENT'S POA SON WHERE DR. BARROW DISCUSSED WITH PATIENT OPTIONS FOR SURGERY AND INFORMED HIM OF THE DECISION HE CAN MAKE RATHER OR NOT TO OPERATE AND ALSO INFORMED HIM OF PENDING BIOPSY RESULTS FROM COLONOSCOPY POLYPS.
--- NOTE | 2019-02-25 19:09 | NUR ---
GAVE BEDSIDE REPORT TO NIGHT NURSE, PT STABLE RECEIVING BREATHING TREATMENT AT THIS TIME FAMILY AT BEDSIDE.
--- NOTE | 2019-02-25 19:10 | NUR ---
REPORT RECEIVED FROM AM NURSE AT BEDSIDE. PT IN STABLE CONDITION. AAOX2. BOARD UPDATED. FLACC 0. NO SOB. AFEBRILE. PT IS UNABLE TO AMBULATE. IV SITE R UA 20G RUNNING NS@40ML/HR PATENT AND INTACT. SKIN WARM, DRY, AND INTACT WITH NO OPEN WOUNDS. BED LOCKED IN LOW POSITION. CALL TAYLOR WITHIN REACH. SAFETY PRECAUTION IN PLACE. ALL NEEDS MET AT THIS TIME.
--- NOTE | 2019-02-25 20:25 | NUR ---
KEPPRA GIVEN THROUGH GTUBE. ROCEPHIN HUNG AND RUNNING. MYCOSTATIN SWABBED MOUTH. PT TOLERATED WELL. CARDIZEM AND LOPRESSOR HELD DUE TO LOW DIASTOLIC BP OF 127/49.
--- NOTE | 2019-02-25 21:45 | NUR ---
PT SLEEPING COMFORTABLY IN BED. NO S/S OF DISTRESS NOTED. RESPIRATIONS EVEN, UNLABORED, AND WNL. WILL CONTINUE TO MONITOR.
[2019-02-26] VITALS: BP 135/57
--- NOTE | 2019-02-26 00:10 | NUR ---
PT AWAKE IN BED WATCHING TV. NO S/S OF DISTRESS NOTED. FLACC 0. NO SOB. AFEBRILE. WILL CONTINUE TO MONITOR.
--- NOTE | 2019-02-26 02:00 | NUR ---
PT SLEEPING COMFORTABLY IN BED. NO S/S OF DISTRESS NOTED. RESPIRATIONS EVEN, UNLABORED, AND WNL. WILL CONTINUE TO MONITOR.
--- NOTE | 2019-02-26 03:00 | NUR ---
PT SLEEPING COMFORTABLY IN BED BUT AROUSABLE. NO S/S OF DISTRESS NOTED. FLACC 0. NO SOB. AFEBRILE. WILL CONTINUE TO MONITOR.
[2019-02-26] MEDS: NACL 0.45% 1,000 ML IV SCH (04:26)
[2019-02-26] MEDS: methylPREDNISolone SS 40 MG/ML VIAL IVP SCH ×2 (05:03→17:03)
--- NOTE | 2019-02-26 05:03 | NUR ---
SOLUMEDROL GIVEN IVP. PT TOLERATED WELL.
[2019-02-26 06:45] LABS: ANION GAP 9.7 (8-16); CARBON DIOXIDE 33.2 mmol/L (21-32); CHLORIDE 101 mmol/L (98-107); CREATININE 0.7 mg/dL (0.7-1.3); GLUCOSE 152 mg/dL (74-106); POTASSIUM 3.9 mmol/L (3.5-5.1); SODIUM SERUM 140 mmol/L (136-145); UREA NITROGEN, BLOOD 15 mg/dL (7-18)
[2019-02-26 06:51] LABS: MAGNESIUM 2.1 mg/dL (1.8-2.4); PHOSPHORUS 3.6 mg/dL (2.5-4.9)
--- NOTE | 2019-02-26 07:10 | NUR ---
RECEIVED BEDSIDE REPORT FROM MACHO RAZA. PT STABLE, SLEEPING, BUT EASILY AROUSABLE. NO SIGNS OF DISTRESS NOTED. FLACC 0. NO REDNESS, SWELLING, OR INFLAMMATION NOTED ON IV SITE. TUBE FEEDING STILL ON HOLD PER MD ORDER. G-TUBE IN PLACE, NO LEAKING NOTED, DRESSING INTACT. CALL TAYLOR WITHIN REACH. BED IN LOWEST POSITION, BED ALARM ON. SAFETY MEASURES IN PLACE. PLAN OF CARE REVIEWED.
[2019-02-26] MEDS: ALBUTEROL SULFATE/IPRATROPIU 3 ML SOL IH SCH ×2 (07:21→13:41)
[2019-02-26 07:31] LABS: HEMATOCRIT 34.4 % (36-52); HEMOGLOBIN 10.7 g/dL (12.0-18.0); LYMPHOCYTES # (AUTO) 0.3 K/uL (2.0-11.5); LYMPHOCYTES % (AUTO) 5.5 % (20.5-51.1); MEAN CORPUSCULAR HEMOGLOBIN 27 pg (27-31); MEAN CORPUSCULAR HGB CONC 31 g/dL (33-37); MEAN CORPUSCULAR VOLUME 86.6 fL (80-94); MONOCYTES # (AUTO) 0.4 K/uL (0.8-1.0); MONOCYTES % (AUTO) 7.5 % (1.7-9.3); NEUTROPHILS # (AUTO) 4.8 K/uL (1.8-7.7); PLATELET COUNT (AUTO) 282 K/uL (140-450); RED BLOOD CELL COUNT(AUTO) 3.98 MIL/uL (4.20-6.10); RED CELL DISTRIBUTION WIDTH 16.9 % (11.6-13.7); WHITE BLOOD COUNT (AUTO) 5.5 K/uL (4.8-10.8)
[2019-02-26 08:00] VITALS: BP 113/67
--- NOTE | 2019-02-26 08:20 | NUR ---
PT REPOSITIONED, LINENS AND GOWN CHANGED. PT STABLE.
[2019-02-26] MEDS ORDERED: LACT10CA1 PO (09:31)
[2019-02-26] MEDS ORDERED: AZIT250T3 PO (09:31)
[2019-02-26] MEDS ORDERED: CEPH500C16 PO (09:31)
[2019-02-26] MEDS ORDERED: METH4TAB3 PO (09:44)
[2019-02-26] MEDS: METOPROLOL 25 MG TAB GT SCH (09:59)
[2019-02-26] MEDS: DIGOXIN 0.125 MG/2.5 ML UDC GT SCH (09:59)
[2019-02-26] MEDS: levETIRAcetam 100 MG/ML ORASYR GT SCH (09:59)
[2019-02-26] MEDS: AZITHROMYCIN 250 MG TAB PO SCH (10:00)
[2019-02-26] MEDS: LACTOBACILLUS RHAMNOSUS GG 1 EACH CAP PO SCH (10:00)
[2019-02-26] MEDS: NYSTATIN 500 MU/5 ML UDC PO SCH ×3 (10:00→17:02)
[2019-02-26] MEDS: DILTIAZEM 30 MG TAB GT SCH (10:01)
[2019-02-26] MEDS: FINASTERIDE 5 MG TAB GT SCH (10:01)
--- NOTE | 2019-02-26 10:30 | NUR ---
ADMINISTERED SCHEDULED MEDICATIONS, PT TOLERATED WELL. NO SIGNS OF DISTRESS NOTED.
--- NOTE | 2019-02-26 11:40 | NUR ---
PT'S SON ART AT THE BEDSIDE SPEAKING WITH DR CAPONE REGARDING PLAN OF CARE.
[2019-02-26] MEDS ORDERED: LACT1TAB47 PO (12:58)
[2019-02-26] MEDS ORDERED: LACT10SO1 PO (12:58)
[2019-02-26] MEDS ORDERED: SULF-59 PO (12:58)
--- NOTE | 2019-02-26 12:58 | NUR ---
CALLED PATIENTS INSURANCE GROUP [facility] AT [phone], SPOKE TO ASHLEY IN REGARDS TO NEEDING A HOME HEALTH PLAN FOR THE PATIENT. SHE ASKED FOR PATIENTS INSURANCE INFORMATION AND SAID THEY WILL CALL ME BACK AT [phone] WITH THE PATIENTS BENEFITS
[2019-02-26] MEDS ORDERED: ASPI-1718 PO (13:08)
--- NOTE | 2019-02-26 13:20 | NUR ---
ADMINISTERED SCHEDULED MEDICATION, PT TOLERATED WELL. FAMILY AT THE BEDSIDE. NO SIGNS OF DISTRESS NOTED.
[2019-02-26] MEDS ORDERED: LEVO750T2 PO (13:53)
[2019-02-26] MEDS ORDERED: METR500T1 PO (13:53)
--- NOTE | 2019-02-26 15:30 | NUR ---
SPOKE TO ROSHNI AUGUST, SON, HE IS AWARE THAT I AM UNABLE TO CONTACT INSURANCE OR BENEFITS FOR HOME HEALTH AT THIS TIME. DR CAPONE IS AWARE. FAMILY AGREED TO DISCHARGE THE PATIENT AND CELL ATTENDANT OR REFERRAL CLERK CAN WORK ON HOME HEALTH ON THURSDAY AND PROVIDE INFORMATION TO THE FAMILY. FAMILY WANTS TRANSPORTATION HOME BUT INSURANCE DOES NOT COVER IT, FAMILY AGREED TO PAY 90$ FOR TRANSPORT HOME. CALLED [employer] AT [phone] AND ARRANGED TRANSPORT AT 6:45PM. NARENDRA SCHULTZ RN AWARE, AND SON IS AWARE. HE SAID HE WILL COME BACK AROUND 6-6:45PM BEFORE TRANSPORT ARRIVES.
--- NOTE | 2019-02-26 15:50 | NUR ---
VITAL SIGNS TAKEN, PT STABLE. PT SLEEPING, CHEST RISE AND FALL VISIBLY NOTED. WILL CONTINUE TO MONITOR.
[2019-02-26 16:00] VITALS: BP 140/73
--- NOTE | 2019-02-26 17:08 | NUR ---
NO RESIDUAL NOTED FROM G-TUBE. ADMINISTERED SCHEDULED MEDICATIONS, PT TOLERATED WELL. NO SIGNS OF DISTRESS NOTED.
--- NOTE | 2019-02-26 18:50 | NUR ---
D/C INSTRUCTIONS AND PAPERWORK GIVEN TO PT'S SON TYRELL AND PT'S DAUGHTER NADINE. FAMILY VERBALIZED UNDERSTANDING. QUESTIONS AND CONCERNS WERE ADDRESSED. D/C IV, CATHETER TIP INTACT, BLEEDING CONTROLLED. PT IS STABLE, AAOX1. G-TUBE INTACT, NO SIGNS OF INFECTION NOTED. SKIN INTACT. PT'S PNEUMONIA AND FLU VACCINE ARE UP TO DATE. PT'S FAMILY TOOK ALL BELONGINGS WITH THEM. PT IS PICKED UP BY [employer] [facility]SPORT TO BE TAKEN BACK TO HIS HOME.
--- NOTE | 2019-02-28 10:04 | NUR ---
I endorsed to social service to ff up for the appt
--- NOTE | 2019-02-28 11:12 | NUR ---
Assistant Infant Toddler Teacher Note: I called and spoke with patient's son Jakob Cronin ; I informed him I was going to contact patient's health insurance plan to inquire if home health services can be approved. I explained to him that if onsite case manager from health insurance plan does not approve home health services I will call him and let him know. Otherwise, [facility]. He verbalized understanding. I verified patient's home address with Jakob [address] [place] [phone]. I faxed 's home health order to [facility], fax number . I called onsite case manager Marie from [facility] , no answer, left message.
== END 2019-02-26 18:56 | disposition home or self-care (01) | DRG 177 ==
LOC: MED 15:53 → MTU 17:20
PROVIDERS: ADMIT General Practice; ATTEND General Practice
PROC: 0DJ08ZZ Inspection of Upper Intestinal Tract, Via Natural or Artificial Opening Endoscopic (ICD-10-PCS; principal; 2019-02-24 15:50)
PROC: 0DBK8ZX Excision of Ascending Colon, Via Natural or Artificial Opening Endoscopic, Diagnostic (ICD-10-PCS; 2019-02-24 15:50)
PROC: 0DBN8ZZ Excision of Sigmoid Colon, Via Natural or Artificial Opening Endoscopic (ICD-10-PCS; 2019-02-24 15:50)
PROC: 0DBL8ZZ Excision of Transverse Colon, Via Natural or Artificial Opening Endoscopic (ICD-10-PCS; 2019-02-24 15:50)
DX: J69.0 Pneumonitis due to inhalation of food and vomit (principal); J96.02 Acute respiratory failure with hypercapnia; E43 Unspecified severe protein-calorie malnutrition; J96.01 Acute respiratory failure with hypoxia; N39.0 Urinary tract infection, site not specified; K92.2 Gastrointestinal hemorrhage, unspecified; C18.9 Malignant neoplasm of colon, unspecified; J43.9 Emphysema, unspecified; I50.9 Heart failure, unspecified; D64.9 Anemia, unspecified; E02 Subclinical iodine-deficiency hypothyroidism; G40.909 Epilepsy, unspecified, not intractable, without status epilepticus; R13.10 Dysphagia, unspecified; I10 Essential (primary) hypertension; I48.91 Unspecified atrial fibrillation; Z68.24 Body mass index [BMI] 24.0-24.9, adult; Z74.01 Bed confinement status; Z90.49 Acquired absence of other specified parts of digestive tract; Z86.73 Personal history of transient ischemic attack (TIA), and cerebral infarction without residual deficits; K72.90 Hepatic failure, unspecified without coma
CPT/HCPCS: 36415; 36600; 45381; 71045; 71260; 76604; 80048; 80053; 80162; 81001; 82140; 82150; 82272; 82607; 82728; 82746; 82803; 83036; 83540; 83605; 83690; 83735; 83880; 84100; 84439; 84443; 84484; 85025; 85045; 85610; 85730; 87040; 87081; 87086; 88305; 93005; 93970; 94640; 96361; 96374; 99285; C1758; J0696; J1200; J1940; J2250; J2920; J2930; J3010; J7030; J7042; J7060; J7620; Q0092; Q9967

== ENCOUNTER 2019-03-31 10:15 | Emergency (ER) | payer OTHER ==
[~2019-03-31] VITALS: Ht 162.6 cm; Wt 72.6 kg
[~2019-03-31 10:15] MED LIST changes: +ASPI-1718 PO; +LACT10SO1 PO; +LACT1TAB47 PO; +LEVO750T2 PO; +METH4TAB3 PO; +METR500T1 PO; -RIVA20TA PO
[2019-03-31 10:16] VITALS: BP 127/67
--- NOTE | 2019-03-31 10:22 | NUR ---
PT WHEELCHAIRED TO BED 3 Addendum: 03/31/19 at 1025 by [facility] BED 2
--- NOTE | 2019-03-31 10:30 | NUR ---
BIB FAMILY MEMBER C/O R KNEE PAIN X 3 DAYS. CAREGIVER STATES PT GROANS WHEN BEING MOVED. NO OBVIOUS DEFORMITY. WARM TO TOUCH. +3 SWELLING NOTICED. DENIES N/V/D; SKIN IS PINK/WARM/DRY; PT DENIES ANY FEVER, CP, SOB, OR COUGH AT THIS TIME; PER PATIENT'S FAMILY MEMBERS PT IS HAVING KNEE PAIN OF 8/10 AT THIS TIME; VSS; PATIENT POSITIONED FOR COMFORT AND SITTING IN WHEELCHAIR; ER MD MADE AWARE OF PT STATUS. FAMILY MEMBERS ARE AT BEDSIDE.
[2019-03-31 12:39] VITALS: BP 122/65
--- NOTE | 2019-03-31 12:39 | NUR ---
Patient discharged with v/s stable. Written and verbal after care instructions given and explained. Patient alert, oriented and verbalized understanding of instructions. Wheel Chair Assisted with by caregiver. All questions addressed prior to discharge. ID band removed. Patient advised to follow up with PMD. Rx of KEFLEX, MOTRIN given. Patient educated on indication of medication including possible reaction and side effects. Opportunity to ask questions provided and answered.
== END 2019-03-31 12:39 | disposition home or self-care (01) ==
LOC: MED 10:15
DX: L03.115 Cellulitis of right lower limb (principal); J44.9 Chronic obstructive pulmonary disease, unspecified; Z86.73 Personal history of transient ischemic attack (TIA), and cerebral infarction without residual deficits; Z90.49 Acquired absence of other specified parts of digestive tract; Z79.82 Long term (current) use of aspirin; Z79.899 Other long term (current) drug therapy
CPT/HCPCS: 93971; 99284

== ENCOUNTER 2019-08-02 13:41 | Inpatient (IN) | payer OTHER ==
[~2019-08-02] VITALS: Ht 170.2 cm; Wt 74.8 kg
--- NOTE | 2019-08-02 13:41 | NUR ---
Patient BIBA BLS, transferred to bed 6. RN evaluating patient at bedside.
[2019-08-02 13:45] VITALS: BP 122/60
--- NOTE | 2019-08-02 13:49 | NUR ---
PT BIBA BLS FOR SHORTNESS OF BREATH. PT NORMALLY ON 2L NC, PT RAN OUT OF OXYGEN SUPPLY AT HOME. PT SATURATION 95% ON 2L OF O2 VIA NC. PT HAS G-TUBE IN PLACE. DAUGHTER NOTICED BLOOD COMING FROM G-TUBE THE LAST 2 DAYS. ALLERGIES: UNKNOWN MED HX: PARALYZED FROM STROKE, SEIZURES, AND HTN.
--- NOTE | 2019-08-02 14:01 | NUR ---
88 Y/O M BIBA FOR SHORTNESS OF BREATH. PT NORMALLY ON 2L NC, PT RAN OUT OF BREATHING TX RX. PT SHORTNESS OF BREATH BECAME WORSE TODAY. PT SATURATION 95% ON 2L OF O2 VIA NC. GCS 8, PT AT BASELINE. PT NONVERBAL AND UNABLE TO MOVE RIGHT UPPER AND LOWER EXTREMITY. PT HAS HX OF STROKE IN 2017. HOB ELEVATED TO HIGH FOWLERS, BED IN LOWEST POSITION, BED RAIL UP X2. ERMD MADE AWARE OF PT STATUS. ALLERGIES: UNKNOWN MED HX: CVA 2017, SEIZURES, COPD, AND HTN.
--- NOTE | 2019-08-02 14:01 | NUR ---
Note undone in EDM - 08/02/19 at 1701 by [email or web address] PT BIBA FOR SHORTNESS OF BREATH. PT NORMALLY ON 2L NC, PT RAN OUT OF OXYGEN SUPPLY AT HOME. PT SATURATION 95% ON 2L OF O2 VIA NC. GCS 8, PT AT BASELINE. PT NONVERBAL AND UNABLE TO MOVE EXTREMITIES. PT IS PARALYZED FROM HX OF STROKE. ALLERGIES: UNKNOWN MED HX: PARALYZED FROM STROKE, SEIZURES, AND HTN.
--- NOTE | 2019-08-02 14:30 | NUR ---
FAMILY AT BEDSIDE
[2019-08-02 15:07] LABS: BASOPHILS % (AUTO) 0.2 % (0.0-2.0); EOSINOPHILS # (AUTO) 0.1 K/uL (0-0.4); EOSINOPHILS % (AUTO) 1.2 % (0.0-4.0); HEMATOCRIT 39.1 % (36-52); HEMOGLOBIN 12.4 g/dL (12.0-18.0); LYMPHOCYTES # (AUTO) 1.2 K/uL (2.0-11.5); LYMPHOCYTES % (AUTO) 11.7 % (20.5-51.1); MEAN CORPUSCULAR HEMOGLOBIN 30 pg (27-31); MEAN CORPUSCULAR HGB CONC 32 g/dL (33-37); MONOCYTES # (AUTO) 0.7 K/uL (0.8-1.0); MONOCYTES % (AUTO) 6.8 % (1.7-9.3); NEUTROPHILS # (AUTO) 8.1 K/uL (1.8-7.7); NEUTROPHILS % (AUTO) 80.1 % (42.2-75.2); PLATELET COUNT (AUTO) 252 K/uL (140-450); RED BLOOD CELL COUNT(AUTO) 4.12 MIL/uL (4.20-6.10); RED CELL DISTRIBUTION WIDTH 15.6 % (11.6-13.7); WHITE BLOOD COUNT (AUTO) 10.1 K/uL (4.8-10.8)
[2019-08-02 15:17] LABS: ANION GAP 7.9 (8-16); CARBON DIOXIDE 35.4 mmol/L (21-32); CHLORIDE 96 mmol/L (98-107); CREATININE 0.7 mg/dL (0.7-1.3); GLUCOSE 359 mg/dL (74-106); POTASSIUM 4.3 mmol/L (3.5-5.1); SODIUM SERUM 135 mmol/L (136-145); UREA NITROGEN, BLOOD 13 mg/dL (7-18)
[2019-08-02 15:23] LABS: ALBUMIN 2.8 g/dL (3.4-5.0); ASPARTATE AMINOTRANSFERASE 39 U/L (15-37); TOTAL BILIRUBIN 0.4 mg/dL (0.0-1.0)
--- NOTE | 2019-08-02 15:42 | NUR ---
PT IN HIGH FOWLERS POSITION. VSS. DAUGHTER IN LAW AND DAUGHTER AT BEDSIDE. PER FAMILY MEMBERS PT HAS COPD AND RAN OUT OF BREATHING TX ALBUTEROL "AND ANOTHER ONE RX"
--- NOTE | 2019-08-02 16:46 | NUR ---
PT RESTING IN BED WITH FAMILY AT BEDSIDE. VSS. WILL CONTINUE TO MONITOR.
--- NOTE | 2019-08-02 17:15 | NUR ---
DR. HUNTER PERFORMING BEDSIDE ULTRASOUND
[2019-08-02] MEDS ORDERED: FUROSEMIDE 40 MG/4 ML VIAL IVP ONE (17:35)
--- NOTE | 2019-08-02 18:00 | NUR ---
PT RESTING IN BED IN HIGH FOWLERS POSITION. VSS. WILL CONTINUE TO MONITOR.
--- NOTE | 2019-08-02 18:12 | NUR ---
PT WENT TO CT [facility]IA [facility]
[2019-08-02] MEDS ORDERED: MORPHINE SULFATE 2 MG/ML SYR IVP PRN (18:15)
[2019-08-02] MEDS ORDERED: ZOLPIDEM 5 MG TAB PO PRN (18:15)
[2019-08-02] MEDS ORDERED: HYDROcodone/APAP 5/325 MG 1 TAB TAB PO PRN (18:15)
[2019-08-02] MEDS ORDERED: ONDANSETRON 4 MG/2 ML VIAL IM/IVP PRN (18:15)
[2019-08-02] MEDS ORDERED: LORazepam 2 MG/ML VIAL IM/IVP PRN (18:15)
[2019-08-02] MEDS ORDERED: ACETAMINOPHEN 325 MG TAB PO PRN (18:15)
[2019-08-02] MEDS ORDERED: DOCUSATE SODIUM 100 MG GELCAP PO PRN (18:15)
[2019-08-02] MEDS ORDERED: BUDE1AER2 IH (18:23)
--- NOTE | 2019-08-02 18:25 | NUR ---
RETURN FROM CT.
--- NOTE | 2019-08-02 18:27 | NUR ---
CONTACT NUMBER FOR PT: ART (POWER OF CHEMICAL RESEARCH ENGINEER) [phone].
--- NOTE | 2019-08-02 18:55 | NUR ---
TRANSFER OF CARE AND REPORT GIVEN TO MACHO CAMERON
--- NOTE | 2019-08-02 18:55 | NUR ---
Patient will be admitted to care of [facility]. Admited to TELE. Will go to [id number]. Belongings list completed. Report to MACHO CAMERON.
[2019-08-02] MEDS: NACL 0.9% 1,000 ML IV SCH (18:58)
--- NOTE | 2019-08-02 18:58 | NUR ---
STARTED IVF PER MD ORDER. DR KERR IS BY BEDSIDE AND ASSESSING PATIENT. SAFETY MEASURES IN PLACE.
--- NOTE | 2019-08-02 19:13 | NUR ---
UNABLE TO OBTAIN ABG IN THE ER. NURSE IS AWARE. WILL ATTEMPT TO GET ABG WHEN PATIENT GETS TRANSFERRED TO THE FLOOR
[2019-08-02 19:28] LABS: PROTHROMBIN TIME 9.8 secs (10.8-13.4)
--- NOTE | 2019-08-02 19:28 | NUR ---
ENDORSED PATIENT AT BEDSIDE TO BRAKE MECHANIC NURSE FOR CONTINUITY OF CARE. FAMILY MEMBERS BY BEDSIDE. NO SIGNS OF DISTRESS NOTED. PATIENT IS IN STABLE CONDITION. SAFETY MEASURES IN PLACE.
--- NOTE | 2019-08-02 19:29 | NUR ---
RECEIVED PATIENT FROM PREVIOUS AM SHIFT NURSE, PT WITH IV ON THE LEFT HAND G 22 HEPARIN DRIP AT 650 U/HR, PATENT. ON RIGHT FOREARM G 22 AT 60 ML/ HR. PT IS LETHARGIC; AWAKE ONLY . NONVERBAL; BEDBOUND. PLACED ON LOW BED; WILL CO NTINUE TO MONITOR. .
[2019-08-02 20:00] VITALS: BP 143/71
[2019-08-02 20:07] LABS: MAGNESIUM 2.2 mg/dL (1.8-2.4); PHOSPHORUS 2.7 mg/dL (2.5-4.9); THYROID STIMULATING HORMONE 2.52 uIU/mL (0.34-3.74)
[2019-08-02] MEDS: levETIRAcetam 100 MG/ML ORASYR GT SCH (20:48)
--- NOTE | 2019-08-02 20:48 | NUR ---
GAVE KEPPRA- VERIFIED W/ DR. BARAKAT DISCARD THE 2. 5 ML, DOSAGE ON HAND IS 1000ML. THEN ALSO TO GIVE ANOTHER KEPPRA 100MG LATER Addendum: 08/02/19 at 2247 by Radha Villalobos RN DOSAGE ON HAND IS 1000MG. NOT ML
[2019-08-02] MEDS: METOPROLOL 25 MG TAB PO SCH (20:49)
[2019-08-02] MEDS: FINASTERIDE 5 MG TAB PO SCH (20:49)
[2019-08-02] MEDS ORDERED: LEVOFLOXACIN 750 MG/D5W PREMIX 150 ML IV SCH (21:00)
[2019-08-02] MEDS: ALBUTEROL SULFATE/IPRATROPIU 3 ML SOL IH PRN (21:27)
--- NOTE | 2019-08-02 22:00 | NUR ---
INSERTED CARMONA CATHETER ASEPTICALLY, URINE FLOWING NOTED.
[2019-08-02] MEDS: levETIRAcetam 100 MG/ML ORASYR PO SCH (22:45)
--- NOTE | 2019-08-02 22:45 | NUR ---
GAVE THE 100MG KEPPRA- DISCARDED 4 ML, GAVE 1 ML ONLY
[2019-08-03] VITALS: BP 144/68
[2019-08-03] MEDS ORDERED: LACTULOSE 20 GM/30 ML UDC PO SCH
--- NOTE | 2019-08-03 | NUR ---
CHECKED ON PATIENT VITALS ARE WNL; WILL CONTINUE TO MONITOR
--- NOTE | 2019-08-03 02:00 | NUR ---
TURNED PATIENT AND CLEANED PATIENT, WILL CONTINUE TO MONITOR
[2019-08-03 02:36] LABS: APPEARANCE,URINE CLEAR (CLEAR); BILIRUBIN,URINE NEGATIVE (NEGATIVE); BLOOD, URINE TRACE-I (NEGATIVE); COLOR,URINE YELLOW (YELLOW); LEUKOCYTE ESTERASE ,URINE NEGATIVE (NEGATIVE); NITRITE, URINE NEGATIVE (NEGATIVE); PH,URINE 5.5 (5.0-9.0); UGLUCOSE NEGATIVE (NEGATIVE)
[2019-08-03 03:25] LABS: RBC,URINE 0-5 /HPF (0-5); WBC,URINE 0-5 /HPF (0-5)
[2019-08-03 06:00] VITALS: BP 139/61
[2019-08-03] MEDS: ALBUTEROL SULFATE/IPRATROPIU 3 ML SOL IH SCH ×3 (06:00→18:33)
--- NOTE | 2019-08-03 06:12 | NUR ---
PT STILL LETHARGIC NON VERBAL;PT IN STABLE CONDITION. STILL FOR GT FEEDING. WILL ENDORSE TO NEXT SHIFT
[2019-08-03 06:19] LABS: BASOPHILS % (AUTO) 0.3 % (0.0-2.0); EOSINOPHILS # (AUTO) 0.1 K/uL (0-0.4); EOSINOPHILS % (AUTO) 0.8 % (0.0-4.0); HEMATOCRIT 39.1 % (36-52); HEMOGLOBIN 12.3 g/dL (12.0-18.0); LYMPHOCYTES # (AUTO) 1.2 K/uL (2.0-11.5); LYMPHOCYTES % (AUTO) 11.5 % (20.5-51.1); MEAN CORPUSCULAR HEMOGLOBIN 30 pg (27-31); MEAN CORPUSCULAR HGB CONC 32 g/dL (33-37); MEAN CORPUSCULAR VOLUME 96.2 fL (80-94); MONOCYTES # (AUTO) 0.8 K/uL (0.8-1.0); MONOCYTES % (AUTO) 7.5 % (1.7-9.3); NEUTROPHILS # (AUTO) 8.1 K/uL (1.8-7.7); NEUTROPHILS % (AUTO) 79.9 % (42.2-75.2); PLATELET COUNT (AUTO) 248 K/uL (140-450); RED BLOOD CELL COUNT(AUTO) 4.06 MIL/uL (4.20-6.10); RED CELL DISTRIBUTION WIDTH 15.9 % (11.6-13.7); WHITE BLOOD COUNT (AUTO) 10.1 K/uL (4.8-10.8)
[2019-08-03 06:23] LABS: ANION GAP 9.7 (8-16); CARBON DIOXIDE 36.1 mmol/L (21-32); CHLORIDE 99 mmol/L (98-107); CREATININE 0.7 mg/dL (0.7-1.3); GLUCOSE 215 mg/dL (74-106); POTASSIUM 3.8 mmol/L (3.5-5.1); SODIUM SERUM 141 mmol/L (136-145); UREA NITROGEN, BLOOD 11 mg/dL (7-18)
[2019-08-03 06:33] LABS: CHOL/HDL RATIO 4.9 (1-4.5)
--- NOTE | 2019-08-03 07:30 | NUR ---
PATIENT AWAKE, STUPOROUS, NON VERBAL. RESPIRATION EVEN AND UNLABORED. O2 NC ON @ 2L. PER NIGHT NURSE GT FEEDING TO START THIS MORNING. GT INTACT AND PATENT. IV INTACT AND PATENT TO RIGHT HAND 22G WITH IVF NS @ 80ML/HR. TOLERATING WELL. CARMONA CATHETER INTACT AND DRAINING DARK YELLOW COLORED URINE. BED ALARM ON. WILL CONTINUE TO MONITOR. CALL LIGHT WITHIN REACH.
[2019-08-03 08:00] VITALS: BP 121/50
[2019-08-03 08:10] LABS: T4 (THYROXINE) 7.4 ug/dL (4.5-12.0)
--- NOTE | 2019-08-03 08:17 | NUR ---
PATIENT HAS BEEN SCREENED AND CATEGORIZED HIGH NUTRITION RISK. PATIENT WILL BE SEEN WITHIN 1-2 DAYS OF ADMISSION. 08/03/19-08/04/[address]
[2019-08-03] MEDS ORDERED: FUROSEMIDE 40 MG/4 ML VIAL IVP SCH (09:00)
[2019-08-03] MEDS ORDERED: NON-FORMULARY ITEM (Lactulose 30 ML) PO SCH (09:00)
[2019-08-03] MEDS: METOPROLOL 25 MG TAB PO SCH ×2 (09:00→20:35)
[2019-08-03] MEDS: levETIRAcetam 100 MG/ML ORASYR GT SCH ×2 (09:28→20:34)
[2019-08-03] MEDS: LACTULOSE 20 GM/30 ML UDC PO SCH ×2 (09:30→20:34)
[2019-08-03] MEDS: levETIRAcetam 100 MG/ML ORASYR PO SCH ×2 (09:30→20:34)
[2019-08-03] MEDS: ASPIRIN 81 MG TAB.CHEW PO SCH (09:31)
[2019-08-03] MEDS: DIGOXIN 0.125 MG TAB PO SCH (09:31)
[2019-08-03] MEDS: DILTIAZEM 30 MG TAB PO SCH (09:32)
[2019-08-03] MEDS: RIVAROXABAN 10 MG TAB PO SCH (09:33)
[2019-08-03] MEDS: FUROSEMIDE 40 MG/4 ML VIAL IVP SCH (09:34)
--- NOTE | 2019-08-03 09:45 | NUR ---
STILL AWAITING FOR GT FEEDING TO BE DELIVERED FOR PT. PT IN BED, HOB ELEVATED. AM MEDICATIONS GIVEN VIA GT. NO S/S OF DISTRESS NOTED. WILL CONTINUE TO MONITOR. FAMILY AT BEDSIDE.
--- NOTE | 2019-08-03 10:30 | NUR ---
GT FEEDING STARTED WITH OSMOLITE 1.5 @ 30ML. PT HOB ELEVATED. PT ASLEEP, RESPIRATION EVEN AND UNLABORED. FAMILY AT BEDSIDE. O2 @ 2L IN PLACE. CARMONA CATHETER INTACT AND DRAINING WITH DARK YELLOW COLORED URINE. WILL CONTINUE TO MONITOR.
[2019-08-03] MEDS: NACL 0.9% 1,000 ML IV SCH (10:54)
--- NOTE | 2019-08-03 11:55 | NUR ---
DISCHARGE PLANNIN88 Y/O MALE PATIENT FROM HOME, WHO CAME IN DUE TO WORSENING SOB AND WORK OF BREATHING. PAST MEDICAL HISTORY INCLUDE COPD, ACUTE HYPOXIC HYPERCAPNIC RESPIRATORY FAILURE, EMPHYSEMA AND SEVERE MALNUTRITION. INITIAL DIAGNOSIS OF ALOC, SOB AND CHF EXACERBATION. CXR NORMAL ON ADMISSION, TODAY IT SHOWED PROMINENT INTERSTITIAL MARKINGS SUGGESTIVE CHRONIC LUNG CHANGE. 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 CURRENT LABS INCLUDE WBC 10.1, H/H 12.3/39.1 AND CO2 36.1. PULMO CONSULT WITH DR. PAULINO FOR PNEUMONIA. ON SOLUMEDROL, XARELTO AND LEVOFLOXACIN. DC PLAN PENDING ON PATIENT'S RESPONSE TO TREATMENT. Addendum: 08/03/19 at 1353 by Audrey Cook CM CONTACTED PERICO MCFARLANE AT [phone], REGARDING AUTH FOR TODAY'S STAY. SHE STATED TO FAX CLINICALS SO SHE CAN REVIEW IT AND WILL GIVE ME CALL BACK. CLINICALS FAXED TO [phone]. PERICO TO FOLLOW UP.
[2019-08-03 12:00] VITALS: BP 118/40
--- NOTE | 2019-08-03 12:00 | NUR ---
GT FEEDING INCREASED TO 55ML/HR. WILL MONITOR PATIENT.
--- NOTE | 2019-08-03 13:00 | NUR ---
GT FEEDING CHECKED, NO RESIDUAL NOTED. PATIENT TOLERATING WELL. PATIENT IN BED, ASLEEP ABLE TO WAKE, NON VERBAL. NO S/S OF DISTRESS NOTED.
--- NOTE | 2019-08-03 13:43 | NUR ---
08/03/19 RD INITIAL ASSESSMENT COMPLETED PLEASE REFER TO NUTRITION ASSESSMENT UNDER CARE ACTIVITY FOR ESTIMATED NUTRITIONAL NEEDS. 1. RECOMMEND INCREASING OSMOLITE 1.5 TO 55 ML/HR X 24 HR GOAL RATE -THIS WILL PROVIDE 1320 ML OF VOLUME, 1980 KCAL, 83 GM PROTEIN WHICH MEETS 100% OF ESTIMATED NEEDS 2. RECOMMEND FREE WATER FLUSH [address] TO FOLLOW-UP 2-3 DAYS, HIGH RISK JANICE LABOY RD
[2019-08-03 16:00] VITALS: BP 134/59
--- NOTE | 2019-08-03 16:00 | NUR ---
PATIENT IS IN BED, RESPIRATION EVEN AND UNLABORED. NO S/S OF RESPIRATORY DISTRESS NOTED. HOB ELEVATED, GT FEEDING CONTINUED. IVF INFUSING @ 80ML/HR. CALL LIGHT WITHIN REACH.
--- NOTE | 2019-08-03 16:05 | NUR ---
Customer Liaison Assessment/Discharge Plan: I met with patient and patient's niece Zeinab Blunt at bedside. Zeinab speaks Emirati. She stated she does not know if patient has an Advance Directive and referred me to ask patient's daughter Lupe Austin . Patient lives at home with Lupe. Patient's pcp is Nathan Stewart. Lupe takes patient to medical appointments. Zeinab and her daughter Crissy Banks assist patient with ADLs at home. Patient's daughters Sofiya and Lupe picker packer patient's medication from pharmacy without any difficulty. Zeinab stated patient is non ambulatory and non verbal. Patient has a wheelchair and nebulizer at home. I called patient's daughter Lupe, no answer, left message. Addendum: 08/08/19 at 1326 by Glenna Damico Late entry for 08/03/19: Per Zeinab, patient has a angy lift at home.
--- NOTE | 2019-08-03 18:39 | NUR ---
PT IN STABLE CONDITION. WILL ENDORSE TO NIGHT NURSE.
--- NOTE | 2019-08-03 19:30 | NUR ---
ASSUMED CARE OF PATIENT, LETHARGIC, NONVERBAL. NO DISTRESS NOTED. FAMILY AT BEDSIDE. CARE BOARD UPDATED. CALL LIGHT WITHIN REACH.
--- NOTE | 2019-08-03 20:00 | NUR ---
VITALS STABLE. HOB ELEVATED AT ALL TIMES. AFEBRILE. CALL LIGHT WITHIN REACH.
[2019-08-03] MEDS: FINASTERIDE 5 MG TAB PO SCH (20:35)
--- NOTE | 2019-08-03 21:00 | NUR ---
RESIDUAL-20ML. DUE MEDS GIVEN. REPOSITIONED. PERICARE DONE. CALL LIGHT WITHIN REACH.
[2019-08-03 22:26] VITALS: BP 123/55
--- NOTE | 2019-08-04 | NUR ---
REPOSITIONED WITH SUMO WRESTLER. GT FEEDING TOLERATED WELL. CALL LIGHT WITHIN REACH. VITAL SIGNS STABLE. AFEBRILE. SLEEPING WELL.
[2019-08-04 01:03] VITALS: BP 135/59
--- NOTE | 2019-08-04 02:00 | NUR ---
NO RESIDUAL GT FEEDING NOTED. REPOSITIONED. CALL LIGHT WITHIN REACH.
[2019-08-04] MEDS: NACL 0.9% 1,000 ML IV SCH (03:34)
[2019-08-04 04:33] VITALS: BP 125/56
--- NOTE | 2019-08-04 04:35 | NUR ---
PERICARE DONE AND AM CARE DONE WITH DRILL PUNCH OPERATOR. REPOSITIONED. AFEBRILE. VITAL SIGNS STABLE. NO DISTRESS. HOB ELEVATED AT ALL TIME. CALL LIGHT WITHIN REACH.
--- NOTE | 2019-08-04 09:45 | NUR ---
Civil Process Server Note: I called patient's daughter Lupe Austin , no answer, left message.
[2019-08-04] MEDS ORDERED: metroNIDAZOLE 500 MG/NS PREMIX 100 ML IV ONE ×2 (18:16→22:52)
[2019-08-05] MEDS: ALBUTEROL SULFATE/IPRATROPIU 3 ML SOL IH SCH (07:05)
--- NOTE | 2019-08-05 07:20 | NUR ---
RECEIVED REPORT FROM NIGHT NURSESWAPNA. PT IS ASLEEP IN BED, PT HAS A DX. ALOC, SOB, R HEMIPLEGIA, GCS 5, A FIB, SEIZURE, HTN, HEPATIC ENCEPHALOPATHY. PT ON GT FEEDING, OSMOLITE 1.5 AT RATE OF 55 ML.HR, PT HAD A TARRY STOOL YESTERDAY, PT HAS A L HAND 22 G IV, RUNNING AT 60 ML/H NORMAL SALINE. PT HAS CARMONA CATH IN PLACE, WITH YELLOW URINE. PT IS ON 2 L NC AND CURRENTLY RECEIVING A BREATHING TREATMENT BY RT. PT HAS L HAND HEMATOMA. PT APPEARS STABLE WITHOUT ANY SIGNS OF DISTRESS. CALL LIGHT WITHIN REACH. Addendum: 08/05/19 at 0832 by Ana Landaverde RN SAFETY MEASURES IN PLACE, BED IN LOW POSITION
[2019-08-05 08:00] VITALS: BP 139/57
--- NOTE | 2019-08-05 15:32 | NUR ---
Content Designer Note: I called patient's daughter Lupe Austin , no answer, left message.
--- NOTE | 2019-08-05 19:30 | NUR ---
RECEIVED BEDSIDE REPORT FROM DAY SHIFT NURSE JESSICA RN, PT STABLE, NO DISTRESS NOTED, IV TO R HAND 24G PATENT INTACT, INFUSING WELL, PT ON 2LPM O2 VIA NC, NO SOB NOTED, CARMONA CATH IN PLACE DRAINING YELLOW URINE, G TUBE IN PLACE WITH FEEDINGS, PT APHASIC, INITIAL ASSESSMENT DONE ALL SAFETY PRECAUTION MET, CALL LIGHT WITHIN REACH, WILL CONTINUE TO MONITOR.
[2019-08-05 20:00] VITALS: BP 139/67
--- NOTE | 2019-08-05 20:01 | NUR ---
PT RESTING, NO DISTRESS NOTED, SON AT BEDSIDE, CALL LIGHT WITHIN REACH, V/S TAKEN WITHIN PT BASELINE, WILL CONTINUE TO MONITOR.
[2019-08-05 20:11] LABS: CARBON DIOXIDE 36.9 mmol/L (21-32); CHLORIDE 102 mmol/L (98-107); CREATININE 0.7 mg/dL (0.7-1.3); GLUCOSE 315 mg/dL (74-106); MAGNESIUM 2.2 mg/dL (1.8-2.4); PHOSPHORUS 2.5 mg/dL (2.5-4.9); POTASSIUM 3.9 mmol/L (3.5-5.1); SODIUM SERUM 141 mmol/L (136-145); UREA NITROGEN, BLOOD 11 mg/dL (7-18)
[2019-08-05] MEDS: FINASTERIDE 5 MG TAB PO SCH (21:00)
[2019-08-05] MEDS: LACTULOSE 20 GM/30 ML UDC PO SCH (22:48)
[2019-08-05] MEDS: METOPROLOL 25 MG TAB PO SCH (22:49)
[2019-08-05] MEDS: methylPREDNISolone SS 40 MG/ML VIAL IVP SCH (22:50)
--- NOTE | 2019-08-05 22:57 | NUR ---
DUE MEDICATION ADMINISTERED, PT TOLERATED WELL, MEDICATION WAS DELAYED DUE NOT FUNCTIONING PHYXIS, PT RESTING, NO DISTRESS NOTED, CALL LIGHT WITHIN REACH, WILL CONTINUE TO MONITOR.
[2019-08-05] MEDS ORDERED: levETIRAcetam 100 MG/ML ORASYR ONE (23:03)
[2019-08-05] MEDS: levETIRAcetam 100 MG/ML ORASYR GT SCH (23:03)
[2019-08-06] VITALS: BP 143/55
--- NOTE | 2019-08-06 00:30 | NUR ---
CHECKED ON PT, PT SLEEPING, NO DISTRESS NOTED,V/S TAKEN, CALL LIGHT WITHIN REACH, WILL CONTINUE TO MONITOR.
[2019-08-06 04:00] VITALS: BP 142/63
--- NOTE | 2019-08-06 04:13 | NUR ---
PT SLEEPING, NO DISTRESS NOTED, CALL LIGHT WITHIN REACH, V/S TAKEN, WILL CONTINUE TO MONITOR.
[2019-08-06] MEDS: NACL 0.9% 1,000 ML IV SCH (05:34)
[2019-08-06] MEDS: methylPREDNISolone SS 40 MG/ML VIAL IVP SCH ×3 (05:55→21:10)
[2019-08-06] MEDS: metroNIDAZOLE 500 MG/NS PREMIX 100 ML IV SCH ×2 (06:00→12:08)
[2019-08-06] MEDS ORDERED: methylPREDNISolone SS 40 MG/ML VIAL ONE (06:54)
[2019-08-06] MEDS: ALBUTEROL SULFATE/IPRATROPIU 3 ML SOL IH SCH ×3 (07:02→19:54)
--- NOTE | 2019-08-06 07:15 | NUR ---
RECEIVED PT FROM STEEL DETAILER NURSE. PT IS AWAKE, BUT DOES NOT APPEAR TO BE ALERT/ORIENTED. PT IS APHASIC. LARGE PURPLE BRUISE IS NOTED ON THE L HAND, AND ON THE L AC. IV IS NOTED ON THE R HAND 24 G, INFUSING NS 60 ML/HR. CARMONA CATHETER IN PLACE. G TUBE IS RUNNING OSMOLITE 55 ML/HR, WITH WATER FLUSHES 240 ML Q6H. SCD'S ARE ON. SEIZURE AND FALL PRECAUTIONS ARE IN PLACE. CALL LIGHT IS WITHIN REACH. WILL CONTINUE TO MONITOR. Addendum: 08/06/19 at 0815 by Mariaelena Silva RN PT IS ON 2L O2 NC. SKIN, ASIDE FROM LUE BRUISES, IS INTACT. NO S/S OF ACUTE DISTRESS NOTED.
--- NOTE | 2019-08-06 07:23 | NUR ---
ENDORSED PT TO DAY SHIFT NURSE GEOVANY RN, PT STABLE, NO DISTRESS NOTED, CALL LIGHT WITHIN REACH.
[2019-08-06 08:00] VITALS: BP 145/64
[2019-08-06 08:05] LABS: BASOPHILS % (AUTO) 0.1 % (0.0-2.0); HEMATOCRIT 35.8 % (36-52); HEMOGLOBIN 11.2 g/dL (12.0-18.0); LYMPHOCYTES # (AUTO) 0.4 K/uL (2.0-11.5); LYMPHOCYTES % (AUTO) 7.9 % (20.5-51.1); MEAN CORPUSCULAR HEMOGLOBIN 30 pg (27-31); MEAN CORPUSCULAR HGB CONC 31 g/dL (33-37); MEAN CORPUSCULAR VOLUME 96.8 fL (80-94); MONOCYTES # (AUTO) 0.2 K/uL (0.8-1.0); MONOCYTES % (AUTO) 3.2 % (1.7-9.3); NEUTROPHILS # (AUTO) 4.5 K/uL (1.8-7.7); NEUTROPHILS % (AUTO) 88.8 % (42.2-75.2); PLATELET COUNT (AUTO) 243 K/uL (140-450); RED CELL DISTRIBUTION WIDTH 15.1 % (11.6-13.7)
[2019-08-06 08:56] LABS: ANION GAP 8.4 (8-16); CARBON DIOXIDE 33.9 mmol/L (21-32); CHLORIDE 105 mmol/L (98-107); CREATININE 0.8 mg/dL (0.7-1.3); POTASSIUM 4.3 mmol/L (3.5-5.1); SODIUM SERUM 143 mmol/L (136-145); UREA NITROGEN, BLOOD 13 mg/dL (7-18)
[2019-08-06 09:07] LABS: MAGNESIUM 2.1 mg/dL (1.8-2.4); PHOSPHORUS 2.3 mg/dL (2.5-4.9)
[2019-08-06 09:14] LABS: GLUCOSE 474 mg/dL (74-106)
[2019-08-06] MEDS ORDERED: DEXTROSE 50% 50 ML SYR IVP PRN (09:20)
--- NOTE | 2019-08-06 09:42 | NUR ---
DR ALAMO AWARE OF PT'S GLUCOSE 474 AND WILL ORDER INSULIN COVERAGE
[2019-08-06] MEDS ORDERED: INSULIN LISPRO 100 UNITS/ML VIAL SUBQ SCH ×3 (10:00→14:30)
[2019-08-06] MEDS: ASPIRIN 81 MG TAB.CHEW PO SCH (10:31)
[2019-08-06] MEDS: LACTULOSE 20 GM/30 ML UDC PO SCH ×2 (10:31→21:10)
[2019-08-06] MEDS: FUROSEMIDE 40 MG/4 ML VIAL IVP SCH (10:32)
[2019-08-06] MEDS: DIGOXIN 0.125 MG TAB PO SCH (10:32)
[2019-08-06] MEDS: METOPROLOL 25 MG TAB PO SCH ×2 (10:32→21:19)
[2019-08-06 10:36] LABS: BASOPHILS % (AUTO) 0.4 % (0.0-2.0); EOSINOPHILS # (AUTO) 0.1 K/uL (0-0.4); EOSINOPHILS % (AUTO) 1.8 % (0.0-4.0); HEMATOCRIT 36.2 % (36-52); HEMOGLOBIN 11.3 g/dL (12.0-18.0); LYMPHOCYTES % (AUTO) 12.9 % (20.5-51.1); MEAN CORPUSCULAR HEMOGLOBIN 30 pg (27-31); MEAN CORPUSCULAR HGB CONC 31 g/dL (33-37); MEAN CORPUSCULAR VOLUME 97.1 fL (80-94); MONOCYTES # (AUTO) 0.8 K/uL (0.8-1.0); MONOCYTES % (AUTO) 9.5 % (1.7-9.3); NEUTROPHILS % (AUTO) 75.4 % (42.2-75.2); PLATELET COUNT (AUTO) 230 K/uL (140-450); RED BLOOD CELL COUNT(AUTO) 3.73 MIL/uL (4.20-6.10); RED CELL DISTRIBUTION WIDTH 15.9 % (11.6-13.7)
--- NOTE | 2019-08-06 10:52 | NUR ---
AM MEDS ADMINISTERED, 10 UNITS HUMALOG ADMINISTERED FOR ELEVATED BLOOD GLUCOSE, WILL RECHECK WITHIN AN HOUR.
[2019-08-06] MEDS: INSULIN LISPRO SLIDING SCALE 100 UNITS/ML VIAL SUBQ PRN ×3 (11:57→23:03)
[2019-08-06 12:00] VITALS: BP 113/49
[2019-08-06] MEDS ORDERED: metroNIDAZOLE 500 MG/NS PREMIX 100 ML IV SCH (12:00)
[2019-08-06] MEDS: BLOOD GLUCOSE MONITORING 1 DEV DEV FS SCH ×3 (12:02→21:00)
[2019-08-06] MEDS: RIVAROXABAN 10 MG TAB PO SCH (12:22)
[2019-08-06] MEDS: DILTIAZEM 30 MG TAB PO SCH (12:22)
[2019-08-06] MEDS: levETIRAcetam 100 MG/ML ORASYR GT SCH ×2 (12:26→21:12)
--- NOTE | 2019-08-06 12:41 | NUR ---
PT BG IS 498 AT THIS TIME, AFTER THE 10 UNITS OF SLIDING SCALE INSULIN WAS GIVEN. DR PAEZ MADE AWARE
--- NOTE | 2019-08-06 14:00 | NUR ---
BLOOD GLUCOSE IS 376 AT THIS TIME, DR GARVIN IS AWARE.
[2019-08-06] MEDS ORDERED: INSULIN REGULAR, HUMAN 100 UNIT/ML VIAL IVP ONE (14:10)
--- NOTE | 2019-08-06 14:30 | NUR ---
PT'S SON VISITING AT BEDSIDE. NO S/S OF ACUTE DISTRESS NOTED.
[2019-08-06] MEDS ORDERED: LACTULOSE 20 GM/30 ML UDC PO SCH (15:00)
[2019-08-06] MEDS ORDERED: SODIUM PHOS / POTASSIUM PHOS 1 PKT PDR PO SCH (15:00)
[2019-08-06 16:00] VITALS: BP 118/43
--- NOTE | 2019-08-06 16:55 | NUR ---
PT'S BLOOD GLUCOSE IS 169. WILL ADMINISTER 2 UNITS SLIDING SCALE INSULIN PER MD ORDER.
--- NOTE | 2019-08-06 19:22 | NUR ---
PT ENDORSED TO FLIGHT RADIO OPERATOR IN STABLE CONDITION
--- NOTE | 2019-08-06 19:30 | NUR ---
RECEIVED REPORT FROM AM RN IN BED . GT FEEDING IN PLACE AT 15 ML/H . TO INCREASE TOLERATED WITH INCREMENTS OF 10 ML PER AM RN RT SUGAR HIGH LATELY. NEEDS WILL BE ANTICIPATED AND WILL BE MET. FAMILY MEMBER PRESENT VISITING. TELEMETRY MONITORING. BED RAILS PADDED FOR SEIZURE PRECAUTIONS. CALL LIGHT WITH IN REACH. NEEDS WILL BE ANTICIPATED AND WILL BE MET. TOTAL CARE RT GENERALIZED WEAKNESS. PT. DX. OF CHANGE OF LOC, SOB AND CHF EXACERBATION. WITH CARMONA CATHETER IN PLACE AND DRAINING WELL WITH YELLOW URINE. FAMILY MEMBERS NO COMPLAINTS DONE. ENCOURAGED TO CALL FOR ANY HELP THEY MAY NEED.
[2019-08-06 20:00] VITALS: BP 132/49
--- NOTE | 2019-08-06 20:01 | NUR ---
RECEIVED PT ON 2L NC WITH SP02 96%. COARSE BREATH SOUNDS. PT IN NO RESPIRATORY DISTRESS. TX GIVEN ORDERED WITH NO ADVERSE REACTION. WILL CONTINUE TO MONITOR PT
[2019-08-06] MEDS: FINASTERIDE 5 MG TAB PO SCH (21:10)
[2019-08-06] MEDS: PIPERACILLIN/TAZOBACTAM 3.375 GM in DEXTROSE 5% 50 ML IV SCH (21:13)
[2019-08-07] VITALS: BP 130/55
--- NOTE | 2019-08-07 00:22 | NUR ---
ENDORSED TO CHARGE NURSE FOR CONTINUITY OF CARE. PT. BEING TURNED AT THIS TIME WITH PILLOW SUPPORT TO PRESSURE AREAS. AWAKE.
--- NOTE | 2019-08-07 00:30 | NUR ---
RECEIVED REPORTOF PT IN STABLE CONDITION.RESP IS UNLABORED W/O2 AT 2L/NC.VS STABLE.TELE IS ON AND SHOWING SR W/ST DEP. NO S/S OF ANY DISTRESS NOTED NOW.CALL LIGHT IN REACH.F/C PATENT AND DRAINING CLEAR YELLOW COLOR URINE.WILL CONT.MONITORING.
[2019-08-07 04:00] VITALS: BP 125/45
--- NOTE | 2019-08-07 04:59 | NUR ---
SLEEPING.HR IS SR W/OCC.PVC AND ST DEP. RESP.UNLABORED.NO DISTRESS NOTED AT THIS TIME.CALL LIGHT IN REACH.
[2019-08-07] MEDS ORDERED: PIPERACILLIN/TAZOBACTAM 3.375 GM VIAL IV ONE (05:47)
[2019-08-07] MEDS: PIPERACILLIN/TAZOBACTAM 3.375 GM in DEXTROSE 5% 50 ML IV SCH ×3 (05:58→20:17)
[2019-08-07] MEDS: BLOOD GLUCOSE MONITORING 1 DEV DEV FS SCH ×4 (06:00→20:15)
[2019-08-07] MEDS: INSULIN LISPRO SLIDING SCALE 100 UNITS/ML VIAL SUBQ PRN ×4 (06:03→20:26)
[2019-08-07] MEDS: ALBUTEROL SULFATE/IPRATROPIU 3 ML SOL IH SCH ×3 (06:21→19:15)
--- NOTE | 2019-08-07 07:46 | NUR ---
REPORT GIVEN TO AM RN .PT IS IN STABLE CONDITION.BS THIS MB=259,10 UNITS HUMALOG SUB.Q GIVEN.THIS AM HIS ZOSYN DROPPED AND BROKEN ANOTHER ZOSYN TOOK OUT FROM [facility] AND GAVE TO PT.
--- NOTE | 2019-08-07 07:47 | NUR ---
RECIEVE REPORT FROM NIGHT NURSE. PT IN STABLE CONDITION, SAFETY MEASURES IN PLACE, CALL LIGHT WITHIN REACH.
[2019-08-07 08:00] VITALS: BP 134/59
[2019-08-07 08:01] LABS: HEMATOCRIT 34.8 % (36-52); HEMOGLOBIN 10.8 g/dL (12.0-18.0); LYMPHOCYTES # (AUTO) 0.3 K/uL (2.0-11.5); LYMPHOCYTES % (AUTO) 4.2 % (20.5-51.1); MEAN CORPUSCULAR HEMOGLOBIN 30 pg (27-31); MEAN CORPUSCULAR HGB CONC 31 g/dL (33-37); MONOCYTES # (AUTO) 0.3 K/uL (0.8-1.0); MONOCYTES % (AUTO) 3.4 % (1.7-9.3); NEUTROPHILS # (AUTO) 7.3 K/uL (1.8-7.7); NEUTROPHILS % (AUTO) 92.4 % (42.2-75.2); PLATELET COUNT (AUTO) 280 K/uL (140-450); RED BLOOD CELL COUNT(AUTO) 3.62 MIL/uL (4.20-6.10); RED CELL DISTRIBUTION WIDTH 15.6 % (11.6-13.7); WHITE BLOOD COUNT (AUTO) 7.9 K/uL (4.8-10.8)
[2019-08-07 08:38] LABS: MAGNESIUM 2.1 mg/dL (1.8-2.4)
[2019-08-07 08:50] LABS: CARBON DIOXIDE 35.4 mmol/L (21-32); CHLORIDE 107 mmol/L (98-107); CREATININE 0.8 mg/dL (0.7-1.3); GLUCOSE 376 mg/dL (74-106); POTASSIUM 4.4 mmol/L (3.5-5.1); SODIUM SERUM 148 mmol/L (136-145); UREA NITROGEN, BLOOD 21 mg/dL (7-18)
--- NOTE | 2019-08-07 10:00 | NUR ---
PT RECEIVED MEDICATION, CHANGED FEEDING TUBE FOOD, PT TOLERATING FEEDING WITH NO RESIDUAL. PT TOLERATED MEDICATION WITH NO SIGNS OF DISTRESS. PT IS STABLE, CALL LIGHT WITHIN REACH.
[2019-08-07] MEDS: LACTULOSE 20 GM/30 ML UDC PO SCH ×2 (10:41→20:17)
[2019-08-07] MEDS: METOPROLOL 25 MG TAB PO SCH ×2 (10:43→20:16)
[2019-08-07] MEDS: DILTIAZEM 30 MG TAB PO SCH (10:44)
[2019-08-07] MEDS: DIGOXIN 0.125 MG TAB PO SCH (10:44)
[2019-08-07] MEDS: ASPIRIN 81 MG TAB.CHEW PO SCH (10:45)
[2019-08-07] MEDS: RIVAROXABAN 10 MG TAB PO SCH (10:46)
[2019-08-07] MEDS: levETIRAcetam 100 MG/ML ORASYR GT SCH ×2 (10:48→20:16)
[2019-08-07] MEDS: methylPREDNISolone SS 40 MG/ML VIAL IVP SCH (10:49)
[2019-08-07] MEDS: NACL 0.9% 1,000 ML IV SCH (10:49)
[2019-08-07] MEDS: FUROSEMIDE 40 MG/4 ML VIAL IVP SCH (10:49)
[2019-08-07 12:00] VITALS: BP 118/59
[2019-08-07] MEDS ORDERED: LACTULOSE 20 GM/30 ML UDC PO SCH (12:00)
--- NOTE | 2019-08-07 12:54 | NUR ---
INFORMED DR. ESPINOSA ABOUT PT'S SODIUM LEVEL OF 148. ORDER CHANGE OF IV FLUID TO 0.45 NS. WILL CARRY OUT THE ORDER ONCE ORDER RECEIVED.
[2019-08-07] MEDS: NACL 0.45% 1,000 ML IV SCH (13:17)
--- NOTE | 2019-08-07 15:00 | NUR ---
PT STABLE IN BED, DR. RICARDO WANTS THE PT WEANED AND TURNED DOWN O2 TO WEAN PT. WILL CONTINUE TO MONITOR. PT IS STABLE WITHOUT SIGNS OF DISTRESS. CALL LIGHT WITHIN REACH.
--- NOTE | 2019-08-07 15:39 | NUR ---
Insulation Inspector Note: Late entry for today 10:05am I called and spoke with patient's daughter Lupe Austin , she stated her brother Jakob Cronin is the one who is listed on patient's Advance Directive. I called and spoke with Jakob. He stated Lupe should not be listed as "person to notify" it should be him. Patient's face sheet currently has Lupe listed as "person to notify" on face sheet. He told me every time patient is admitted at [facility], hospital staff always list Lupe as "person to notify" and he has told hospital staff it should be him. I told him I will notify Admitting Dept of this. I reviewed patient's Advance Directive in chart, Jakob is listed as agent. I told Marie from Admitting Dept what Jakob told me and requested for her to please list Jakob as "person to notify". Jakob is aware of 's order for snf placement. He would like patient to be transferred to [facility] if possible, he stated patient was at that facility before. He is aware health insurance plan will be contacted regarding snf authorization and if snf is approved contracted snfs will be contacted. I faxed 's snf order to [facility], fax [phone]
--- NOTE | 2019-08-07 15:48 | NUR ---
Yeast Tender Note: I called Call Centre Supervisor Marie from [facility] , recording states to call "hand almond blancher nurse" during weekends . I called and spoke with Ruma from Answering Service at [facility] , she stated she will contact Call Centre Supervisor Lidia and request for Lidia to call me back. I received a call from Call Centre Supervisor Lidia , she stated she will find out if they can approve snf placement and call me back. I informed her patient's son Jakob is requesting [facility] , she stated [facility] is also contracted with [facility] . I faxed inquiries to both [facility] and [facility].
[2019-08-07 16:00] VITALS: BP 140/60
--- NOTE | 2019-08-07 16:28 | NUR ---
Polymer Engineer Note: I received a call from Dining Room Attendant Cafeteria Lidia at [facility], she stated they will not authorize snf placement and would like to know if patient can be discharged with oral medication or be discharged with home health services for Zosyn and have family be taught how to administer Zosyn. Lidia stated they are contracted with [place] infusion services and with [facility] . Per , patient cannot be discharged with oral medication, needs Zosyn. I called and spoke with patient's son Jakob , he stated he does not feel comfortable administering Zosyn even if he is taught by home health nursing staff. He stated other family members also do not feel comfortable administering Zosyn. Per Lidai, patient can remain hospitalized today and we will not receive a denial letter from [facility] for today. She stated [place] might be able to provide medication pump for patient so that it is easier to administer Zosyn at home. made aware Case Management/Joint Cutter Dept will continue to follow up with discharge plan tomorrow. Per Radha from [facility], they are not able to accept referral because Zosyn is every Q8 and their nursing staff is not able to teach patient's family how to administer Zosyn. Addendum: 08/07/19 at 1645 by Glenna Damico SS Patient's son Jakob is aware Case Management/Joint Cutter Dept will continue to follow up on discharge plan tomorrow.
--- NOTE | 2019-08-07 17:20 | NUR ---
PT RESTING IN BED, ON 1L 02 NC, PT IS STABLE, NO SIGNS OF DISTRESS. CALL LIGHT WITHIN REACH.
--- NOTE | 2019-08-07 19:00 | NUR ---
GAVE REPORT TO NIGHT NURSE FOR CONTINUITY OF CARE. PT IS STABLE, NO SIGNS OF DISTRESS, SAFETY MEASURES IN PLACE.
--- NOTE | 2019-08-07 19:01 | NUR ---
RECEIVED BEDSIDE REPORT FROM DAY SHIFT NURSE. GT FEEDING RUNNING MD ORDERED. FAMILY MEMBER AT BEDSIDE. TELEMETRY MONITORING. IV SITE ON RH 24G, PATENT, INTACT AND ASYMPTOMATIC. BED RAILS PADDED FOR SEIZURE PRECAUTIONS. TOTAL CARE RT GENERALIZED WEAKNESS. PT. DX. OF CHANGE OF LOC, SOB AND CHF EXACERBATION. WITH CARMONA CATHETER IN PLACE AND DRAINING WELL WITH YELLOW URINE. BED IN LOW POSITION, CALL LIGHT WITHIN REACH.
[2019-08-07 19:07] LABS: ANION GAP 9.3 (8-16); CARBON DIOXIDE 36.6 mmol/L (21-32); CHLORIDE 107 mmol/L (98-107); CREATININE 0.9 mg/dL (0.7-1.3); POTASSIUM 3.9 mmol/L (3.5-5.1); SODIUM SERUM 149 mmol/L (136-145); UREA NITROGEN, BLOOD 22 mg/dL (7-18)
[2019-08-07 19:18] LABS: GLUCOSE 407 mg/dL (74-106)
[2019-08-07 19:24] LABS: ANION GAP 8.6 (8-16); CHLORIDE 101 mmol/L (98-107); MAGNESIUM 2.1 mg/dL (1.8-2.4); PHOSPHORUS 2.6 mg/dL (2.5-4.9); POTASSIUM 3.6 mmol/L (3.5-5.1); SODIUM SERUM 141 mmol/L (136-145)
[2019-08-07 19:25] LABS: CREATININE 0.7 mg/dL (0.7-1.3); GLUCOSE 243 mg/dL (74-106); UREA NITROGEN, BLOOD 10 mg/dL (7-18)
--- NOTE | 2019-08-07 19:38 | NUR ---
RECEIVED PATIENT ON 2L NASAL CANNULA, SPO2 94%. SCHEDULED BREATHING TREATMENT ADMINISTERED. TOLERATED TX WELL WITHOUT ADVERSE SIDE EFFECTS. NASOTRACHEALLY SUCTIONED PATIENT WITHOUT INCIDENT. SUCTIONED LARGE AMOUNT OF THICK YELLOW SECRETIONS. NO ACUTE RESPIRATORY DISTRESS NOTED. WILL CONTINUE TO MONITOR. FAMILY AT BEDSIDE.
[2019-08-07 20:00] VITALS: BP 122/55
[2019-08-07] MEDS: FINASTERIDE 5 MG TAB PO SCH (20:15)
--- NOTE | 2019-08-07 20:26 | NUR ---
GIVEN KEPPRA, ZOSYN, LOPRESSOR, AND PROSCAR. HELD CEPHULAC D/T DIARRHEA. BS CHECKED, 338, ADMINISTERED INSULIN SLIDING SCALE. PT TOLERATED WELL.
--- NOTE | 2019-08-07 22:21 | NUR ---
PT SLEEPING IN BED. NO ACUTE DISTRESS NOTED.
[2019-08-08] VITALS: BP 128/59
--- NOTE | 2019-08-08 00:05 | NUR ---
VS CHECKED, WITHIN PT'S BASELINE. WILL CONTINUE TO MONITOR.
[2019-08-08] MEDS: ALBUTEROL SULFATE/IPRATROPIU 3 ML SOL IH PRN (01:58)
--- NOTE | 2019-08-08 02:11 | NUR ---
PRN BREATHING TREATMENT ADMINISTERED. TOLERATED TX WELL WITHOUT ADVERSE SIDE EFFECTS. ORALLY SUCTIONED MODERATE AMOUNT OF THICK, YELLOW SECRETIONS. ORAL CARE DONE. NO ACUTE RESPIRATORY DISTRESS NOTED AT THIS TIME. WILL CONTINUE TO MONITOR.
--- NOTE | 2019-08-08 02:39 | NUR ---
PT SLEEPING IN BED. NO ACUTE DISTRESS NOTED.
[2019-08-08 04:00] VITALS: BP 142/59
[2019-08-08] MEDS: PIPERACILLIN/TAZOBACTAM 3.375 GM in DEXTROSE 5% 50 ML IV SCH ×3 (05:03→21:08)
--- NOTE | 2019-08-08 05:03 | NUR ---
GIVEN ZOSYN MD ORDERED. PT TOLERATED WELL.
[2019-08-08] MEDS: NACL 0.45% 1,000 ML IV SCH ×2 (05:35→21:00)
[2019-08-08] MEDS: INSULIN LISPRO SLIDING SCALE 100 UNITS/ML VIAL SUBQ PRN ×4 (05:59→21:07)
[2019-08-08] MEDS: BLOOD GLUCOSE MONITORING 1 DEV DEV FS SCH ×4 (05:59→21:09)
--- NOTE | 2019-08-08 05:59 | NUR ---
BS CHECKED, 349, ADMINISTERED INSULIN MD ORDERED. PT TOLERATED WELL.
--- NOTE | 2019-08-08 06:40 | NUR ---
PT SLEEPING IN BED. NO ACUTE DISTRESS NOTED.
--- NOTE | 2019-08-08 07:08 | NUR ---
RECEIVE REPORT FROM NIGHT NURSE, FOR CONTINUITY OF CARE, PT ASLEEP IN BED, IV SITE HAND 24G, RUNNING 0.45NS AT 60ML/H. G-TUBE FEEDING IS OSMOLITE AT 55ML/H WITH WATER FLUSH OF 240 Q6H, PT IS ON OXYGEN 2L NC, PT IS STABLE, NO SIGNS OF DISTRESS, SAFETY MEASURES IN PLACE. CALL LIGHT WITHIN REACH.
[2019-08-08] MEDS: ALBUTEROL SULFATE/IPRATROPIU 3 ML SOL IH SCH ×3 (07:12→20:00)
[2019-08-08 07:14] LABS: BASOPHILS % (AUTO) 0.1 % (0.0-2.0); HEMATOCRIT 36.4 % (36-52); HEMOGLOBIN 11.2 g/dL (12.0-18.0); LYMPHOCYTES % (AUTO) 15.2 % (20.5-51.1); MEAN CORPUSCULAR HEMOGLOBIN 30 pg (27-31); MEAN CORPUSCULAR HGB CONC 31 g/dL (33-37); MEAN CORPUSCULAR VOLUME 96.7 fL (80-94); MONOCYTES # (AUTO) 0.5 K/uL (0.8-1.0); MONOCYTES % (AUTO) 7.8 % (1.7-9.3); NEUTROPHILS # (AUTO) 5.2 K/uL (1.8-7.7); NEUTROPHILS % (AUTO) 76.9 % (42.2-75.2); PLATELET COUNT (AUTO) 280 K/uL (140-450); RED BLOOD CELL COUNT(AUTO) 3.76 MIL/uL (4.20-6.10); WHITE BLOOD COUNT (AUTO) 6.7 K/uL (4.8-10.8)
[2019-08-08 07:25] LABS: ANION GAP 10.2 (8-16); CARBON DIOXIDE 36.2 mmol/L (21-32); CHLORIDE 106 mmol/L (98-107); CREATININE 0.8 mg/dL (0.7-1.3); GLUCOSE 358 mg/dL (74-106); POTASSIUM 3.4 mmol/L (3.5-5.1); SODIUM SERUM 149 mmol/L (136-145); UREA NITROGEN, BLOOD 22 mg/dL (7-18)
[2019-08-08 07:27] LABS: MAGNESIUM 2.1 mg/dL (1.8-2.4); PHOSPHORUS 2.7 mg/dL (2.5-4.9)
[2019-08-08 08:00] VITALS: BP 127/60
--- NOTE | 2019-08-08 09:05 | NUR ---
SCREEN FOR LOW VAHE SCALE AT RISK: CONTINUE FOR ALL PRESSURE ULCER INTERVENTIONS -KEEP SKIN DRY AND CLEAN AT ALL TIMES -OFFLOAD BILATERAL HEELS BY PLACING PILLOWS UNDER CALVES UNLESS OTHERWISE CONTRAINDICATED -PRESSURE REDISTRIBUTION SURFACE THERAPY -TURN AND REPOSITION Q2H, OFFLOAD SACRALCOCCYX BY TURNING RIGHT AND LEFT -MONITOR SKIN CONDITION EACH TIME PT IS REPOSITIONS -CONTINUE TO FOLLOW RD RECOMMENDATIONS
[2019-08-08] MEDS: DILTIAZEM 30 MG TAB PO SCH (10:19)
[2019-08-08] MEDS: predniSONE 20 MG TAB PO SCH (10:20)
[2019-08-08] MEDS: DIGOXIN 0.125 MG TAB PO SCH (10:20)
[2019-08-08] MEDS: ASPIRIN 81 MG TAB.CHEW PO SCH (10:21)
[2019-08-08] MEDS: METOPROLOL 25 MG TAB PO SCH ×2 (10:21→21:09)
[2019-08-08] MEDS: levETIRAcetam 100 MG/ML ORASYR GT SCH ×2 (10:22→21:08)
[2019-08-08] MEDS: LACTULOSE 20 GM/30 ML UDC PO SCH ×2 (10:23→21:00)
[2019-08-08] MEDS: FUROSEMIDE 40 MG/4 ML VIAL IVP SCH (10:23)
[2019-08-08] MEDS: RIVAROXABAN 10 MG TAB PO SCH (10:26)
[2019-08-08] MEDS: INSULIN LANTUS 100 UNITS/ML 10 ML VIAL SUBQ SCH (10:27)
--- NOTE | 2019-08-08 10:30 | NUR ---
GAVE PT G-TUBE AM MEDICATION, WASHED PT MOUTH, PT TOLERATED IT WELL. PT IS STABLE, NO SIGNS OF DISTRESS. CALL LIGHT WITHIN REACH. FAMILY AT THE BEDSIDE.
--- NOTE | 2019-08-08 11:02 | NUR ---
Ceo Note: I faxed 's order for [facility] for In[facility]z to [facility], fax . I called Water And Sewer Systems Supervisor [facility] , no answer, left message. I faxed referral to [facility], phone number , fax . Addendum: 08/08/19 at 1258 by Glenna VASQUES I called Water And Sewer Systems Supervisor Marie from [facility] again , no answer, left message.
--- NOTE | 2019-08-08 11:10 | NUR ---
STARTED PT FEEDING TUBE OF OSMOLITE. PT IS TOLERATING WELL. PT IS STABLE, CALL LIGHT WITHIN REACH
[2019-08-08 12:00] VITALS: BP 120/52
[2019-08-08] MEDS ORDERED: LACTULOSE 20 GM/30 ML UDC GT SCH (13:00)
[2019-08-08] MEDS ORDERED: INSULIN LANTUS 100 UNITS/ML 10 ML VIAL SUBQ SCH (13:00)
--- NOTE | 2019-08-08 13:15 | NUR ---
FEEDING MACHINE ALARMING. CHECK RESIDUAL, 1ML RESIDUAL. CHANGED OUT THE BAG AND RESUME FEEDING. PT IS TOLERATING FEEDING WELL. PT IS STABLE, NO SIGNS OF DISTRESS.
--- NOTE | 2019-08-08 13:17 | NUR ---
Yard Pipe Grader Note: I called and spoke with Nisha from [facility] , I explained to her I was attempting to speak with Yard Laborer Marie from [facility] again , Nisha transferred me to Marie. Per Marie, she cannot listen to her voicemails at this time due to phone issues. She stated she received MD's home health order for Invanz and she will contact a home infusion pharmacy and make arrangements. I informed her [facility] , fax is able to provide nursing staff for 5 days. She is aware plan is to discharge patient today 08/08/19. She told me she will contact me once she arranges home infusion services. Per Inga from [facility], phone number , fax , they are able to provide nursing staff for the 5 days.
--- NOTE | 2019-08-08 13:35 | NUR ---
Rehab Technician Note: I called and spoke with welfare case worker Marie from [facility] / , she stated she will be the one arranging home infusion pharmacy services for patient. She stated she will contact [place] infusion pharmacy.
--- NOTE | 2019-08-08 14:10 | NUR ---
WAS CLEANING THE IV SITE, THE IV CAME OUT. IV INTACT. ASKED CHARGE NURSE TO PUT IN IV. WILL FOLLOW UP. ADMINISTER LACTULOSE, PT TOLERATED WELL. PT IS STABLE
--- NOTE | 2019-08-08 14:13 | NUR ---
Called PERICO Murillo at [facility]. She confirmed that they have been receiving the clinicals. I gave her a verbal update. She said no determination has been made yet and the case is under review.
[2019-08-08] MEDS ORDERED: INV1I IV (14:32)
[2019-08-08] MEDS ORDERED: PRED10TA5 PO (14:37)
[2019-08-08] MEDS ORDERED: PRED20TA5 PO (14:37)
[2019-08-08] MEDS ORDERED: PRED5TAB7 PO (14:37)
[2019-08-08 15:37] LABS: ANION GAP 7.4 (8-16); CARBON DIOXIDE 38.2 mmol/L (21-32); CHLORIDE 104 mmol/L (98-107); CREATININE 0.8 mg/dL (0.7-1.3); GLUCOSE 332 mg/dL (74-106); POTASSIUM 3.6 mmol/L (3.5-5.1); SODIUM SERUM 146 mmol/L (136-145); UREA NITROGEN, BLOOD 20 mg/dL (7-18)
[2019-08-08 16:00] VITALS: BP 120/52
--- NOTE | 2019-08-08 16:47 | NUR ---
Finance Business Manager Note: Per Jordy from [facility] infusion pharmacy / , they barely received referral for Invanz from Alex and they are going to review referral and insurance eligibility. I told Jordy Johnson had provided me with authorization [id number] and provided Jordy with auth. Jordy told me I can contact their representatives at for updates.
--- NOTE | 2019-08-08 17:00 | NUR ---
Regional Engineer Note: I called and spoke with Tony from [facility] infusion pharmacy / , he stated they still need to verify patient's insurance edibility, he told me this can take between 30 minutes to 1 hour. I requested Tony to please contact Charge Nurse Thanh and provide her with update. I provided Tony with telemetry's phone number. Charge Nurse Thanh made aware. Per Tony, they have authorization from [employer] [id number] . Addendum: 08/08/19 at 1712 by Glenna VASQUES Per Inga from [facility], she will call nurses' station in 1 hour and inquire if patient will be discharge today or not. Inga already has authorization from [employer] [id number]
--- NOTE | 2019-08-08 17:35 | NUR ---
EARLENE FROM [facility] SAID THAT THEIR NOT ABLE TO GET THE PATIENT TONIGHT DUE TO PENDING INSURANCE APPROVAL. SHE SAID SHE WILL FOLLOW UP TOMORROW MORNING. WILL CONTINUE TO MONITOR.
--- NOTE | 2019-08-08 18:00 | NUR ---
PT CARMONA CATHETER NOTED TO HAVE HEMATURIA, CALLED RESIDENT CELL AND LEFT A MESSAGE TO THE PT'S DOCTOR. WILL ENDORSE THIS INFORMATION TO NIGHT NURSE TO FOLLOW UP. PT IS STABLE, NO SIGNS OF DISTRESS.
--- NOTE | 2019-08-08 19:15 | NUR ---
RECEIVED BEDSIDE REPORT FROM DAY SHIFT NURSE. GT FEEDING RUNNING MD ORDERED. FAMILY MEMBER AT BEDSIDE. TELEMETRY MONITORING. IV SITE ON RH 24G, PATENT, INTACT AND ASYMPTOMATIC. BED RAILS PADDED FOR SEIZURE PRECAUTIONS. TOTAL CARE RT GENERALIZED WEAKNESS. PT. WITH CARMONA CATHETER IN PLACE. BED IN LOW POSITION, CALL LIGHT WITHIN REACH.
[2019-08-08 20:00] VITALS: BP 132/52
[2019-08-08] MEDS: FINASTERIDE 5 MG TAB PO SCH (21:08)
--- NOTE | 2019-08-08 21:09 | NUR ---
GIVEN KEPPRA, ZOSYN, LOPRESSOR, AND PROSCAR. HELD CEPHULAC D/T DIARRHEA. BS CHECKED, 303. GIVEN INSULIN SLIDING SCALE. PT TOLERATED WELL.
--- NOTE | 2019-08-08 23:55 | NUR ---
VS CHECKED, WITHIN PT'S BASELINE. WILL CONTINUE TO MONITOR.
[2019-08-09] VITALS: BP 123/55
[2019-08-09] MEDS: NACL 0.45% 1,000 ML IV SCH (01:00)
--- NOTE | 2019-08-09 02:05 | NUR ---
PT SLEEPING IN BED. NO ACUTE DISTRESS NOTED.
[2019-08-09 04:00] VITALS: BP 128/66
[2019-08-09] MEDS: PIPERACILLIN/TAZOBACTAM 3.375 GM in DEXTROSE 5% 50 ML IV SCH ×3 (05:21→21:00)
--- NOTE | 2019-08-09 05:21 | NUR ---
GIVEN ZOSYN MD ORDERED. PT TOLERATED WELL.
[2019-08-09] MEDS: BLOOD GLUCOSE MONITORING 1 DEV DEV FS SCH ×4 (06:05→21:00)
[2019-08-09] MEDS: INSULIN LISPRO SLIDING SCALE 100 UNITS/ML VIAL SUBQ PRN ×4 (06:07→22:24)
--- NOTE | 2019-08-09 06:12 | NUR ---
BS CHECKED, 91. NO INSULIN COVERAGE NEEDED.
--- NOTE | 2019-08-09 06:40 | NUR ---
PT LYING IN BED. NO ACUTE DISTRESS NOTED. PT IN STABLE CONDITION.
[2019-08-09 06:53] LABS: BASOPHILS % (AUTO) 0.1 % (0.0-2.0); EOSINOPHILS # (AUTO) 0.1 K/uL (0-0.4); EOSINOPHILS % (AUTO) 1.2 % (0.0-4.0); HEMATOCRIT 34.3 % (36-52); HEMOGLOBIN 10.8 g/dL (12.0-18.0); LYMPHOCYTES # (AUTO) 1.2 K/uL (2.0-11.5); LYMPHOCYTES % (AUTO) 16.9 % (20.5-51.1); MEAN CORPUSCULAR HEMOGLOBIN 30 pg (27-31); MEAN CORPUSCULAR HGB CONC 32 g/dL (33-37); MEAN CORPUSCULAR VOLUME 94.8 fL (80-94); MONOCYTES # (AUTO) 0.4 K/uL (0.8-1.0); MONOCYTES % (AUTO) 5.2 % (1.7-9.3); NEUTROPHILS # (AUTO) 5.6 K/uL (1.8-7.7); NEUTROPHILS % (AUTO) 76.6 % (42.2-75.2); PLATELET COUNT (AUTO) 262 K/uL (140-450); RED BLOOD CELL COUNT(AUTO) 3.63 MIL/uL (4.20-6.10); RED CELL DISTRIBUTION WIDTH 15.5 % (11.6-13.7); WHITE BLOOD COUNT (AUTO) 7.3 K/uL (4.8-10.8)
[2019-08-09] MEDS: ALBUTEROL SULFATE/IPRATROPIU 3 ML SOL IH SCH ×3 (06:54→18:58)
[2019-08-09 07:13] LABS: CARBON DIOXIDE 35.1 mmol/L (21-32); CHLORIDE 104 mmol/L (98-107); CREATININE 0.7 mg/dL (0.7-1.3); GLUCOSE 223 mg/dL (74-106); POTASSIUM 3.1 mmol/L (3.5-5.1); SODIUM SERUM 144 mmol/L (136-145); UREA NITROGEN, BLOOD 17 mg/dL (7-18)
--- NOTE | 2019-08-09 07:20 | NUR ---
RECEIVED PT FROM NIGHT NURSE. PT WITH EYES CLOSED, AROUSABLE TO SPEECH, AAOX1. NO DISTRESS NOTED. RESPIRATIONS EVEN AND UNLABORED ON O2 2L NC. IV IN PLACE PATENT AND ASYMPTOMATIC IN R AC 22G INFUSING PER ORDER. SKIN INTACT. CARMONA IN [place]. G TUBE FEEDING OSMOLITE 1.5 INFUSING PER ORDER. BED IN LOW POSITION. SAFETY MEASURES IN PLACE. CALL LIGHT WITHIN REACH. WILL CONTINUE TO MONITOR.
[2019-08-09 07:22] LABS: PHOSPHORUS 3.1 mg/dL (2.5-4.9)
[2019-08-09 07:52] VITALS: BP 148/55
[2019-08-09] MEDS: predniSONE 20 MG TAB PO SCH (08:33)
[2019-08-09] MEDS: DIGOXIN 0.125 MG TAB PO SCH (08:34)
[2019-08-09] MEDS: FUROSEMIDE 40 MG/4 ML VIAL IVP SCH (08:34)
[2019-08-09] MEDS: DILTIAZEM 30 MG TAB PO SCH (08:35)
[2019-08-09] MEDS: METOPROLOL 25 MG TAB PO SCH ×2 (08:35→22:09)
[2019-08-09] MEDS: ASPIRIN 81 MG TAB.CHEW PO SCH (08:36)
[2019-08-09] MEDS: RIVAROXABAN 10 MG TAB PO SCH (08:37)
[2019-08-09] MEDS: LACTULOSE 20 GM/30 ML UDC PO SCH ×2 (08:37→22:09)
[2019-08-09] MEDS: levETIRAcetam 100 MG/ML ORASYR GT SCH ×2 (08:38→22:08)
--- NOTE | 2019-08-09 08:52 | NUR ---
MEDICATIONS ADMINISTERED PER ORDER. PT TOELRATED WELL. NO DISTRESS NOTED. FLACC 0. RESIDUALS 0ML. WILL CONTINUE TO MONITOR.
[2019-08-09] MEDS: INSULIN LANTUS 100 UNITS/ML 10 ML VIAL SUBQ SCH (08:57)
--- NOTE | 2019-08-09 10:25 | NUR ---
Digital Imaging Technician Note: I called and spoke with Supervisor Paint Department Marie from [facility] / , I explained to her that I followed up with [place] home infusion pharmacy / yesterday 08/08/19 and they were not able to accept referral because they still needed to check patient's insurance eligibility benefits. I told her that I had provided [place] with the authorization she had provided me with. Per Marie, we will not receive a denial letter for yesterday 08/08/19 and she will contact Ekaterina today and call me back in 1 hour to provide me with an update, Supervisor Paint Department Audrey made aware.
--- NOTE | 2019-08-09 11:12 | NUR ---
PT REPOSITIONED AT THIS TIME, HYDRAGUARD APPLIED TO BUTTOCKS AND G TUBE CLEANSED AND DRESSING CHANGED. NO DISTRESS NOTED. WILL CONTINUE TO MONITOR.
[2019-08-09] MEDS ORDERED: HYDRAGUARD CREAM TP ONE (11:29)
[2019-08-09] MEDS ORDERED: LACTULOSE 20 GM/30 ML UDC PO SCH (11:38)
[2019-08-09] MEDS ORDERED: metFORMIN 500 MG TAB PO SCH (11:53)
[2019-08-09 12:00] VITALS: BP 116/49
[2019-08-09] MEDS ORDERED: METF1000 PO (12:05)
[2019-08-09] MEDS: KCL 20 MEQ/WATER INJ PREMIX 200 ML IV SCH ×2 (12:31→15:15)
--- NOTE | 2019-08-09 13:42 | NUR ---
MEDICATIONS ADMINISTERED PER. ORDER PT TOLERATED WELL. WILL CONTINUE TO MONITOR.
--- NOTE | 2019-08-09 14:24 | NUR ---
Merchandise Flow Team Leader Note: Late entry for today at 1:45 pm: I called and spoke with Finisher Special Stocks Marie from [facility] / , she apologized and stated she has not called [place] home infusion pharmacy / to follow up with referral. She told me she will call right after she hangs up with me, Finisher Special Stocks Audrey made aware.
--- NOTE | 2019-08-09 14:27 | NUR ---
Isotope Hydrologist Note: I called and spoke with Dining Chair Seat Cushion Trimmer Marie from [facility] / , no answer, left message. I called [facility] infusion pharmacy / and spoke with Jordy. Per Jordy, she will send an urgent message to product sales representative assigned to referral and request for product sales representative to call me back. I provided Jordy with my contact information.
--- NOTE | 2019-08-09 14:50 | NUR ---
Senior Oracle Database Administrator Note: I called and spoke with Director Talent Acquisition Marie from [facility] / , she stated she just finished speaking with Regional Director Of Admissions Lilibeth at [place] [facility] / regarding delay with referral. Marie stated Lilibeth told her that since patient has a SR (senior) health plan they have to refer to Medicare part D. Marie told me it should not take [place] this long to verify patient's health insurance benefits. Per Marie, is planning to contact [place] once again regarding this issue and call me back in 30 minutes and provide me with an update. Marie reported she will make sure patient is discharged home today with home infusion services. Addendum: 08/09/19 at 1703 by Glenna Damico SS I called and spoke with after hours Hazel [facility] Director Talent Acquisition Marie from [facility] / , Director Talent Acquisition Marie from [facility] / , she stated she just finished speaking with Regional Director Of Admissions Lilibeth at [place] [facility] / regarding delay with referral. Marie stated Lilibeth told her that since patient has a SR (senior) health plan they have to refer to Medicare part D. Marie told me it should not take [place] this long to verify patient's health insurance benefits. Per Marie, is planning to contact [facility] once again regarding this issue and call me back in 30 minutes and provide me with an update. Marie reported she will make sure patient is discharged home today with home infusion services.
--- NOTE | 2019-08-09 14:50 | NUR ---
08/09/19 RD FOLLOW UP COMPLETED PLEASE REFER TO NUTRITION ASSESSMENT UNDER CARE ACTIVITY FOR ESTIMATED NUTRITIONAL NEEDS. 1. CONTINUE OSOMOLITE 1.5 TO 55 ML/HR X 24 HR -THIS WILL PROVIDE 1320 ML OF VOLUME, 1980 KCAL, 83 GM PROTEIN WHICH MEETS 100% OF ESTIMATED NEEDS 2. RECOMMEND FREE WATER FLUSH [address] TO FOLLOW-UP 2-3 DAYS, HIGH RISK JANICE LABOY RD
--- NOTE | 2019-08-09 15:32 | NUR ---
VITAL SIGNS TAKEN AT THIS TIME. PT IN STABLE CONDITION. NO DISTRESS NOTED. FLACC 0. WILL CONTINUE TO MONITOR.
[2019-08-09 16:00] VITALS: BP 148/61
[2019-08-09] MEDS: metFORMIN 500 MG TAB PO SCH (16:33)
--- NOTE | 2019-08-09 17:03 | NUR ---
Host/Hostess Ground Note: I called and spoke with after hours business case analyst Hazel from [facility] (Supervisor Spring Up Marie from [facility] / is no longer available) I informed Hazel of my conversation with Marie. Hazel stated she cannot assist me with this case and that I need to speak with Supervisor Spring Up Marie tomorrow. She stated [facility] will not receive a denial letter for today's patient's hospitalization. Per Mita from [place] there is an issue with patient's eligibility benefits and they cannot accept referral at this time, I informed of above information.
--- NOTE | 2019-08-09 17:43 | NUR ---
PT REPOSITIONED AT THIS TIME. HYDRAGUARD APPLIED TO BUTTOCKS AND SCROTUM. NO DISTRESS NOTED. WILL CONTINUE TO MONITOR.
--- NOTE | 2019-08-09 19:07 | NUR ---
REPORT GIVEN TO NIGHT NURSE FOR CONTINUITY OF CARE.
--- NOTE | 2019-08-09 19:10 | NUR ---
RECEIVED FROM AM RN IN BED WITH FAMILY MEMBERS VISITING. ISOLATION PRECAUTIONS. CALL LIGHT WITH IN REACH. NEEDS WILL BE ANTICIPATED AND WILL BE MET. WILL BE TURNED Q 2H. NO RESTLESSNESS NOTED AT THIS TIME. TELEMETRY MONITORING. GT IN PLACE . HOB UP 30 DEGREES FOR ASPIRATION PRECAUTIONS AND WITH PADDED BED RAILS FOR SEIZURE PRECAUTIONS.
[2019-08-09 19:29] LABS: HEMATOCRIT 35.2 % (36-52); MEAN CORPUSCULAR HEMOGLOBIN 30 pg (27-31); MEAN CORPUSCULAR HGB CONC 31 g/dL (33-37); MEAN CORPUSCULAR VOLUME 96.9 fL (80-94); PLATELET COUNT (AUTO) 223 K/uL (140-450); RED BLOOD CELL COUNT(AUTO) 3.63 MIL/uL (4.20-6.10); RED CELL DISTRIBUTION WIDTH 15.8 % (11.6-13.7); WHITE BLOOD COUNT (AUTO) 7.4 K/uL (4.8-10.8)
[2019-08-09 19:30] LABS: BASOPHILS % (AUTO) 0.7 % (0.0-2.0); EOSINOPHILS # (AUTO) 0.2 K/uL (0-0.4); EOSINOPHILS % (AUTO) 3.1 % (0.0-4.0); LYMPHOCYTES # (AUTO) 0.9 K/uL (2.0-11.5); LYMPHOCYTES % (AUTO) 12.6 % (20.5-51.1); MONOCYTES # (AUTO) 0.7 K/uL (0.8-1.0); MONOCYTES % (AUTO) 8.9 % (1.7-9.3); NEUTROPHILS # (AUTO) 5.5 K/uL (1.8-7.7); NEUTROPHILS % (AUTO) 74.7 % (42.2-75.2)
[2019-08-09 20:00] VITALS: BP 136/56
[2019-08-09] MEDS: FINASTERIDE 5 MG TAB PO SCH (22:09)
--- NOTE | 2019-08-09 22:30 | NUR ---
PT. CHECKED. TURNED BY CNAS AND KEPT DRY AND CLEAN. NO RESTLESSNESS NOTED. GT FEEDING INFUSING WELL. WILL BE TURNED Q 2H. AFEBRILE.
--- NOTE | 2019-08-10 | NUR ---
SLEEPING . NO RESTLESSNESS. GT INFUSING WELL. NO RESIDUAL AT THIS TIME. NEEDS WILL BE ANTICIPATED AND WILL BE MET. TOTAL CARE.
[2019-08-10] MEDS: NACL 0.45% 1,000 ML IV SCH ×2 (01:19→22:32)
--- NOTE | 2019-08-10 01:21 | NUR ---
SLEEPING . TURNED TO SIDES Q 2H. NEEDS A NTICIPATED AND WILL BE MET. FLACC 0-. TELEMETRY MONITORING.
--- NOTE | 2019-08-10 02:20 | NUR ---
MD SHARMA / INFECTION SPECIALIST IN HERE TO SEE PT.
[2019-08-10 03:41] VITALS: BP 123/59
[2019-08-10] MEDS: PIPERACILLIN/TAZOBACTAM 3.375 GM in DEXTROSE 5% 50 ML IV SCH ×3 (05:28→22:14)
[2019-08-10] MEDS: BLOOD GLUCOSE MONITORING 1 DEV DEV FS SCH ×4 (05:30→21:00)
[2019-08-10] MEDS: INSULIN LISPRO SLIDING SCALE 100 UNITS/ML VIAL SUBQ PRN ×4 (05:31→22:20)
[2019-08-10 07:26] LABS: BASOPHILS % (AUTO) 0.1 % (0.0-2.0); EOSINOPHILS # (AUTO) 0.3 K/uL (0-0.4); EOSINOPHILS % (AUTO) 4.2 % (0.0-4.0); HEMATOCRIT 37.2 % (36-52); HEMOGLOBIN 11.5 g/dL (12.0-18.0); LYMPHOCYTES # (AUTO) 1.2 K/uL (2.0-11.5); LYMPHOCYTES % (AUTO) 14.9 % (20.5-51.1); MEAN CORPUSCULAR HEMOGLOBIN 30 pg (27-31); MEAN CORPUSCULAR HGB CONC 31 g/dL (33-37); MEAN CORPUSCULAR VOLUME 95.2 fL (80-94); MONOCYTES # (AUTO) 0.4 K/uL (0.8-1.0); MONOCYTES % (AUTO) 4.9 % (1.7-9.3); NEUTROPHILS # (AUTO) 6.1 K/uL (1.8-7.7); NEUTROPHILS % (AUTO) 75.9 % (42.2-75.2); PLATELET COUNT (AUTO) 275 K/uL (140-450); RED BLOOD CELL COUNT(AUTO) 3.91 MIL/uL (4.20-6.10); RED CELL DISTRIBUTION WIDTH 15.1 % (11.6-13.7)
[2019-08-10] MEDS: ALBUTEROL SULFATE/IPRATROPIU 3 ML SOL IH SCH ×3 (07:26→19:00)
[2019-08-10 08:00] VITALS: BP 100/41
[2019-08-10 08:19] LABS: ANION GAP 4.2 (8-16); CARBON DIOXIDE 37.3 mmol/L (21-32); CHLORIDE 104 mmol/L (98-107); CREATININE 0.7 mg/dL (0.7-1.3); GLUCOSE 213 mg/dL (74-106); POTASSIUM 3.5 mmol/L (3.5-5.1); SODIUM SERUM 142 mmol/L (136-145); UREA NITROGEN, BLOOD 20 mg/dL (7-18)
[2019-08-10] MEDS: DILTIAZEM 30 MG TAB PO SCH ×2 (09:00→10:51)
[2019-08-10] MEDS: METOPROLOL 25 MG TAB PO SCH ×3 (09:00→21:00)
[2019-08-10] MEDS: metFORMIN 500 MG TAB PO SCH ×2 (09:44→17:49)
[2019-08-10] MEDS: DIGOXIN 0.125 MG TAB PO SCH (09:47)
[2019-08-10] MEDS: ASPIRIN 81 MG TAB.CHEW PO SCH (09:48)
[2019-08-10] MEDS: predniSONE 20 MG TAB PO SCH (09:48)
[2019-08-10] MEDS: levETIRAcetam 100 MG/ML ORASYR GT SCH ×2 (09:50→22:08)
[2019-08-10] MEDS: LACTULOSE 20 GM/30 ML UDC PO SCH ×2 (09:50→22:07)
[2019-08-10] MEDS: FUROSEMIDE 40 MG/4 ML VIAL IVP SCH (09:51)
--- NOTE | 2019-08-10 09:59 | NUR ---
Public Health Dentist Note: I called and spoke with Visually Impaired Teacher Marie from [facility] / , she stated a prescription was sent by a physician for Invanz to [facility] pharmacy and therefore [place] [facility] infusion pharmacy / was not able to continue processing referral for Invanz. Marie stated since this was a problem between [facility] and [facility], [facility] will not receive a denial letter for patient's hospitalization. She stated she is going to continue to contact [facility] to resolve this issue. Addendum: 08/10/19 at 1637 by Glenna Damico Late entry for 08/09/19: Per Visually Impaired Teacher Marie, they cannot contact any other home infusion company besides [facility]. I spoke with patient's son Jakob he is in agreement with [facility] and [facility].
[2019-08-10] MEDS: RIVAROXABAN 10 MG TAB PO SCH (10:28)
[2019-08-10] MEDS: INSULIN LANTUS 100 UNITS/ML 10 ML VIAL SUBQ SCH (10:29)
[2019-08-10 10:50] VITALS: BP 132/78
--- NOTE | 2019-08-10 10:58 | NUR ---
WITH ORDERS FOR DISCHARGE. ON PROCESS. FAMILY IS AT BEDSIDE AND MADE AWARE
[2019-08-10] MEDS ORDERED: PRED20TA5 PO (12:13)
--- NOTE | 2019-08-10 13:28 | NUR ---
High School Principal Note: Arcenio Pantoja from [facility] infusion pharmacy , they will deliver Invanz to patient's home today, aware patient needs Invanz for 3 more days. Addendum: 08/10/19 at 1331 by Glenna Damico SS I informed Inga from [facility], phone number , patient will be discharged today. made aware [facility] will deliver Invanz to patient's home today. Addendum: 08/10/19 at 0124 by Glenna Damico SS I spoke with patient's son Jakob, he is aware patient will be discharged today and knows [facility] will deliver Invanz to patient's home today and [facility] will provide nursing staff to administer Invanz.
--- NOTE | 2019-08-10 15:39 | NUR ---
WITH ORDERS FOR DISCHARGE. FOR PICC LINE INSERTION FOR THE CONTINUATION OF THE IV ANTIBIOTICS, TELEPHONE CONSENT DONE BY THE SON ELE AUGUSTUR TEL [phone]/
--- NOTE | 2019-08-10 15:47 | NUR ---
CONTACTED [facility] I Like My Waitress [phone], ABLE TO SPEAK TO DURAN MICHAEL. SHE STATED IF THE IV ANTIBIOTIC IS ONLY FOR 3 MORE DAYS, PERIPHERAL IV IS OK. DR. GARVIN AND CHARGE NURSE LIZY MADE AWARE. JACKIE GARNER MADE AWARE. Addendum: 08/11/19 at 1154 by Audrey Cook CM RECEIVED A CALL FROM PERICO LMA OF [facility], UPDATED HER OF PATIENT'S CONDITION. SHE STATED THEIR OUT PATIENT DEPARTMENT RECEIVED A CALL FROM THE PATIENT'S SON INQUIRING ABOUT HOSPICE AND PALLIATIVE CARE. SHE ALSO STATED THEY CAN ARRANGE IT OUT PATIENT AND WILL NOT BE A REASON TO HOLD OFF [place].
[2019-08-10 16:00] VITALS: BP 114/72
--- NOTE | 2019-08-10 19:07 | NUR ---
DISCHARGE ON HOLD THE PATIENT DESATURATED, ORDERED. Addendum: 08/10/19 at 1913 by Agency Kevin PRITCHARD RN IVF ON HL PATIENT WITH DISCHARGE ORDERS BUT WAS ORDERED ON HOLD NOW. WILL CLARIFY IF THE PATIENT NEEDS IV FLUIDS THE PATIENT IS TOLERATING THE FEEDING.
--- NOTE | 2019-08-10 19:10 | NUR ---
RECEIVED PT. FROM AM RN IN BED WITH FAMILY MEMBERS IN HERE VISITING. CARE PLANS FOR THE NIGHT EXPLAINED TO THEM. D/C ON HOLD PENDING OBSERVATION OF 02 SAT WITH AND WITHOUT 02 PROVIDED. CALL LIGHT WITH IN REACH AND BED ALARM ON. IVF SITE TO RIGHT HAND INTACT AND NO S/S OF INFILTRATION. WILL BE TURNED Q 2H AND NEEDS ANTICIPATED.
--- NOTE | 2019-08-10 21:24 | NUR ---
RECIEVED PT ON 3L NC, SPO2 95%. PT HAS A HX OF COPD AND DR WANTED ON RA. TITRATED DOWN TO RA SPO2 93%. PT IN NO RESP DISTRESS AND [facility] WOULD NOT LET ME PULL OUT MEDS BC IT SAID PT WAS DISCHARGED. WILL CONT. TO MONITOR PT.
[2019-08-10] MEDS ORDERED: LACTULOSE 20 GM/30 ML UDC ONE (21:54)
--- NOTE | 2019-08-10 22:00 | NUR ---
PT. TURNED Q 2H BY LONE LEAD LINEMAN. TOTAL CARE. ROOM AIR 93 %. FOR DISCHARGE PLANS.
[2019-08-10] MEDS ORDERED: FINASTERIDE 5 MG TAB ONE (22:01)
[2019-08-10] MEDS ORDERED: METOPROLOL 50 MG TAB ONE (22:01)
[2019-08-10] MEDS ORDERED: levETIRAcetam 100 MG/ML ORASYR ONE (22:01)
[2019-08-10 22:05] VITALS: BP 123/59
[2019-08-10] MEDS: FINASTERIDE 5 MG TAB PO SCH (22:08)
--- NOTE | 2019-08-11 | NUR ---
D/C PLAN FOR TOMORROW RT SON CAN NOT PICK PT. UP TONIGHT. TOTAL CARE. NEEDS ANTICIPATED AND WILL BE MET. TURNED Q 2H. HOB UP 30 DEGREES FOR ASPIRATION PRECAUTION RT GT FEEDING.
[2019-08-11 00:11] VITALS: BP 116/57
--- NOTE | 2019-08-11 01:15 | NUR ---
SLEEPING AT THIS TIME. TURNED Q 2H. TOTAL CARE.
--- NOTE | 2019-08-11 03:45 | NUR ---
PT. TURNED BY CNAS Q 2H. PILLOW SUPPORT TO PRESSURE AREAS. HOB UP 30 DEGREES FOR ASPIRATION PRECAUTIONS. NO N/V NOTED. RESIDUAL CHECK AT THIS TIME 10 ML. F/C IN PLACE. IVF SITE INTACT AND WITH GOOD BLOOD RETURN.
[2019-08-11] MEDS: PIPERACILLIN/TAZOBACTAM 3.375 GM in DEXTROSE 5% 50 ML IV SCH (04:32)
--- NOTE | 2019-08-11 06:46 | NUR ---
PT. TURNED TO SIDES Q 2H. PILLOW SUPPORT TO PRESSURE AREAS. NEEDS ANTICIPATED AND MET. 02 SAT AT THIS TIME ON ROOM AIR IS 93 %. LATEST AM BLOOD SUGAR CHECK PER FINGERSTICK IS 128. NO INSULIN COVERAGE ADMINISTERED.
[2019-08-11] MEDS ORDERED: BLOOD GLUCOSE MONITORING 1 DEV DEV FS SCH (07:00)
--- NOTE | 2019-08-11 07:15 | NUR ---
RECEIVED PT FROM NIGHT NURSE. PT IN BED, AWAKE. RESPIRATIONS EVEN AND UNLABORED ON ROOM AIR, 92% O2 SAT. IV IN PLACE, PATENT ASYMPTOMATIC AND INFUSING PER ORDER. NO DISTRESS NOTED, FLACC 0. BED IN LOW POSITION. SAFETY MEASURES IN PLACE. CALL LIGHT WITHIN REACH. WILL CONTINUE TO MONITOR.
[2019-08-11] MEDS: ALBUTEROL SULFATE/IPRATROPIU 3 ML SOL IH SCH (08:41)
[2019-08-11] MEDS: levETIRAcetam 100 MG/ML ORASYR GT SCH (09:00)
[2019-08-11] MEDS ORDERED: LACTULOSE 20 GM/30 ML UDC ONE (09:05)
[2019-08-11] MEDS ORDERED: DIGOXIN 0.125 MG TAB ONE (09:06)
[2019-08-11] MEDS ORDERED: METOPROLOL 50 MG TAB ONE (09:06)
[2019-08-11] MEDS ORDERED: FUROSEMIDE 20 MG/2 ML VIAL IVP ONE (09:06)
[2019-08-11] MEDS ORDERED: ASPIRIN 81 MG TAB.CHEW ONE (09:06)
[2019-08-11] MEDS ORDERED: DILTIAZEM 30 MG TAB ONE ×2 (09:06→09:15)
[2019-08-11] MEDS ORDERED: RIVAROXABAN 10 MG TAB ONE (09:07)
[2019-08-11] MEDS: RIVAROXABAN 10 MG TAB PO SCH (09:09)
[2019-08-11] MEDS: DIGOXIN 0.125 MG TAB PO SCH (09:11)
[2019-08-11] MEDS: ASPIRIN 81 MG TAB.CHEW PO SCH (09:11)
[2019-08-11] MEDS: predniSONE 20 MG TAB PO SCH (09:11)
[2019-08-11] MEDS: metFORMIN 500 MG TAB PO SCH (09:12)
[2019-08-11] MEDS: DILTIAZEM 30 MG TAB PO SCH (09:16)
[2019-08-11] MEDS: LACTULOSE 20 GM/30 ML UDC PO SCH (09:17)
[2019-08-11] MEDS: INSULIN LANTUS 100 UNITS/ML 10 ML VIAL SUBQ SCH (09:18)
[2019-08-11] MEDS: METOPROLOL 25 MG TAB PO SCH (09:22)
[2019-08-11] MEDS: FUROSEMIDE 40 MG/4 ML VIAL IVP SCH (09:23)
--- NOTE | 2019-08-11 09:37 | NUR ---
MEDICATIONS ADMINISTERED PER ORDER. PT TOLERATED WELL. NO DISTRESS NOTED. WILL CONTINUE TO MONITOR.
[2019-08-11] MEDS ORDERED: LANTUS SUBQ (10:04)
[2019-08-11] MEDS: NACL 0.45% 1,000 ML IV SCH (10:39)
[2019-08-11 10:49] VITALS: BP 112/49
[2019-08-11] MEDS ORDERED: PRED20TA5 PO (11:05)
--- NOTE | 2019-08-11 11:09 | NUR ---
CARMONA CATHETER REMOVED, PT TOLERATED WELL. PT CHANGED AND REPOSITIONED, LINENS CHANGED. PT READY FOR PHYSICIAN INTERNIST. NO DISTRESS NOTED. WILL CONTINUE TO MONITOR.
--- NOTE | 2019-08-11 12:30 | NUR ---
PT DISCHARGED AT THIS TIME. DISCHARGE AND FOLLOWUP TEACHINGS GIVEN. PRESCRIBED MEDICATION TEACHING GIVEN. FAMILY MEMBER VERBALIZED UNDERSTANDING. DISCHARGE PAPERWORK SIGNED AND GIVEN TO PT. PT LEFT WITH R HAND IV 20G FOR HOME ANTIBIOTICS. ASSIGNED TO [email or web address] [facility]. ID BANDS REMOVED. RESPIRATIONS EVEN AND UNLABORED ON ROOM AIR. FLACC 0. PT ESCORTED OFF THE UNIT IN A WHEELCHAIR ACCOMPANIED BY FAMILY MEMBERS. LEFT HOME IN A PRIVATE VEHICLE.
== END 2019-08-11 12:54 | disposition home or self-care (01) | DRG 177 ==
LOC: MED 13:41 → MTU 18:14
PROVIDERS: ADMIT Family Medicine; ATTEND Family Medicine
DX: J69.0 Pneumonitis due to inhalation of food and vomit (principal); I50.43 Acute on chronic combined systolic (congestive) and diastolic (congestive) heart failure; J96.22 Acute and chronic respiratory failure with hypercapnia; J96.21 Acute and chronic respiratory failure with hypoxia; E43 Unspecified severe protein-calorie malnutrition; I69.351 Hemiplegia and hemiparesis following cerebral infarction affecting right dominant side; E87.0 Hyperosmolality and hypernatremia; Z16.24 Resistance to multiple antibiotics; J15.5 Pneumonia due to Escherichia coli; J84.9 Interstitial pulmonary disease, unspecified; K59.00 Constipation, unspecified; N40.0 Benign prostatic hyperplasia without lower urinary tract symptoms; J43.9 Emphysema, unspecified; E86.0 Dehydration; E11.65 Type 2 diabetes mellitus with hyperglycemia; T38.0X5A Adverse effect of glucocorticoids and synthetic analogues, initial encounter; K72.90 Hepatic failure, unspecified without coma; E02 Subclinical iodine-deficiency hypothyroidism; B96.20 Unspecified Escherichia coli [E. coli] as the cause of diseases classified elsewhere; E11.9 Type 2 diabetes mellitus without complications; G40.909 Epilepsy, unspecified, not intractable, without status epilepticus; I11.0 Hypertensive heart disease with heart failure; I48.91 Unspecified atrial fibrillation; Z68.25 Body mass index [BMI] 25.0-25.9, adult; Z79.899 Other long term (current) drug therapy; Z90.49 Acquired absence of other specified parts of digestive tract; Z87.891 Personal history of nicotine dependence; Z93.1 Gastrostomy status; Z79.4 Long term (current) use of insulin; Z87.440 Personal history of urinary (tract) infections; Z83.3 Family history of diabetes mellitus; Z83.49 Family history of other endocrine, nutritional and metabolic diseases; Z80.42 Family history of malignant neoplasm of prostate; Z82.49 Family history of ischemic heart disease and other diseases of the circulatory system; Y92.89 Other specified places as the place of occurrence of the external cause
CPT/HCPCS: 36415; 70450; 71045; 80048; 80053; 81001; 82140; 82150; 82948; 83036; 83690; 83735; 83880; 84100; 84134; 84436; 84443; 84484; 85025; 85379; 85610; 85651; 85730; 86140; 86738; 87070; 87081; 87205; 89220; 93005; 94640; 96374; 99285; J0696; J1644; J1815; J1940; J1956; J2543; J2920; J3480; J3490; J7030; J7060; J7512; J7620; Q0092

== ENCOUNTER 2019-08-25 15:42 | Emergency (ER) | payer OTHER ==
[~2019-08-25] VITALS: Ht 170.2 cm; Wt 77.1 kg
[~2019-08-25 15:42] MED LIST changes: +BUDE1AER2 IH; -LACT1TAB47 PO; +LANTUS SUBQ; -LEVO750T2 PO; +METF1000 PO; -METH4TAB3 PO; -METR500T1 PO; +PRED10TA5 PO; +PRED20TA5 PO; +PRED5TAB7 PO
[2019-08-25 16:24] VITALS: BP 122/53
--- NOTE | 2019-08-25 18:08 | NUR ---
PT W/C ASSISTED TO BED 8.
--- NOTE | 2019-08-25 18:13 | NUR ---
89/M BIB SON FOR G-TUBE MALFUNCTION X LAST NIGHT. FAMILY GIVES PT FEEDING BY GRAVITY, PER SON THE FEEDING FORMULA DOES DOES NOT INFUSE IN WITH GRAVITY. NO PAIN. PT SITTING IN WHEELCHAIR. HX--CVA, G-TUBE
--- NOTE | 2019-08-25 18:29 | NUR ---
INFUSED 30 ML STERILE WATER THROUGH G-TUBE PRIMITIVO VALVE VIA GRAVITY. NO OBSTRUCTION TO FLOW.
--- NOTE | 2019-08-25 19:16 | NUR ---
RECIVED REPORT FROM GENARO PRITCHARD. TRANSFER OF CARE.
--- NOTE | 2019-08-25 19:22 | NUR ---
REPORT TO CHERISE PRITCHARD. TRANSFER OF CARE AT THIS TIME.
--- NOTE | 2019-08-25 19:48 | NUR ---
PT IN W/C, SON AT BEDSIDE. PT NONVERBAL AND UNABLE TO EXPRESS PAIN. SON DENIES GRIMACING OR SIGNS OF PAIN AT HOME. PT ABDOMEN IS ROUND, FRIM, WITH MILD DISTENTION. STOMA SITE APPEARS RED, AND WARM TO TOUCH. BOWEL SOUNDS PRESENT +4 QUADRANTS. SON STATES LAST BOWEL MOVEMENT 08/14/19. GT CHECKED PLACEMENT WITH 20 CC OF AIR. ATTEMPTED TO ASPIRATE RISIDUAL MET WITH RESISTANCE. ATTEMPTED TO ADMINISTER FORMULA VIA GRAVITY BUT WAS UNSUCCESSFUL. 20 CC OF FORMULA WAS ABLE TO BE GIVEN VIA PUSHING PLUNGER. NO SIGNS OF DISTRESS OR PAIN AT THIS TIME.
--- NOTE | 2019-08-25 20:58 | NUR ---
DR. FORMAN AT BEDSIDE.
--- NOTE | 2019-08-25 21:07 | NUR ---
20F G-TUBE REPLACED BY . CARMEN FILLED WITH 15ML NS. CONFIRMATION OF PLACEMENT WITH ASPIRATION OF GASTRIC CONTENTS, BROWN IN COLOR. 30CC OF FORMULA WIXED WITH WATER GIVEN VIA GRAVITY WITH NO RESISTANCE. X-RAY WILL BE ORDERED FOR G-TUBE CONFORMATION.
--- NOTE | 2019-08-25 21:24 | NUR ---
PT TRANSFED TO BED FROM W/C VIA 3 PERSON TRANSFER. PT RESTING IN BED AWAITING X-RAY. PT SON AT BEDSIDE.
--- NOTE | 2019-08-25 21:40 | NUR ---
X-RAY AT BEDSIDE. Addendum: 08/25/19 at 2147 by [email or web address] X-RAY AT BEDSIDE. CONTRAST FOR G-TUBE GIVEN.
[2019-08-25 22:17] VITALS: BP 126/63
--- NOTE | 2019-08-25 22:19 | NUR ---
Patient discharged with v/s stable. Written and verbal after care instructions given and explained TO SON. Patient's SON verbalized understanding. Wheel Chair Assisted with by caregiver. All questions addressed prior to discharge. D/C PT. Advised to follow up with PMD.
== END 2019-08-25 22:15 | disposition home or self-care (01) ==
LOC: MED 15:42
DX: K94.23 Gastrostomy malfunction (principal); J44.9 Chronic obstructive pulmonary disease, unspecified; I10 Essential (primary) hypertension; Z86.73 Personal history of transient ischemic attack (TIA), and cerebral infarction without residual deficits; Z79.899 Other long term (current) drug therapy
CPT/HCPCS: 43762; 99284

== ENCOUNTER 2019-09-14 17:39 | Inpatient (IN) | payer OTHER ==
[~2019-09-14] VITALS: Ht 170.2 cm; Wt 76.2 kg
[2019-09-14 17:43] VITALS: BP 136/71
--- NOTE | 2019-09-14 17:44 | NUR ---
DR VELEZ EVALUATING PT AT BEDSIDE
[2019-09-14] MEDS ORDERED: NACL 0.9% 1,500 ML IV SCH (17:49)
--- NOTE | 2019-09-14 18:16 | NUR ---
89/M BIBA WITH CC OF LEFT SIDED GAZE ON/OFF X 4 DAYS. USUALLY PT HAS NO PREFERENCE. AT BASELINE PT IS NONVERBAL, WILL TRACK FACES WHEN TOUCHED, NONAMBULATORY. EMS FOUND PT TO BE 90% RA WITH BILATERAL RHONCHI, ADMINISTERED ALBUTEROL NEB IN ROUTE. BILATERAL RHONCHI THROUGHOUT. PT SEEN GAZING MOSTLY TO RIGHT BUT WAS SEEN TO GAZE STRAIGHT AHEAD WELL. DOES NOT OBEY COMMANDS. SEEN MOVING LT EXTREMITY AT THIS TIME. HX- CVA, SEIZURE, DM NKA Addendum: 09/15/19 at 2216 by PEACE RIGHT SIDED GAZE
--- NOTE | 2019-09-14 18:28 | NUR ---
ASKED HOUSE SUP TO BRING MORE STRAIGHT CATH KITS.
--- NOTE | 2019-09-14 18:28 | NUR ---
ESOL TEACHER ASSISTANT AT BEDSIDE
--- NOTE | 2019-09-14 18:37 | NUR ---
RT AT BEDSIDE FOR ABG DRAW
--- NOTE | 2019-09-14 19:06 | NUR ---
REPORT TO MARTINE PRITCHARD, TRANSFER OF CARE AT THIS TIME.
[2019-09-14 19:09] LABS: BASOPHILS # (AUTO) 0.1 K/uL (0.00-0.22); BASOPHILS % (AUTO) 0.8 % (0.0-2.0); EOSINOPHILS # (AUTO) 0.1 K/uL (0-0.4); EOSINOPHILS % (AUTO) 0.9 % (0.0-4.0); HEMATOCRIT 30.2 % (36-52); HEMOGLOBIN 9.3 g/dL (12.0-18.0); LYMPHOCYTES # (AUTO) 2.7 K/uL (2.0-11.5); LYMPHOCYTES % (AUTO) 24.5 % (20.5-51.1); MEAN CORPUSCULAR HEMOGLOBIN 26 pg (27-31); MEAN CORPUSCULAR HGB CONC 31 g/dL (33-37); MEAN CORPUSCULAR VOLUME 86.1 fL (80-94); MONOCYTES # (AUTO) 1.1 K/uL (0.8-1.0); MONOCYTES % (AUTO) 9.7 % (1.7-9.3); NEUTROPHILS % (AUTO) 64.1 % (42.2-75.2); PLATELET COUNT (AUTO) 397 K/uL (140-450); RED BLOOD CELL COUNT(AUTO) 3.51 MIL/uL (4.20-6.10); RED CELL DISTRIBUTION WIDTH 16.2 % (11.6-13.7); WHITE BLOOD COUNT (AUTO) 10.8 K/uL (4.8-10.8)
--- NOTE | 2019-09-14 19:10 | NUR ---
REPORT RECEIVED FROM MACHO LAM. ASSUME CARE AT THIS TIME.
--- NOTE | 2019-09-14 19:22 | NUR ---
PT TO CT SCAN AND CXR VIA RSIOUX FALLS.
[2019-09-14 19:38] LABS: ACETAMINOPHEN < 0.5 ug/ml (10-30); SALICYLATE < 2.8 mg/dL (2.8-20.0)
[2019-09-14 19:40] LABS: ALBUMIN 2.6 g/dL (3.4-5.0); ASPARTATE AMINOTRANSFERASE 27 U/L (15-37); CARBON DIOXIDE 31.9 mmol/L (21-32); CREATININE 0.7 mg/dL (0.7-1.3); GLUCOSE 166 mg/dL (74-106); TOTAL BILIRUBIN 0.6 mg/dL (0.0-1.0); UREA NITROGEN, BLOOD 10 mg/dL (7-18)
[2019-09-14 19:47] LABS: APPEARANCE,URINE CLEAR (CLEAR); BILIRUBIN,URINE NEGATIVE (NEGATIVE); BLOOD, URINE NEGATIVE (NEGATIVE); COLOR,URINE YELLOW (YELLOW); LEUKOCYTE ESTERASE ,URINE TRACE (NEGATIVE); NITRITE, URINE NEGATIVE (NEGATIVE); PH,URINE 6.5 (5.0-9.0); UGLUCOSE NEGATIVE (NEGATIVE)
[2019-09-14 19:50] LABS: CHLORIDE 91 mmol/L (98-107); POTASSIUM 3.9 mmol/L (3.5-5.1); SODIUM SERUM 129 mmol/L (136-145)
[2019-09-14 19:52] LABS: RBC,URINE 0 /HPF (0-5); WBC,URINE 0-5 /HPF (0-5)
[2019-09-14 20:00] LABS: BARBITURATE, URINE NEG. ng/ml (NEG <=200); BENZODIAZEPINE, URINE NEG. ng/mL (NEG <=200); CANNABINOID, URINE NEG. ng/mL (NEG <=50); COCAINE, URINE NEG. ng/mL (NEG <=300); OPIATE, URINE NEG. ng/mL (NEG <=2000); PHENCYCLIDINE SCREEN,URINE NEG. ng/mL (NEG <=25)
--- NOTE | 2019-09-14 20:00 | NUR ---
PT SEEN WITH EYES CLOSED. AROUSABLE TO TOUCH. VISIBLE CHEST RISE AND FALL NOTED. FAMILY AT BEDSIDE. BEDRAIL X2UP. SEIZURE IN PLACE. WILL CONTINUE TO MONITOR.
[2019-09-14] MEDS ORDERED: LEVOFLOXACIN 750 MG/D5W PREMIX 150 ML IV ONE (20:50)
[2019-09-14] MEDS ORDERED: NACL 0.9% 1,500 ML IV ONE (20:50)
[2019-09-14] MEDS ORDERED: DEXT 5% / NACL 0.45% 1,000 ML IV SCH (21:39)
[2019-09-14] MEDS ORDERED: NACL 0.9% 1,000 ML IV SCH (21:39)
[2019-09-14] MEDS ORDERED: HYDROcodone/APAP 7.5/325 MG 1 TAB PO PRN (21:40)
[2019-09-14] MEDS ORDERED: ACETAMINOPHEN 325 MG TAB PO PRN (21:40)
[2019-09-14] MEDS ORDERED: ONDANSETRON 4 MG/2 ML VIAL IVP PRN (21:40)
--- NOTE | 2019-09-14 22:21 | NUR ---
PT SEEN WITH EYES OPEN. PT NOTED GAZING TO THE RIGHT THEN GAZE RETURNS TO NORMAL FORWARD. PRECAUTIONS IN PLACE. BEDRAILS X2 UP. WILL CONTINUE TO MONITOR.
--- NOTE | 2019-09-14 23:00 | NUR ---
IV TO LT AC INFILTRATED. IV REMOVED. NEW IV TO LT HAND INSERTED.
[2019-09-14 23:20] VITALS: BP 114/49
--- NOTE | 2019-09-14 23:20 | NUR ---
REPORT RECEIVED FROM ED NURSE AT BEDSIDE. PT IN STABLE CONDITION. AAOX1-2. BOARD UPDATED. NO COMPLAINTS OF PAIN. NO SOB ON 3L O2 VIA NC. AFEBRILE. PT IS BEDBOUND DUE TO CVA WITH R-SIDED WEAKNESS. PT HAS GTUBE. IV SITE INFILTRATED SOON PATIENT ARRIVED ON UNIT. ED NURSE ATTEMPTED TWICE FOR NEW IV. NO ACCESS AT THIS TIME. ED NURSE SAID SHE WILL NOTIFY ED CHARGE NURSE AND WILL ATTEMPT TO INSERT NEW IV. SKIN WARM, DRY, AND INTACT WITH NO OPEN WOUNDS. BED LOCKED IN LOW POSITION. CALL TAYLOR WITHIN REACH. SAFETY PRECAUTION IN PLACE. ALL NEEDS MET AT THIS TIME.
--- NOTE | 2019-09-14 23:25 | NUR ---
Patient will be admitted to care of DR. RICHEY. Admited to [facility]. Will go to room 120A. Belongings list completed. Report to MACHO RAZA . ZAINAB OF CARE AT THIS TIME.
--- NOTE | 2019-09-14 23:42 | NUR ---
CRITICAL LAB VALUE CALLED IN FOR LACTIC ACID 2.4. NOT NOTIFIED. VALUE IS TRENDING DOWN.
[2019-09-15] VITALS: BP 125/50
[2019-09-15 00:11] LABS: PHOSPHORUS 3.6 mg/dL (2.5-4.9); THYROID STIMULATING HORMONE 2.86 uIU/mL (0.34-3.74)
[2019-09-15 00:25] LABS: PROTHROMBIN TIME 9.4 secs (10.8-13.4)
--- NOTE | 2019-09-15 01:30 | NUR ---
PT LAYING IN BED. NO S/S OF DISTRESS NOTED. RESPIRATIONS EVEN, UNLABORED, AND WNL. WILL CONTINUE TO MONITOR.
--- NOTE | 2019-09-15 03:45 | NUR ---
PT SLEEPING COMFORTABLY BUT AROUSABLE. NO S/S OF DISTRESS NOTED. RESPIRATIONS EVEN, UNLABORED, AND WNL. WILL CONTINUE TO MONITOR.
[2019-09-15] MEDS ORDERED: DEXT 5% / NACL 0.9% 500 ML IV SCH (04:40)
[2019-09-15] MEDS ORDERED: KEP500L GT (04:52)
[2019-09-15] MEDS ORDERED: FAMO-90 PO (04:52)
[2019-09-15] MEDS ORDERED: METO25TA PO (04:52)
[2019-09-15] MEDS ORDERED: ALBUTEROL SULFATE/IPRATROPIU 3 ML SOL IH PRN (05:20)
[2019-09-15] MEDS: PIPERACILLIN/TAZOBACTAM 3.375 GM in DEXTROSE 5% 50 ML IV SCH ×4 (06:00→23:11)
--- NOTE | 2019-09-15 06:55 | NUR ---
PT AWAKE AND ALERT IN BED. PT IN STABLE CONDITION.
--- NOTE | 2019-09-15 07:05 | NUR ---
RECEIVED REPORT FROM ASSISTANT CASINO SHIFT MANAGER NURSE LUZ MARINA. PT ORIENTED X1, CC ALOC, WILL NEED REMINDERS AND REORIENTATION. PT HAS NO IV SITE AT THIS POINT, PHYSICIAN AWARE, PICC LINE TO BE INSERTED TODAY. RESPIRATIONS EVEN AND UNLABORED ON O2 3L VIA N/C. ABD SOFT, ACTIVE BS, G-TUBE SITE NOTED, DRESSING CLEAN, INTACT, DRY. PT IS ON FALL RISK PRECAUTIONS, ASPIRATION PRECAUTIONS AND SEIZURE PRECAUTIONS, SAFETY MEASURES IN PLACE, CALL LIGHT WITHIN REACH. REVIEWED POC WITH PT, PT WILL NEED FREQUENT REMINDERS.
[2019-09-15 08:00] VITALS: BP 132/63
[2019-09-15 08:04] LABS: ANION GAP 10.7 (8-16); CARBON DIOXIDE 31.4 mmol/L (21-32); CHLORIDE 98 mmol/L (98-107); GLUCOSE 116 mg/dL (74-106); POTASSIUM 4.1 mmol/L (3.5-5.1); SODIUM SERUM 136 mmol/L (136-145); UREA NITROGEN, BLOOD 8 mg/dL (7-18)
[2019-09-15 08:05] LABS: CREATININE 0.6 mg/dL (0.7-1.3)
[2019-09-15 08:06] LABS: BASOPHILS # (AUTO) 0.1 K/uL (0.00-0.22); BASOPHILS % (AUTO) 0.6 % (0.0-2.0); EOSINOPHILS % (AUTO) 0.6 % (0.0-4.0); HEMATOCRIT 30.8 % (36-52); HEMOGLOBIN 9.6 g/dL (12.0-18.0); LYMPHOCYTES # (AUTO) 1.3 K/uL (2.0-11.5); LYMPHOCYTES % (AUTO) 14.2 % (20.5-51.1); MEAN CORPUSCULAR HEMOGLOBIN 27 pg (27-31); MEAN CORPUSCULAR HGB CONC 31 g/dL (33-37); MEAN CORPUSCULAR VOLUME 86.3 fL (80-94); MONOCYTES # (AUTO) 1.1 K/uL (0.8-1.0); MONOCYTES % (AUTO) 12.5 % (1.7-9.3); NEUTROPHILS # (AUTO) 6.5 K/uL (1.8-7.7); NEUTROPHILS % (AUTO) 72.1 % (42.2-75.2); PLATELET COUNT (AUTO) 347 K/uL (140-450); RED BLOOD CELL COUNT(AUTO) 3.57 MIL/uL (4.20-6.10); RED CELL DISTRIBUTION WIDTH 16.6 % (11.6-13.7)
--- NOTE | 2019-09-15 08:45 | NUR ---
UNABLE TO ADMINISTER MEDICATIONS AT THIS TIME D/T UNAVAILABILITY OF ADAPTER AND SYRINGES FOR BETHANY G-TUBE. REQUESTED RN NARENDRA TO BRING SUPPLIES TO UNIT.
[2019-09-15] MEDS ORDERED: DIGOXIN 0.125 MG TAB PO SCH (09:00)
[2019-09-15] MEDS ORDERED: NON-FORMULARY ITEM (Budesonide/Formoterol Fumarate* (Symbicort 80-4.5 Mcg Inhaler*) 2 PUFF IH SCH (09:00)
[2019-09-15] MEDS ORDERED: FAMOTIDINE 20 MG TAB PO SCH (09:00)
--- NOTE | 2019-09-15 09:08 | NUR ---
PATIENT HAS BEEN SCREENED AND CATEGORIZED HIGH NUTRITION RISK. PATIENT WILL BE SEEN WITHIN 1-2 DAYS OF ADMISSION. 09/15/19-09/16/[address]
--- NOTE | 2019-09-15 09:15 | NUR ---
MACHO MACKEY BROUGHT IN SUPPLIES FROM OR. SYRINGES AND ADAPTER NON-COMPATIBLE WITH PT'S G-TUBE. PER NARENDRA, WILL CONTINUE TO FIND SUPPLIES.
--- NOTE | 2019-09-15 09:50 | NUR ---
SUPPLIES FROM OR INCOMPATIBLE WITH G-TUBE. WILL NOTIFY PHYSICIAN.
[2019-09-15 10:06] LABS: CHOL/HDL RATIO 4.6 (1-4.5)
--- NOTE | 2019-09-15 10:30 | NUR ---
DR. SMITH AWARE THAT MORNING MEDICATIONS HAVE NOT BEEN ADMINISTERED, PER PHYSICIAN ADMINISTER WHEN ACCESS AVAILABLE.
[2019-09-15 10:53] LABS: PHOSPHORUS 3.4 mg/dL (2.5-4.9)
--- NOTE | 2019-09-15 10:56 | NUR ---
PICC LINE PROCEDURE IN PROGRESS NO EVIDENCE OF PATIENT SOB NOTED AT THIS TIME OPERATIONS SECTION MANAGER TO ATTEMPT ASSESSMENT AT A LATER TIME
[2019-09-15] MEDS: METOPROLOL 25 MG TAB PO SCH ×2 (11:00→20:32)
[2019-09-15] MEDS: DILTIAZEM 30 MG TAB PO SCH ×2 (11:00→20:25)
[2019-09-15] MEDS: DOCUSATE SODIUM 100 MG GELCAP PO SCH ×2 (11:00→20:25)
[2019-09-15] MEDS: DIGOXIN 0.125 MG/2.5 ML UDC PO SCH (11:00)
[2019-09-15] MEDS: FAMOTIDINE 20 MG TAB PO SCH (11:00)
[2019-09-15] MEDS: levETIRAcetam 100 MG/ML ORASYR GT SCH ×2 (11:00→20:25)
[2019-09-15] MEDS: FINASTERIDE 5 MG TAB PO SCH (11:00)
[2019-09-15] MEDS: LACTOBACILLUS RHAMNOSUS GG 1 EACH CAP PO SCH (11:00)
--- NOTE | 2019-09-15 11:00 | NUR ---
PER FAMILY, THEY WILL BRING SYRINGES THAT ARE COMPATIBLE WITH G-TUBE. PER DR. SMITH, OK TO HOLD MEDICATIONS AT THIS TIME. NOTIFY PHYSICIAN WHEN FAMILY COMES WITH SYRINGES, NO EPISODES OF SEIZURE-LIKE ACTIVITY.
[2019-09-15] MEDS: ALBUTEROL SULFATE/IPRATROPIU 3 ML SOL IH SCH ×3 (12:00→20:34)
[2019-09-15] MEDS: NACL 0.9% 1,000 ML IV SCH ×2 (12:02→17:50)
[2019-09-15] MEDS: ACETYLCYSTEINE 10% (100 MG/ML) 100 MG/ML VIAL INH SCH ×3 (13:00→20:34)
--- NOTE | 2019-09-15 13:30 | NUR ---
NOTIFIED RESPIRATORY THERAPIST REGARDING ORDER TO INDUCE SPUTUM.
--- NOTE | 2019-09-15 14:22 | NUR ---
09/15/19 RD INITIAL ASSESSMENT COMPLETED PLEASE REFER TO NUTRITION ASSESSMENT UNDER CARE ACTIVITY FOR ESTIMATED NUTRITIONAL NEEDS. 1. RECOMMEND VITAL 1.2 @ 60 ML/HR X 24 HR -THIS IS WILL PROVIDE 1440 ML, 1728 KCAL AND 108 GM OF PROTEIN WHICH MEETS 100% OF ESTIMATED NEEDS 2. RECOMMEND FREE WATER FLUSH OF [address] TO FOLLOW-UP 2-3 DAYS, HIGH RISK JANICE LABOY RD
--- NOTE | 2019-09-15 14:30 | NUR ---
RT COLLECTED SPUTUM PER ORDER, NOTED SMALL, WHITE AMOUNT. PT HAS NO SIGNS OF DISTRESS, RESPIRATIONS EVEN AND UNLABORED ON 3L O2 VIA N/C.
--- NOTE | 2019-09-15 15:05 | NUR ---
RESIDENT MD ORDERS AT 0548 NOT RECEIVED IN RESPIRATORY DEPARTMENT ENGINEER ASSISTANT NOT AWARE OF ORDERS ENGINEER ASSISTANT MADE AWARE BY NATALIA/MACHO AT 1420 FOLLOWING ORDERS CARRIED OUT: [facility] THERAPY PLUS RESPIRATORY DRUGS, OXYGEN ORDER AND SPUTUM CULTURE WITH EXCEPTION OF INCENTIVE SPIROMETRY PATIENT UNABLE TO FOLLOW COMMANDS
[2019-09-15 16:00] VITALS: BP 128/96
--- NOTE | 2019-09-15 16:24 | NUR ---
FAMILY BROUGHT SYRINGES FROM HOME. RECEIVED ORDERS FROM DR. SMITH TO ADMINISTER KEPPRA VIA G-TUBE.
[2019-09-15] MEDS ORDERED: levETIRAcetam 100 MG/ML ORASYR GT SCH (16:30)
--- NOTE | 2019-09-15 18:00 | NUR ---
FAMILY AT BEDSIDE, PT HAS NO S/S OF DISTRESS AT THIS TIME.
--- NOTE | 2019-09-15 19:10 | NUR ---
ENDORSED PT TO SENIOR PORTFOLIO ANALYST NURSE LUZ MARINA PT HAS NO SIGNS OF DISTRESS AT THIS TIME.
--- NOTE | 2019-09-15 19:11 | NUR ---
REPORT RECEIVED FROM AM NURSE AT BEDSIDE. PT IN STABLE CONDITION. AAOX1. INTRODUCED SELF TO PT AND FAMILY. BOARD UPDATED. NO COMPLAINTS OF PAIN. NO SOB ON 3L O2 VIA NC. AFEBRILE. PT IS BEDBOUND. PT HAS GTUBE. FEEDING IS VITAL AF 1.2@60ML/HR WITH 50ML H20 FLUSH Q4H. IV SITE L UA PICC LINE DOUBLE LUMEN RUNNING NS@80ML/HR PATENT AND INTACT. SKIN WARM, DRY, AND INTACT WITH NO OPEN WOUNDS. BED LOCKED IN LOW POSITION. CALL TAYLOR WITHIN REACH. SAFETY PRECAUTION IN PLACE. ALL NEEDS MET AT THIS TIME.
--- NOTE | 2019-09-15 20:25 | NUR ---
KEPPRA, CARDIZEM, AND COLACE GIVEN THROUGH GTUBE. LOPRESSOR HELD DUE TO DECREASED DIASTOLIC BP OF 120/45. PT TOLERATED WELL.
[2019-09-15] MEDS ORDERED: ACETYLCYSTEINE 10% (100 MG/ML) 100 MG/ML VIAL ONE (20:30)
[2019-09-15] MEDS: SODIUM FERRIC GLUCONATE 125 MG in NACL 0.9% 100 ML IV SCH (22:09)
--- NOTE | 2019-09-15 22:09 | NUR ---
ADDIE HUNG AND RUNNING. PT TOLERATING WELL.
--- NOTE | 2019-09-15 23:11 | NUR ---
DOUG HUNG AND RUNNING. PT TOLERATING WELL.
[2019-09-16] VITALS: BP 120/45
--- NOTE | 2019-09-16 00:55 | NUR ---
PT AWAKE AND ALERT WATCHING TV. NO S/S OF DISTRESS NOTED. WILL CONTINUE TO MONITOR.
--- NOTE | 2019-09-16 02:15 | NUR ---
PT SLEEPING COMFORTABLY BUT AROUSABLE. NO S/S OF DISTRESS NOTED. NO COMPLAINTS OF PAIN. NO SOB. AFEBRILE. WILL CONTINUE TO MONITOR.
[2019-09-16] MEDS: NACL 0.9% 1,000 ML IV SCH ×2 (03:44→19:51)
--- NOTE | 2019-09-16 03:45 | NUR ---
PT FEEDING CLOGGED. TUBING CHANGED.
[2019-09-16] MEDS: PIPERACILLIN/TAZOBACTAM 3.375 GM in DEXTROSE 5% 50 ML IV SCH ×4 (05:10→23:15)
--- NOTE | 2019-09-16 05:10 | NUR ---
DOUG HUNG AND RUNNING. PT TOLERATING WELL.
--- NOTE | 2019-09-16 06:50 | NUR ---
PT SLEEPING COMFORTABLY BUT AROUSABLE. PT IN STABLE CONDITION.
[2019-09-16 06:51] LABS: BASOPHILS # (AUTO) 0.1 K/uL (0.00-0.22); BASOPHILS % (AUTO) 0.9 % (0.0-2.0); EOSINOPHILS # (AUTO) 0.1 K/uL (0-0.4); EOSINOPHILS % (AUTO) 1.3 % (0.0-4.0); HEMATOCRIT 25.3 % (36-52); LYMPHOCYTES # (AUTO) 0.7 K/uL (2.0-11.5); LYMPHOCYTES % (AUTO) 10.4 % (20.5-51.1); MEAN CORPUSCULAR HEMOGLOBIN 27 pg (27-31); MEAN CORPUSCULAR HGB CONC 32 g/dL (33-37); MEAN CORPUSCULAR VOLUME 85.4 fL (80-94); MONOCYTES # (AUTO) 0.7 K/uL (0.8-1.0); MONOCYTES % (AUTO) 10.5 % (1.7-9.3); NEUTROPHILS # (AUTO) 5.4 K/uL (1.8-7.7); NEUTROPHILS % (AUTO) 76.9 % (42.2-75.2); PLATELET COUNT (AUTO) 314 K/uL (140-450); RED BLOOD CELL COUNT(AUTO) 2.97 MIL/uL (4.20-6.10); RED CELL DISTRIBUTION WIDTH 16.2 % (11.6-13.7); WHITE BLOOD COUNT (AUTO) 7.1 K/uL (4.8-10.8)
[2019-09-16 06:52] LABS: CARBON DIOXIDE 31.7 mmol/L (21-32); CHLORIDE 101 mmol/L (98-107); CREATININE 0.6 mg/dL (0.7-1.3); GLUCOSE 160 mg/dL (74-106); POTASSIUM 3.7 mmol/L (3.5-5.1); SODIUM SERUM 138 mmol/L (136-145); UREA NITROGEN, BLOOD 6 mg/dL (7-18)
[2019-09-16 07:04] LABS: MAGNESIUM 1.9 mg/dL (1.8-2.4); PHOSPHORUS 2.9 mg/dL (2.5-4.9)
[2019-09-16] MEDS: ALBUTEROL SULFATE/IPRATROPIU 3 ML SOL IH SCH ×3 (07:20→19:08)
[2019-09-16] MEDS: ACETYLCYSTEINE 10% (100 MG/ML) 100 MG/ML VIAL INH SCH ×3 (07:20→19:08)
--- NOTE | 2019-09-16 07:25 | NUR ---
RECEIVED BEDSIDE SHIFT REPORT FROM DIRECTOR OF SOCIAL WORK NURSE FOR CONTINUATION OF CARE. PATIENT IS AAOX1, DOES NOT RESPOND TO VERBAL COMMANDS, GAZE IS FIXED TO THE RIGHT, OBSERVED RHYTHMIC CHEST RISE AND FALL, NO SIGNS OF DISTRESS NOTED. ASPIRATION AND SEIZURE PRECAUTIONS IN PLACE. ON CONTACT PRECAUTION FOR ESBL SPUTUM. RIGHT UPPER ARM DOUBLE LUMEN PICC LINE INTACT AND RUNNING NS @ 80 ML/HR. LUNG SOUNDS ARE ABNORMAL. ON 2 L O2 VIA NASAL CANNULA. WILL CONTINUE TO MONITOR.
[2019-09-16 08:00] VITALS: BP 124/48
[2019-09-16 08:08] LABS: FOLIC ACID 17.4 ng/mL (>3.0)
[2019-09-16] MEDS: DIGOXIN 0.125 MG/2.5 ML UDC PO SCH (09:48)
[2019-09-16] MEDS: levETIRAcetam 100 MG/ML ORASYR GT SCH ×2 (09:49→21:01)
[2019-09-16] MEDS: FINASTERIDE 5 MG TAB PO SCH (09:49)
[2019-09-16] MEDS: DOCUSATE SODIUM 100 MG GELCAP PO SCH ×2 (09:49→21:01)
[2019-09-16] MEDS: LACTOBACILLUS RHAMNOSUS GG 1 EACH CAP PO SCH (09:49)
[2019-09-16] MEDS: FAMOTIDINE 20 MG TAB PO SCH (09:49)
[2019-09-16] MEDS: METOPROLOL 25 MG TAB PO SCH ×2 (09:50→21:00)
[2019-09-16] MEDS: DILTIAZEM 30 MG TAB PO SCH ×2 (09:50→21:01)
--- NOTE | 2019-09-16 10:00 | NUR ---
MEDICATIONS ADMINISTERED VIA G-TUBE, PO MEDICATIONS CRUSHED AND MIXED WITH NS. PATIENT WAS SUCTIONED DUE TO GARGLING SOUNDS, SUCTIONED APPROXIMATELY 3 MLS OF SALIVA. PATIENTS NIECE IS AT BEDSIDE. TOLERATED MEDICATION ADMINISTRATION WELL, DHAVAL IS AAOX1. UNRESPONSIVE TO VERBAL COMMANDS. TUBE FEEDING CONTINUING AT 60 MLS/HR. WILL CONTINUE TO MONITOR.
--- NOTE | 2019-09-16 13:00 | NUR ---
PATIENT IS RESTING IN BED, CALL LIGHT ON AND WITHIN REACH. FIXED GAZE TO THE RIGHT, OCCASIONAL COUGH NOTED WITH PRODUCTIVE SOUND BUT NO EXUDATE NOTED. FAMILY AT BEDSIDE, PATIENTS SON IS REQUESTING ADDITIONAL OPTIONS FOR SNF, CIRCULATION LIBRARIAN PRESENT TO DISCUSS OPTIONS. BED IN LOW POSITION, CALL LIGHT ON AND WITHIN REACH. WILL CONTINUE TO MONITOR.
--- NOTE | 2019-09-16 13:32 | NUR ---
SCREEN FOR LOW VAHE SCALE AT RISK, CONTINUE TO FOLLOW PRESSURE ULCER PREVENTION INTERVENTIONS. -TURN AND REPOSITION PATIENT Q 2H -ASSESS AND MONITOR SKIN CONDITION DURING POSITION CHANGE -OFFLOAD BILATERAL HEELS BY PLACING PILLOWS UNDER CALVES AT ALL TIMES, UNLESS OTHERWISE CONTRAINDICATED -PRESSURE REDISTRIBUTION BY PLACING PILLOWS AND OFFLOADING SACRALCOCCYX -KEEP SKIN CLEAN AND DRY AT ALL TIMES. -APPLY Z GUARD TO BUTTOCKS AND PERINEUM AREA BID AND PRN IF SOILING
[2019-09-16 16:00] VITALS: BP 114/46
--- NOTE | 2019-09-16 16:00 | NUR ---
PATIENT IS RESTING IN BED, IV ANTIBIOTIC ADMINISTERED, TOLERATING WELL. EYES CLOSED, AAOX1, UNRESPONSIVE TO VERBAL COMMANDS. BED IN LOW POSITION, CALL LIGHT ON AND WITHIN REACH, WILL CONTINUE TO MONITOR.
--- NOTE | 2019-09-16 19:15 | NUR ---
BEDSIDE SHIFT REPORT GIVEN TO ONCOMING CLUTCH OPERATOR NURSE FOR CONTINUITY OF CARE.
--- NOTE | 2019-09-16 19:16 | NUR ---
REPORT RECEIVED FROM AM NURSE AT BEDSIDE. PT IN STABLE CONDITION. AAOX1. INTRODUCED SELF TO PT AND FAMILY. BOARD UPDATED. NO COMPLAINTS OF PAIN. NO SOB ON 2L O2 VIA NC. AFEBRILE. PT IS BEDBOUND. PT HAS GTUBE. GTUBE FEEDINGS VITAL AF 1.2@60ML/HR WITH 50ML H20 FLUSH Q4H PATENT AND INTACT. IV SITE R UA DOUBLE LUMEN PICC RUNNING NS@80ML/HR PATENT AND INTACT. SKIN WARM, DRY, AND INTACT WITH NO OPEN WOUNDS. BED LOCKED IN LOW POSITION. CALL TAYLOR WITHIN REACH. SAFETY PRECAUTION IN PLACE. ALL NEEDS MET AT THIS TIME.
--- NOTE | 2019-09-16 19:19 | NUR ---
RECEIVED PT ON 2L NC WITH SP02 OF 94% AND A COARSE CRACKLES BREATH SOUNDS. NO RESPIRATORY DISTRESS NOTED AT THIS TIME; HR 89, RR 16. HHN TX GIVEN ORDERED WITH NO ADVERSE REACTION. FAMILY AT THE BEDSIDE. WILL CONTINUE TO MONITOR PT.
--- NOTE | 2019-09-16 21:01 | NUR ---
KEPPRA, CARDIZEM, AND COLACE GIVEN THROUGH GTUBE. LOPRESSOR HELD DUE TO DECREASED BP. PT TOLERATED WELL. GTUBE RESIDUAL OF 10ML. PT TOLERATING FEEDING WELL.
[2019-09-16] MEDS: SODIUM FERRIC GLUCONATE 125 MG in NACL 0.9% 100 ML IV SCH (21:13)
--- NOTE | 2019-09-16 21:13 | NUR ---
ADDIE HUNG AND RUNNING. PT TOLERATING WELL.
--- NOTE | 2019-09-16 23:15 | NUR ---
DOUG HUNG AND RUNNING. PT TOLERATING WELL.
[2019-09-17] VITALS: BP 112/47
--- NOTE | 2019-09-17 | NUR ---
VITAL SIGNS ARE WITHIN NORMAL LIMITS. ALL SAFETY MEASURES ARE IN PLACE. CALL LIGHT IS WITHIN REACH. WILL CONTINUE TO MONITOR Addendum: 09/18/19 at 0059 by Zarina Hawthorne RN WRONG TIME AND DATE.
--- NOTE | 2019-09-17 00:50 | NUR ---
PT SLEEPING COMFORTABLY BUT AROUSABLE. NO S/S OF DISTRESS NOTED. WILL CONTINUE TO MONITOR.
--- NOTE | 2019-09-17 03:10 | NUR ---
PT SLEEPING COMFORTABLY BUT AROUSABLE. NO S/S OF DISTRESS NOTED. RESPIRATIONS EVEN, UNLABORED, AND WNL. WILL CONTINUE TO MONITOR.
--- NOTE | 2019-09-17 04:40 | NUR ---
TUBE FEEDING CHANGED.
[2019-09-17] MEDS: PIPERACILLIN/TAZOBACTAM 3.375 GM in DEXTROSE 5% 50 ML IV SCH ×3 (05:00→18:01)
--- NOTE | 2019-09-17 05:00 | NUR ---
DOUG HUNG AND RUNNING. PT TOLERATING WELL.
[2019-09-17] MEDS: ACETYLCYSTEINE 10% (100 MG/ML) 100 MG/ML VIAL INH SCH ×3 (06:35→19:20)
[2019-09-17] MEDS: ALBUTEROL SULFATE/IPRATROPIU 3 ML SOL IH SCH ×3 (06:35→19:20)
--- NOTE | 2019-09-17 06:55 | NUR ---
PT SLEEPING COMFORTABLY BUT AROUSABLE. PT IN STABLE CONDITION.
--- NOTE | 2019-09-17 07:22 | NUR ---
RECEIVED BEDSIDE REPORT FROM DEVELOPER TRADING SYSTEMS NURSE FOR CONTINUITY OF CARE. PT IS RESTING ON BED AT THIS TIME. EYES OPEN TO VOICE, PT IS APHASIC. RESPIRATION EVEN AND UNLABORED ON 2LPM VIA NC. FLACC 0. NO SIGNS OF DISTRESS NOTED. PICC ON TAMIKO, DOUBLE LUMEN,CLEAN AND INTACT, INFUSING PER MD ORDER. G-TUBE IN PLACE, AND INFUSING VITAL AF 1.2 AT 60 ML/HR. PT IS INCONTINENT AND BEDBOUND. CONTACT PRECAUTION IN PLACE AND SIGN POSTED. SAFETY MEASURES IN PLACE. BED IN LOW POSITION AND CALL LIGHT WITHIN REACH.
[2019-09-17 08:00] VITALS: BP 132/51
[2019-09-17 08:05] LABS: BASOPHILS # (AUTO) 0.1 K/uL (0.00-0.22); BASOPHILS % (AUTO) 1.2 % (0.0-2.0); EOSINOPHILS # (AUTO) 0.1 K/uL (0-0.4); EOSINOPHILS % (AUTO) 1.7 % (0.0-4.0); HEMATOCRIT 25.6 % (36-52); LYMPHOCYTES # (AUTO) 0.8 K/uL (2.0-11.5); LYMPHOCYTES % (AUTO) 11.4 % (20.5-51.1); MEAN CORPUSCULAR HEMOGLOBIN 27 pg (27-31); MEAN CORPUSCULAR HGB CONC 31 g/dL (33-37); MEAN CORPUSCULAR VOLUME 86.1 fL (80-94); MONOCYTES # (AUTO) 0.6 K/uL (0.8-1.0); NEUTROPHILS # (AUTO) 5.7 K/uL (1.8-7.7); NEUTROPHILS % (AUTO) 77.7 % (42.2-75.2); PLATELET COUNT (AUTO) 315 K/uL (140-450); RED BLOOD CELL COUNT(AUTO) 2.97 MIL/uL (4.20-6.10); RED CELL DISTRIBUTION WIDTH 16.9 % (11.6-13.7); WHITE BLOOD COUNT (AUTO) 7.4 K/uL (4.8-10.8)
[2019-09-17 08:23] LABS: PHOSPHORUS 2.5 mg/dL (2.5-4.9)
[2019-09-17 08:25] LABS: ANION GAP 9.9 (8-16); CARBON DIOXIDE 30.8 mmol/L (21-32); CHLORIDE 102 mmol/L (98-107); CREATININE 0.6 mg/dL (0.7-1.3); GLUCOSE 157 mg/dL (74-106); POTASSIUM 3.7 mmol/L (3.5-5.1); SODIUM SERUM 139 mmol/L (136-145); UREA NITROGEN, BLOOD 8 mg/dL (7-18)
--- NOTE | 2019-09-17 09:50 | NUR ---
EDITORIAL SPECIALIST IS CHANGING AND CLEANING PT. PT TOLERATED WELL. BROTHER WENDY IS BY BEDSIDE. NO SIGNS OF DISTRESS NOTED. SAFETY MEASURES IN PLACE. BED IN LOW POSITION AND CALL LIGHT WITHIN REACH. BED ALARM ACTIVATED.
[2019-09-17] MEDS: DIGOXIN 0.125 MG/2.5 ML UDC PO SCH (10:17)
[2019-09-17] MEDS: METOPROLOL 25 MG TAB PO SCH ×2 (10:19→20:08)
[2019-09-17] MEDS: DOCUSATE SODIUM 100 MG GELCAP PO SCH ×2 (10:19→20:08)
[2019-09-17] MEDS: LACTOBACILLUS RHAMNOSUS GG 1 EACH CAP PO SCH (10:19)
[2019-09-17] MEDS: FERROUS SULFATE 300 MG/5 ML UDC GT SCH (10:20)
[2019-09-17] MEDS: levETIRAcetam 100 MG/ML ORASYR GT SCH ×2 (10:20→20:08)
[2019-09-17] MEDS: ASCORBIC ACID 500 MG/5 ML ORASYR GT SCH (10:20)
[2019-09-17] MEDS: FAMOTIDINE 20 MG TAB PO SCH (10:21)
[2019-09-17] MEDS: FINASTERIDE 5 MG TAB PO SCH (10:21)
[2019-09-17] MEDS: DILTIAZEM 30 MG TAB PO SCH ×2 (10:21→20:08)
--- NOTE | 2019-09-17 10:21 | NUR ---
CHECKED AM VITAL SIGNS PRIOR TO MED ADMINISTER, TEMP 98.7, BP 132/51, PULSE 95, SPO2 94% AT 2LPM VIA NC, RR 18, FLACC 0. CHECKED G-TUBE RESIDUAL AND RECEIVED 5 ML. FLUSHED BEFORE AND AFTER MEDS ADMINISTRATION, MEDS ED PROVIDED TO PT AND REINFORCEMENT NEEDED. PT AWAKE WITH EYES OPEN, RESPIRATION EVEN AND UNLABORED, NO SIGNS OF DISTRESS NOTED. SAFETY MEASURES IN PLACE. BED ALARM ACTIVATED.
--- NOTE | 2019-09-17 11:30 | NUR ---
DR WORTHY IS TALKING TO PT'S FAMILY AT BEDSIDE. NO SIGNS OF DISTRESS NOTED. SAFETY MEASURES IN PLACE.
--- NOTE | 2019-09-17 13:18 | NUR ---
PT AWAKE WITH EYES OPEN AND RESTING ON BED. RESPIRATION EVEN AND UNLABORED ON NC. FLACC 0. FAMILY SHANTHI IS AT BEDSIDE. NO SIGNS OF DISTRESS NOTED. SAFETY MEASURES IN PLACE. BED IN LOW POSITION AND CALL LIGHT WITHIN REACH. BED ALARM ACTIVATED.
[2019-09-17] MEDS: SCOPOLAMINE 1.5 MG/72 HR PATCH TD SCH (13:38)
--- NOTE | 2019-09-17 13:39 | NUR ---
ADMINISTERED MEDS PER MD ORDER, MEDS ED PROVIDED AND REINFORCEMENT NEEDED DUE TO PT'S MENTAL STATUS. UNABLE TO SCAN SCOPOLAMINE PATCH DUE TO UNKNOWN NDC#, APPLIED BEHIND PT'S LEFT EAR. PT IS RESTING ON BED AT THIS TIME. FLACC 0. NO SIGNS OF DISTRESS NOTED. SAFETY MEASURES IN PLACE.
--- NOTE | 2019-09-17 15:50 | NUR ---
PT IS RESTING ON BED. FLACC 0. RESPIRATION EVEN AND UNLABORED ON 2LPM VIA NC. NO SIGNS OF DISTRESS NOTED. SAFETY MEASURES IN PLACE.
[2019-09-17 16:00] VITALS: BP 133/53
--- NOTE | 2019-09-17 16:11 | NUR ---
PT'S DAUGHTER LESLEE IS BY BEDSIDE. NO SIGNS OF DISTRESS NOTE. SAFETY MEASURES IN PLACE. BED IN LOW POSITION AND CALL LIGHT WITHIN REACH. BED ALARM ACTIVATED.
--- NOTE | 2019-09-17 17:21 | NUR ---
PT IS RESTING ON BED AT THIS TIME. EYES OPEN TO TOUCH. RESPIRATION EVEN AND UNLABORED ON 2LPM VIA NC. FLACC 0. NO SIGNS OF DISTRESS NOTED. SAFETY MEASURES IN PLACE. BED IN LOW POSITION AND CALL LIGHT WITHIN REACH. BED ALARM ACTIVATED.
--- NOTE | 2019-09-17 18:01 | NUR ---
ADMINISTERED ANTIBIOTIC VIA IVPB PER MD ORDER, MED ED PROVIDED TO PT AND REINFORCEMENT NEEDED. PT IS RESTING ON BED WITH EYE OPENS. RESPIRATION EVEN AND UNLABORED ON 2LPM VIA NC. FLACC 0. NO SIGNS OF DISTRESS NOTED. SAFETY MEASURES IN PLACE. BED IN LOW POSITION AND CALL LIGHT WITHIN REACH. BED ALARM ACTIVATED.
--- NOTE | 2019-09-17 18:19 | NUR ---
09/17/2019 RD FOLLOW UP COMPLETED PLEASE REFER TO NUTRITION PROGRESS NOTE UNDER CARE ACTIVITY FOR ESTIMATED NUTRITION NEEDS. RD RECOMMENDATIONS: 1. RECOMMEND CONTINUE VITAL AF 1.2 @ 60 ML/HR X 24 HR -THIS IS WILL PROVIDE 1440 ML, 1728 KCAL AND 108 GM OF PROTEIN WHICH MEETS 100% OF ESTIMATED NEEDS 2. RD TO FOLLOW-UP 2-3 DAYS, HIGH RISK NADIYA SANCHEZ MBA, RD
--- NOTE | 2019-09-17 19:15 | NUR ---
ENDORSED PT AT BEDSIDE TO MACHINE TOOL MECHANIC NURSE FOR CONTINUITY OF CARE. PT IS AWAKE WITH BOTH EYES OPEN AND RESTING ON BED. RESPIRATION EVEN AND UNLABORED ON 2LPM VIA NC. FLACC 0. FAMILY IS BY BEDSIDE. NO SIGNS OF DISTRESS NOTED. SAFETY MEASURES IN PLACE. BED IN LOW POSITION AND CALL LIGHT WITHIN REACH. FALL RISK PROTOCOL IN PLACE AND BED ALARM ACTIVATED.
--- NOTE | 2019-09-17 19:28 | NUR ---
RECEIVED PT ON 2L NC WITH SP02 OF 99% AND A COARSE CRACKLES BREATH SOUNDS. NO RESPIRATORY DISTRESS NOTED AT THIS TIME; HR 88, RR 16. HHN TX GIVEN ORDERED WITH NO ADVERSE REACTION. FAMILY AT THE BEDSIDE. WILL CONTINUE TO MONITOR PT
--- NOTE | 2019-09-17 19:29 | NUR ---
RECEIVED BEDSIDE REPORT FROM DAY RN. PT IS RESTING IN BED AT THIS TIME. EYES OPEN TO VOICE, PT IS APHASIC. RESPIRATION EVEN AND UNLABORED ON 2LPM VIA NC. NO S/S OF RESPIRATORY DISTRESS. FLACC 0. PICC ON TAMIKO, DOUBLE LUMEN,CLEAN AND INTACT, INFUSING PER MD ORDER. G-TUBE IN PLACE, AND INFUSING VITAL AF 1.2 AT 60 ML/HR. PT IS INCONTINENT AND BEDBOUND. CONTACT PRECAUTION IN PLACE AND SIGN POSTED FOR HX ESBL SPUTUM. SAFETY MEASURES IN PLACE. BED IN LOW POSITION AND CALL LIGHT WITHIN REACH.
--- NOTE | 2019-09-17 20:08 | NUR ---
VSS. CHECKED G-TUBE PLACEMENT. PT WITH APPROX 5CC RESIDUAL. MEDICATIONS CRUSHED AND GIVEN VIA G TUBE. EXPLAINED REASON AND POSS S/E OF MEDICATIONS TO PT AND DAUGHTER. DAUGHTER VERBALIZED UNDERSTANDING. FEEDING RESUME. PROVIDED ORAL CARE AND SUCTION. PT TOLERATED WELL. ALL SAFETY MEASURES ARE IN PLACE. WILL CONTINUE TO MONITOR.
--- NOTE | 2019-09-17 21:35 | NUR ---
PATIENT WAS CLEANED AND REPOSITION FOR COMFORT. PT TOLERATED WELL. ALL SAFETY MEASURES ARE IN PLACE. WILL CONTINUE TO MONITOR.
[2019-09-18] VITALS: BP 123/64
--- NOTE | 2019-09-18 | NUR ---
VITAL SIGNS ARE WITHIN NORMAL LIMITS. ALL SAFETY MEASURES ARE IN PLACE. CALL LIGHT IS WITHIN REACH. WILL CONTINUE TO MONITOR
[2019-09-18] MEDS: PIPERACILLIN/TAZOBACTAM 3.375 GM in DEXTROSE 5% 50 ML IV SCH ×5 (00:52→23:53)
--- NOTE | 2019-09-18 02:00 | NUR ---
NEW TUBE FEEDING VITAL AF 1.2 STARTED. PT WITH NO RESIDUALS. PT IS SLEEPING COMFORTABLY IN BED WITH EYES CLOSED. CHEST RISE AND FALL. SAFETY MEASURES ARE IN PLACE.
--- NOTE | 2019-09-18 04:15 | NUR ---
PATIENT IS SLEEPING COMFORTABLY IN BED WITH EYES CLOSED. CHEST RISE AND FALL. CALL LIGHT IS WITHIN REACH.
[2019-09-18] MEDS: NACL 0.9% 1,000 ML IV SCH ×2 (05:33→17:52)
[2019-09-18] MEDS: ACETYLCYSTEINE 10% (100 MG/ML) 100 MG/ML VIAL INH SCH ×3 (06:57→19:51)
[2019-09-18] MEDS: ALBUTEROL SULFATE/IPRATROPIU 3 ML SOL IH SCH ×3 (06:57→19:50)
--- NOTE | 2019-09-18 07:10 | NUR ---
GAVE BEDSIDE REPORT TO DAY RN. PT ENDORSED IN STABLE CONDITION.
--- NOTE | 2019-09-18 07:11 | NUR ---
RECEIVED REPORT FROM FLYING SQUAD WORKER NURSE. PT IS STABLE, NO SIGNS OF DISTRESS. PT HAS O2 AT 2LPM. PT IS BEDBOUND. PT HAS RT UPPER ARM PICC LINE WITH NS INFUSING AT 30ML/HR. PT HAS NO KNOWN ALLERGIES. CALL LIGHT WITHIN PT'S REACH, BED ON LOW, SIDERAILS UP. WILL CONTINUE TO MONITOR
[2019-09-18 07:27] LABS: BASOPHILS # (AUTO) 0.1 K/uL (0.00-0.22); BASOPHILS % (AUTO) 1.4 % (0.0-2.0); EOSINOPHILS # (AUTO) 0.2 K/uL (0-0.4); EOSINOPHILS % (AUTO) 2.3 % (0.0-4.0); HEMATOCRIT 26.1 % (36-52); HEMOGLOBIN 8.1 g/dL (12.0-18.0); LYMPHOCYTES % (AUTO) 14.1 % (20.5-51.1); MEAN CORPUSCULAR HEMOGLOBIN 27 pg (27-31); MEAN CORPUSCULAR HGB CONC 31 g/dL (33-37); MEAN CORPUSCULAR VOLUME 86.4 fL (80-94); MONOCYTES # (AUTO) 0.5 K/uL (0.8-1.0); MONOCYTES % (AUTO) 7.8 % (1.7-9.3); NEUTROPHILS # (AUTO) 5.3 K/uL (1.8-7.7); NEUTROPHILS % (AUTO) 74.4 % (42.2-75.2); PLATELET COUNT (AUTO) 306 K/uL (140-450); RED BLOOD CELL COUNT(AUTO) 3.02 MIL/uL (4.20-6.10); RED CELL DISTRIBUTION WIDTH 17.2 % (11.6-13.7); WHITE BLOOD COUNT (AUTO) 7.1 K/uL (4.8-10.8)
[2019-09-18 07:41] LABS: CARBON DIOXIDE 30.9 mmol/L (21-32); CHLORIDE 102 mmol/L (98-107); CREATININE 0.6 mg/dL (0.7-1.3); GLUCOSE 147 mg/dL (74-106); POTASSIUM 3.9 mmol/L (3.5-5.1); SODIUM SERUM 139 mmol/L (136-145); UREA NITROGEN, BLOOD 7 mg/dL (7-18)
[2019-09-18 07:49] LABS: MAGNESIUM 2.1 mg/dL (1.8-2.4); PHOSPHORUS 2.9 mg/dL (2.5-4.9)
[2019-09-18 08:00] VITALS: BP 135/59
[2019-09-18] MEDS: FERROUS SULFATE 300 MG/5 ML UDC GT SCH (10:20)
[2019-09-18] MEDS: ASCORBIC ACID 500 MG/5 ML ORASYR GT SCH (10:20)
[2019-09-18] MEDS: DIGOXIN 0.125 MG/2.5 ML UDC PO SCH (10:21)
[2019-09-18] MEDS: levETIRAcetam 100 MG/ML ORASYR GT SCH ×2 (10:21→20:58)
[2019-09-18] MEDS: DOCUSATE SODIUM 100 MG GELCAP PO SCH ×2 (10:21→20:59)
[2019-09-18] MEDS: LACTOBACILLUS RHAMNOSUS GG 1 EACH CAP PO SCH (10:22)
[2019-09-18] MEDS: DILTIAZEM 30 MG TAB PO SCH ×2 (10:22→20:59)
[2019-09-18] MEDS: FINASTERIDE 5 MG TAB PO SCH (10:22)
--- NOTE | 2019-09-18 10:22 | NUR ---
V/S TAKEN [facility] BP OF 135/59, P 97. SCHEDULED MEDS GIVEN. PO MEDS CRUSHED AND MIXED W/ WATER. GIVEN VIA GTUBE. PT IS STABLE. FAMILY AT BEDSIDE. WILL CONTINUE TO MONITOR
[2019-09-18] MEDS: FAMOTIDINE 20 MG TAB PO SCH (10:23)
[2019-09-18] MEDS: METOPROLOL 25 MG TAB PO SCH ×2 (10:23→20:59)
--- NOTE | 2019-09-18 10:40 | NUR ---
PT'S SON ROSHNI IS BY BEDSIDE. PER ROSHNI, PT IS UP TO DATE WITH FLU AND PNA VACCINES.
--- NOTE | 2019-09-18 11:30 | NUR ---
FREQUENT ROUNDING DONE. PT IS STABLE. FAMILY AT BEDSIDE. CALL LIGHT WITHIN PT'S REACH.BED ON LOW, SIDERAILS UP. WILL CONTINUE TO MONITOR
--- NOTE | 2019-09-18 12:15 | NUR ---
PT IS SLEEPING. V/S TAKEN WITH BP 130/58 P 98. ANTIBIOTIC GIVEN VIA IVPB. CALL LIGHT WITHIN PT'S REACH. WILL CONTINUE TO MONITOR
--- NOTE | 2019-09-18 13:17 | NUR ---
FREQUENT ROUNDING DONE. PT IS STABLE. NO SIGNS OF DISTRESS. PT'S O2 IS 100. CALL LIGHT WITHIN PT'S REACH, BED ON LOW, SIDERAILS UP. WILL CONTINUE TO MONITOR
--- NOTE | 2019-09-18 14:51 | NUR ---
FREQUENT ROUNDING DONE. PT IS SLEEPING COMFORTABLY BUT AROUSABLE. NO SIGNS OF DISTRESS. ALL SAFETY MEASURES ARE IN PLACE. CALL LIGHT WITHIN PT'S REACH. WILL CONTINUE TO MONITOR
--- NOTE | 2019-09-18 15:38 | NUR ---
PT AWAKE AND RESTING ON BED. RESPIRATION EVEN AND UNLABORED ON 2LPM VIA NC. FLACC 0. NO SIGNS OF DISTRESS NOTED. GRANDCHILDREN DARIEN AND CHRISTIANNE ARE BY BEDSIDE. INSTRUCTED VISITORS TO PUT ALL PPE AT ALL TIME IN PT'S ROOM, BOTH VERBALIZED UNDERSTANDING. SAFETY MEASURES IN PLACE. BED IN LOW POSITION AND CALL LIGHT WITHIN REACH. BED ALARM ACTIVATED.
[2019-09-18 16:00] VITALS: BP 117/47
--- NOTE | 2019-09-18 16:13 | NUR ---
CALLED ADMISSIONS AT [facility], SPOKE WITH ELLIE TEL#: [phone] STATED THAT AUTHORIZATION FOR SNF IS STILL PENDING UNTIL TOMORROW. DR. WORTHY NOTIFIED.
--- NOTE | 2019-09-18 17:24 | NUR ---
SUBSTATION INSPECTOR IS PROVIDING HYGIENE CARE AND REPOSITIONING PT. PT TOLERATED WELL. RESPIRATION EVEN AND UNLABORED ON 2LPM VIA NC. FALCC 0. NO SIGNS OF DISTRESS NOTED. VISITOR LESLEE IS BY BEDSIDE. SAFETY MEASURES IN PLACE. BED ALARM ACTIVATED.
--- NOTE | 2019-09-18 17:55 | NUR ---
HUNG ZOSYN AT 100 ML/HR. PT IS SLEEPING. FAMILY AT BEDSIDE. NEW IV BAG NS 1000 ML HUNG WELL. CALL LIGHT WITHIN PT'S REACH. WILL CONTINUE TO MONITOR.
--- NOTE | 2019-09-18 19:20 | NUR ---
REPORT GIVEN TO FINANCIAL UNDERWRITER NURSE FOR CONTINUITY OF CARE. PT IS SLEEPING AND NO SIGNS OF DISTRESS. CALL LIGHT WITHIN PT'S REACH. PT IS STABLE.
--- NOTE | 2019-09-18 19:21 | NUR ---
RECEIVED BEDSIDE REPORT FROM DAY RN. PT IS RESTING IN BED AT THIS TIME. EYES OPEN TO VOICE, PT IS APHASIC. RESPIRATION EVEN AND UNLABORED ON 2LPM VIA NC. RT AT BEDSIDE. NO S/S OF RESPIRATORY DISTRESS. FLACC 0. PICC ON TAMIKO, DOUBLE LUMEN,CLEAN AND INTACT, INFUSING PER MD ORDER. G-TUBE IN PLACE, AND INFUSING VITAL AF 1.2 AT 60 ML/HR. PT IS INCONTINENT AND BEDBOUND. CONTACT PRECAUTION IN PLACE AND SIGN POSTED FOR HX ESBL SPUTUM. SAFETY MEASURES IN PLACE. BED IN LOW POSITION AND CALL LIGHT WITHIN REACH.
--- NOTE | 2019-09-18 19:58 | NUR ---
RECEIVED PATIENT ON 2L NASAL CANNULA, PULSE OX SAT 98%. SCHEDULED BREATHING TREATMENTS ADMINISTERED. TOLERATED TXs WELL WITHOUT ADVERSE SIDE EFFECTS. NO ACUTE RESPIRATORY DISTRESS NOTED AT THIS TIME. WILL CONTINUE TO MONITOR.
--- NOTE | 2019-09-18 20:59 | NUR ---
VSS. PATIENT WITH 15 CC RESIDUAL. MEDS CRUSHED AND GIVEN VIA G TUBE. PT TOLERATED WELL. SAFETY MEASURES ARE IN PLACE. WILL CONTINUE TO MONITOR.
--- NOTE | 2019-09-18 23:53 | NUR ---
VSS. NEW BAG OF ZOSYN NOW INFUSING PER ORDERS. ALL SAFETY MEASURES ARE IN PLACE. WILL CONTINUE TO MONITOR.
[2019-09-19] VITALS: BP 121/54
--- NOTE | 2019-09-19 02:00 | NUR ---
PATIENT IS SLEEPING COMFORTABLY IN BED WITH EYES CLOSED. CHEST RISE AND FALL. NO S/S OF DISTRESS. WILL CONTINUE TO MONITOR.
--- NOTE | 2019-09-19 04:30 | NUR ---
PT IS SLEEPING COMFORTABLY IN BED WITH EYES CLOSED. CHEST RISE AND FALL. NO S/S OF DISTRESS. WILL CONTINUE TO MONITOR
[2019-09-19] MEDS: PIPERACILLIN/TAZOBACTAM 3.375 GM in DEXTROSE 5% 50 ML IV SCH ×2 (05:08→12:04)
--- NOTE | 2019-09-19 05:08 | NUR ---
ZOSYN NOW INFUSING PER ORDERS. PT'S TEMP 99.4. COOLING MEASURES IN PLACE. REMOVED COVERS AND INCREASED COOL AC. WILL RECHECK TEMP IN AN HOUR. PT WAS CLEANED AND REPOSITION FOR COMFORT. SAFETY MEASURES ARE IN PLACE. WILL CONTINUE TO MONITOR.
--- NOTE | 2019-09-19 06:10 | NUR ---
RECHECKED TEMP 98.7. NO S/S OF DISTRESS. SUCTION ORAL WITH LARGE AMOUNT OF WHITE SECRETIONS. PT TOLERATED WELL. HOB ELEVATED. SAFETY MEASURES ARE IN PLACE. WILL CONTINUE TO MONITOR.
[2019-09-19] MEDS: ALBUTEROL SULFATE/IPRATROPIU 3 ML SOL IH SCH ×3 (07:11→19:28)
[2019-09-19] MEDS: ACETYLCYSTEINE 10% (100 MG/ML) 100 MG/ML VIAL INH SCH ×3 (07:12→19:28)
--- NOTE | 2019-09-19 07:20 | NUR ---
GAVE BEDSIDE REPORT TO DAY RN. PT ENDORSED IN STABLE CONDITION.
--- NOTE | 2019-09-19 07:32 | NUR ---
RECEIVED BEDSIDE REPORT FROM PM RN PT AWAKE IN BED PT APPEARS STABLE AND IN NO APPARENT DISTRESS.
[2019-09-19 08:25] VITALS: BP 135/51
[2019-09-19] MEDS: FAMOTIDINE 20 MG TAB PO SCH (08:58)
[2019-09-19] MEDS: LACTOBACILLUS RHAMNOSUS GG 1 EACH CAP PO SCH (08:59)
[2019-09-19] MEDS: DILTIAZEM 30 MG TAB PO SCH ×2 (08:59→20:38)
[2019-09-19] MEDS: levETIRAcetam 100 MG/ML ORASYR GT SCH ×2 (08:59→20:37)
[2019-09-19] MEDS: FINASTERIDE 5 MG TAB PO SCH (09:00)
[2019-09-19] MEDS: DIGOXIN 0.125 MG/2.5 ML UDC PO SCH (09:00)
[2019-09-19] MEDS: DOCUSATE SODIUM 100 MG GELCAP PO SCH ×2 (09:00→20:38)
[2019-09-19] MEDS: ASCORBIC ACID 500 MG/5 ML ORASYR GT SCH (09:01)
[2019-09-19] MEDS: FERROUS SULFATE 300 MG/5 ML UDC GT SCH (09:01)
--- NOTE | 2019-09-19 09:16 | NUR ---
FREQUENT ROUNDING ON PT PT APPEARS STABLE AND IN NO APPARENT DISTRESS. ALL SAFETY MEASURES ARE IN PLACE WILL CONTINUE TO MONITOR.
[2019-09-19] MEDS: METOPROLOL 25 MG TAB PO SCH ×2 (09:22→20:37)
--- NOTE | 2019-09-19 10:25 | NUR ---
Preconstruction Manager Note: Late entry for 09/16/19: Per , patient might need snf placement for abx ivs, micro are pending, at this time no isolation. stated she spoke with patient's son Jakob and he is aware there is a possibility patient might need snf placement. He does not want patient to be transferred to a snf located in [facility] and prefers a snf that is located in [facility], and [place]. Per Radha from [facility] , they cannot accommodate patients who require abx ivs Q6. Patient's son Jakob stated he was going to tour [facility] . Per Wen from [facility], they are contracted with [facility].
--- NOTE | 2019-09-19 10:37 | NUR ---
Lens Molding Equipment Operator Note: I called and spoke with Metal Roofing Mechanic Marie from [facility] , she stated she need 's abx iv/s order to be faxed to her, made aware. I faxed 's order to Marei, fax , I also informed her patient's son Jakob does not want a snf located in [place], [place] and [facility] is no longer able to accept due to isolation. Marie stated she call me back to let me know which other snfs I can contact, made aware. Addendum: 09/19/19 at 1120 by Glenna VAQSUES Per Metal Roofing Mechanic Marie from [facility] , she will check if they can authorize snf placement and call me back to let me know their response, made aware. Addendum: 09/19/19 at 1354 by Glenna VASQUES I called Metal Roofing Mechanic Marie from [facility] , no answer, left message. Addendum: 09/19/19 at 4771 by Glenna Damico SS Metal Roofing Mechanic Marie from [facility] , left me a message stating snf has been authorized and the following snfs can be contacted, she stated she will provide accepting snf with authorization, auth for [facility] [id number] Per Maryellen from [facility] , their export coordinator, clinical sciences professor (D.O.N) and sales administrator are not available due to holiday, they are not accepting referrals at this time. Pending response from Kayla from [facility] Per Rut from [facility] and [facility] , they do not have any isolation beds available. Per Emi from [facility] , they do not have any isolation beds available. Lefty Chaves, left answer message at , the other line did not answer, no answering machine Addendum: 09/19/19 at 1645 by Glenna VASQUES Metal Roofing Mechanic Marie from [facility] is no longer available today. I called and spoke with product planner Lidia from [facility], she referred me to speak with Metal Roofing Mechanic Lidia Garcia for snf auth, I called Metal Roofing Mechanic Lidia Garcia, no answer, left message. I also called Metal Roofing Mechanic Hazel , no answer, left message. Addendum: 09/19/19 at 1706 by Glenna Damico Metal Roofing Mechanic Lidia Garcia called me back and provided me with verbal snf auth [id number]. Per Kayla from [facility] , patient has been accepted and may go to room 121 bed 1 today, I provided her with snf auth from [facility]. I called and spoke with patient's son Jakob he stated he is 100% sure he would like patient to bed transferred to [facility] today, made aware. Addendum: 09/20/19 at 1131 by Glenna Damico SS Per documentation patient no longer requires isolation (ESBL). Per Kayla from [facility] , they can accept patient today, room 113 bed 1, accepting MD is . They would like patient to be transferred to their facility after lunch, Charge Nurse Thanh made aware. I informed Metal Roofing Mechanic Marie from [facility] patient no longer requires isolation and has been accepted at [facility]. She provided me with snf authorization for [facility] [id number], I provided Kayla from [facility] with snf authorization from [facility]. Metal Roofing Mechanic Marie stated auth for [facility] is [id number], per Charge Nurse Thahn she will arrange transportation. I called and spoke with patients son Jakob Cronin , informed him [facility] can accept patient and plan is to transfer patient today after lunch. He thanked me for my assistance and told me he appreciates how I kept him updated regarding discharge plan. I informed plan is for patient to be transferred today to [facility].
--- NOTE | 2019-09-19 11:34 | NUR ---
FREQUENT ROUNDING ON PT PT APPEARS STABLE AND IN NO APPARENT DISTRESS. ALL SAFETY MEASURES ARE IN PLACE WILL CONTINUE TO MONITOR.
--- NOTE | 2019-09-19 13:46 | NUR ---
FREQUENT ROUNDING ON PT PT APPEARS STABLE AND IN NO APPARENT DISTRESS. ALL SAFETY MEASURES ARE IN PLACE WILL CONTINUE TO MONITOR. PT FAMILY IS AT BEDSIDE
--- NOTE | 2019-09-19 15:43 | NUR ---
FREQUENT ROUNDING ON PT. PT FAMILY IS AT BEDSIDE ALL SAFETY MEASURES ARE IN PLACE WILL CONTINUE TO MONITOR.
[2019-09-19 16:45] VITALS: BP 122/49
--- NOTE | 2019-09-19 17:24 | NUR ---
CALLED PATIENTS SON ROSHNI AND NOTIFIED HIM THAT HIS FATHER WILL BE TRANSFERRED TO [facility] IN [place] AT 1045 PM OLGA.
--- NOTE | 2019-09-19 17:25 | NUR ---
FREQUENT ROUNDING ON PT PT APPEARS STABLE AND IN NO APPARENT DISTRESS. ALL SAFETY MEASURES ARE IN PLACE WILL CONTINUE TO MONITOR.
--- NOTE | 2019-09-19 17:42 | NUR ---
ADMINISTERED TYLENOL VIA GTUBE PT TEMP 100.8
--- NOTE | 2019-09-19 17:55 | NUR ---
RECEIVED PHONE CALL FROM LORNA FROM [facility] SHE STATED THEY CAN NO LONGER ACCEPT THE PATIENT TO THERE FACILITY AT THIS TIME. SHE STATED THAT THE CURRENT PATIENT IN THERE FACILITY IS REFUSING A ROOMMATE AND THE DONT WANT TO JEOPARDIZE THERE CURRENT PATIENT. NOTIFIED DR. BURR AND DR. SMITH NOTIFIED SAT INSTRUCTOR JOWIE
--- NOTE | 2019-09-19 19:30 | NUR ---
ENDORSED PT TO PM RN RIGHT UPPER ARM PICC LINE IN PLACE. SEIZURE PRECAUTIONS IN PLACE. HEAD OF BED ABOVE 30 DEGREES. 3L 02 VIA NASAL CANULA. GTUBE INFUSING. ALL SAFETY MEASURES ARE IN PLACE
--- NOTE | 2019-09-19 19:35 | NUR ---
RECEIVED REPORT FROM AM RN IN BED. SLEEPING. FAMILY MEMBERS AROUND VISITING. NEEDS WILL BE ANTICIPATED AND WILL BE MET. TOTAL CARE. AFEBRILE. GT IN PLACE INFUSING WELL. HOB UP 30 DEGREES FOR ASPIRATION PRECAUTION. NO COUGHING NOTED. DX. PNA AND CHANGE OF LOC.
[2019-09-19 20:03] VITALS: BP 123/48
--- NOTE | 2019-09-19 21:30 | NUR ---
PT. NEEDS ANTICIPATED AND WILL BE MET. TURNED TO SIDES Q 2H. PILLOW SUPPORT TO PRESSURE AREAS ENFORCED. ISOLATION PRECAUTION. GT INFUSING WELL. AFEBRILE. BED ALARM ON. PT. OPENS EYES WHEN TOUCHED. NON VERBAL.
--- NOTE | 2019-09-19 23:28 | NUR ---
PT. TURNED TO SIDES BY CNAS Q 2H. TOTAL CARE. NEEDS ANTICIPATED AND WILL BE MET. PILLOW SUPPORT TO PRESSURE AREAS. NO RESIDUAL TO GT FEEDING. PADDED SIDERAILS. HOB UP 30 DEGREES FOR ASPIRATION PRECAUTIONS.
[2019-09-20 00:18] VITALS: BP 120/53
--- NOTE | 2019-09-20 00:20 | NUR ---
PT. COUGHING AT THIS TIME. SUCTIONED PHLEGM IN SMALL AMOUNT . RESIDUAL CHECK FROM GT 0 ML. KEPT HOB UP 25 DEGREES FOR ASPIRATION PNEUMONIA PRECAUTION.
--- NOTE | 2019-09-20 00:55 | NUR ---
CALLED RESPIRATORY THERAPIST RT PT. STILL COUGHING INTERMITTENTLY . WHEEZING NOTED. RT ATTENDING TO PT NOW. NEEDS ANTICIPATED AND MET. TOTAL CARE.
--- NOTE | 2019-09-20 01:06 | NUR ---
PER RESPIRATORY THERAPIST PT. SOUNDS LIKE FLUID OVER LOAD . INFORMED RESIDENT MD AND STATED "OK" HOLD FEEDING FOR NOW. WILL KEEP PT. COMFORTABLE AND NEEDS WILL BE ATTENDED TO AND MET.
--- NOTE | 2019-09-20 01:10 | NUR ---
0100 PATIENT SHORT OF BREATH. SATS ON 2LNC WERE 68%. PLACED PATIENT ON NON REBREATHER AT 15L AT 100% FIO2. PATIENT SXNED. LARGE AMTS OF FROTHY YELLOW SECRETIONS. HHNTX GIVEN. SATS IMPROVED ON 100% FIO2 SATS 97%
[2019-09-20] MEDS ORDERED: FUROSEMIDE 40 MG/4 ML VIAL IVP ONE ×2 (01:45→04:06)
--- NOTE | 2019-09-20 03:46 | NUR ---
ENDORSED TO ANOTHER RN FOR CONTINUITY OF CARE.
--- NOTE | 2019-09-20 03:47 | NUR ---
RECEIVED REPORT FROM COLLEAGUE NOC SHIFT RNCHUCKY. PT SLEEPING WITH NON REBREATHER MASK SLEEPING.SHIFTED BY RT RECENTLY DUE TO FLUID OVERLOAD AND PT HAD DIFFICULTY BREATHING. PT STABLE AT THIS TIME. GT TEMPORARY ON HOLD, PATENT. HOB UP 30 DEGREES FOR ASPIRATION PRECAUTION. NO COUGHING NOTED. ON FALL RISK PRECAUTION.
[2019-09-20] MEDS: NACL 0.9% 1,000 ML IV SCH (05:56)
[2019-09-20 06:37] LABS: ANION GAP 9.8 (8-16); CARBON DIOXIDE 33.1 mmol/L (21-32); CHLORIDE 101 mmol/L (98-107); CREATININE 0.6 mg/dL (0.7-1.3); GLUCOSE 137 mg/dL (74-106); POTASSIUM 3.9 mmol/L (3.5-5.1); SODIUM SERUM 140 mmol/L (136-145); UREA NITROGEN, BLOOD 10 mg/dL (7-18)
[2019-09-20] MEDS: ALBUTEROL SULFATE/IPRATROPIU 3 ML SOL IH SCH ×3 (06:54→19:50)
--- NOTE | 2019-09-20 07:15 | NUR ---
RECEIVED REPORT FROM ORCHARDIST NURSE FOR CONTINUITY OF CARE. PT IN STABLE CONDITION. RESPIRATIONS EVEN AND UNLABORED. IV INTACT AND PATENT. SAFETY MEASURES IN PLACE. BED IN LOW POSITION. BED ALARM ON. CALL LIGHT AT BEDSIDE. WILL CONTINUE TO MONITOR.
[2019-09-20 08:00] VITALS: BP 134/53
[2019-09-20 08:06] LABS: BASOPHILS # (AUTO) 0.1 K/uL (0.00-0.22); BASOPHILS % (AUTO) 0.9 % (0.0-2.0); EOSINOPHILS # (AUTO) 0.1 K/uL (0-0.4); EOSINOPHILS % (AUTO) 0.8 % (0.0-4.0); HEMATOCRIT 30.4 % (36-52); HEMOGLOBIN 9.3 g/dL (12.0-18.0); LYMPHOCYTES # (AUTO) 0.4 K/uL (2.0-11.5); LYMPHOCYTES % (AUTO) 4.8 % (20.5-51.1); MEAN CORPUSCULAR HEMOGLOBIN 27 pg (27-31); MEAN CORPUSCULAR HGB CONC 31 g/dL (33-37); MEAN CORPUSCULAR VOLUME 89.3 fL (80-94); MONOCYTES # (AUTO) 0.4 K/uL (0.8-1.0); MONOCYTES % (AUTO) 4.9 % (1.7-9.3); NEUTROPHILS # (AUTO) 7.3 K/uL (1.8-7.7); NEUTROPHILS % (AUTO) 88.6 % (42.2-75.2); PLATELET COUNT (AUTO) 331 K/uL (140-450); RED CELL DISTRIBUTION WIDTH 18.1 % (11.6-13.7); WHITE BLOOD COUNT (AUTO) 8.3 K/uL (4.8-10.8)
[2019-09-20] MEDS: PIPERACILLIN/TAZOBACTAM 3.375 GM in DEXTROSE 5% 50 ML IV SCH ×3 (08:22→18:43)
[2019-09-20] MEDS: levETIRAcetam 100 MG/ML ORASYR GT SCH (08:23)
[2019-09-20] MEDS: FERROUS SULFATE 300 MG/5 ML UDC GT SCH (08:24)
[2019-09-20] MEDS: LACTOBACILLUS RHAMNOSUS GG 1 EACH CAP PO SCH (08:24)
[2019-09-20] MEDS: DOCUSATE SODIUM 100 MG GELCAP PO SCH (08:24)
[2019-09-20] MEDS: FINASTERIDE 5 MG TAB PO SCH (08:24)
[2019-09-20] MEDS: ASCORBIC ACID 500 MG/5 ML ORASYR GT SCH (08:24)
[2019-09-20] MEDS: DIGOXIN 0.125 MG/2.5 ML UDC PO SCH (08:24)
[2019-09-20] MEDS: FAMOTIDINE 20 MG TAB PO SCH (08:25)
[2019-09-20] MEDS: DILTIAZEM 30 MG TAB PO SCH (08:25)
[2019-09-20] MEDS: METOPROLOL 25 MG TAB PO SCH (08:30)
--- NOTE | 2019-09-20 08:30 | NUR ---
GAVE ORDERED DUE MEDICATIONS AT THIS TIME. PT TOLERATED WELL. WILL CONTINUE TO MONITOR.
--- NOTE | 2019-09-20 10:45 | NUR ---
CLEANED AND CHANGED PT AT THIS TIME. PT TOLERATED WELL. BED IN LOW POSITION. CALL LIGHT AT BEDSIDE. BED ALARM ON. FAMILY AT BEDSIDE. WILL CONTINUE TO MONITOR.
--- NOTE | 2019-09-20 12:50 | NUR ---
GAVE ORDERED DUE MEDICATIONS AT THIS TIME. PT TOLERATED WELL.
--- NOTE | 2019-09-20 13:58 | NUR ---
CHANGED PT FOR UPCOMING TRANSFER TO [facility]. PT TOLERATED WELL.
[2019-09-20] MEDS: SCOPOLAMINE 1.5 MG/72 HR PATCH TD SCH (14:10)
--- NOTE | 2019-09-20 14:45 | NUR ---
GAVE REPORT TO CINDY STAFF NURSE AT [facility] FOR CONTINUITY OF CARE. ALL QUESTIONS ANSWERED AT THIS TIME.
[2019-09-20 16:00] VITALS: BP 127/48
--- NOTE | 2019-09-20 17:50 | NUR ---
GAVE DISCHARGE INSTRUCTIONS TO ALEXIS BARAKAT. ROSHNI VERBALIZED UNDERSTANDING OF INFORMATION. ALL QUESTIONS ANSWERED AT THIS TIME.
--- NOTE | 2019-09-20 19:12 | NUR ---
CALLED [facility] TO INFORM STAFF THAT EXTRA SYRINGE (NFIT) FOR G-TUBE WILL BE SENT GIVEN BY THE FAMILY.
--- NOTE | 2019-09-20 19:15 | NUR ---
GAVE REPORT TO FIELD SERVICE COORDINATOR NURSE CHUCKY FOR CONTINUITY OF CARE. PT IN STABLE CONDITION.
--- NOTE | 2019-09-20 19:25 | NUR ---
RECEIVED FROM AM RN REPORT RE: PT. FAMILY MEMBERS IN HERE VISITING. PT. FOR TRANSFER TO [facility] AND WAITING FOR TRANSPORTATION TO BE PICKED UP SCHEDULED AT 8 PM. REPORT TO [facility] GIVEN BY AM RN TO RN CNC MAINTENANCE TECHNICIAN. DISCHARGE PAPER WORKS GIVEN TO FAMILY MEMBER AND WILL GIVE TO [employer] TRANSFER PAPER WORKS. PICC LINE IN PLACE AND INFUSING WELL WITH NS AT 30 ML/H. GT IN PLACE AND INTACT. FEEDING HELD PER RESIDENT MD LAST NIGHT. ON 02 WITH OXYMIZER. TOTAL CARE. NEEDS ANTICIPATED AND MET. 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 AFEBRILE.
--- NOTE | 2019-09-20 21:20 | NUR ---
PT. DISCHARGED TO [facility] . ALL DISCHARGE /TRANSFER PAPER WORKS SENT WITH [facility]. REPORT TO SNF GIVEN BY RYANA RN. NO BELONGINGS LEFT BEHIND. FAMILY MEMBERS/DAUGHTERS AND SON AWARE OF TRANSFER.
== END 2019-09-20 21:20 | DRG 871 ==
LOC: MED 17:39 → MTU 21:44
PROVIDERS: ADMIT General Practice; ATTEND General Practice
PROC: 02HV33Z Insertion of Infusion Device into Superior Vena Cava, Percutaneous Approach (ICD-10-PCS; principal; 2019-09-15)
PROC: B548ZZA Ultrasonography of Superior Vena Cava, Guidance (ICD-10-PCS; 2019-09-15)
DX: A41.9 Sepsis, unspecified organism (principal); J69.0 Pneumonitis due to inhalation of food and vomit; J96.01 Acute respiratory failure with hypoxia; G93.41 Metabolic encephalopathy; E43 Unspecified severe protein-calorie malnutrition; G82.50 Quadriplegia, unspecified; E87.1 Hypo-osmolality and hyponatremia; N39.0 Urinary tract infection, site not specified; Z16.12 Extended spectrum beta lactamase (ESBL) resistance; R65.20 Severe sepsis without septic shock; I10 Essential (primary) hypertension; J44.9 Chronic obstructive pulmonary disease, unspecified; E86.0 Dehydration; G40.909 Epilepsy, unspecified, not intractable, without status epilepticus; I48.91 Unspecified atrial fibrillation; Z66 Do not resuscitate; D64.9 Anemia, unspecified; E87.8 Other disorders of electrolyte and fluid balance, not elsewhere classified; R13.10 Dysphagia, unspecified; N40.1 Benign prostatic hyperplasia with lower urinary tract symptoms; R33.8 Other retention of urine; Z74.01 Bed confinement status; B96.20 Unspecified Escherichia coli [E. coli] as the cause of diseases classified elsewhere; Z68.26 Body mass index [BMI] 26.0-26.9, adult; Z79.82 Long term (current) use of aspirin; Z79.84 Long term (current) use of oral hypoglycemic drugs; Z79.4 Long term (current) use of insulin; Z79.899 Other long term (current) drug therapy; Z86.73 Personal history of transient ischemic attack (TIA), and cerebral infarction without residual deficits; Z90.49 Acquired absence of other specified parts of digestive tract; Z83.3 Family history of diabetes mellitus; Z82.49 Family history of ischemic heart disease and other diseases of the circulatory system; Z80.42 Family history of malignant neoplasm of prostate; Z87.891 Personal history of nicotine dependence; Z93.1 Gastrostomy status
CPT/HCPCS: 36415; 36600; 70450; 71045; 80048; 80053; 80162; 80305; 81001; 82140; 82550; 82607; 82728; 82746; 82803; 83036; 83540; 83605; 83735; 83880; 84100; 84443; 84484; 85025; 85045; 85610; 85730; 87040; 87070; 87081; 87086; 87186; 87205; 89220; 93005; 94640; 96361; 96365; 99291; C1751; G0480; G0482; J1940; J1956; J2543; J2916; J7030; J7060; J7620; Q0092